=== PATIENT | female | born 1990 | race African-American/Black ===

== ENCOUNTER 2016-05-11 08:47 | Outpatient (CLI) | payer MEDICAID ==
[2016-05-11 09:42] LABS: APPEARANCE,URINE CLEAR; BILIRUBIN,URINE NEGATIVE (NEGATIVE); GLUCOSE, URINE NEGATIVE (NEGATIVE); KETONES,URINE NEGATIVE (NEGATIVE); LEUKOCYTE ESTERASE,URINE NEGATIVE (NEGATIVE); NITRITE,URINE NEGATIVE (NEGATIVE); PROTEIN,URINE NEGATIVE (NEGATIVE); URINE SPECIFIC GRAVITY 1.005; UROBILINOGEN,URINE NEGATIVE mg/dL (<2.0)
[2016-05-11 10:05] LABS: URINE BARBITURATES SCREEN NEGATIVE; URINE METHADONE SCREEN NEGATIVE; URINE PHENCYCLIDINE SCREEN NEGATIVE
--- NOTE | 2016-05-16 09:52 | Antepartum Discharge Summary ---
Antepartum DC Datetime Report Generated by CPN: 05/16/2016 09:52 DIET/ACTIVITY/RESTRICTIONS Diet: Regular (05/11/2016 10:51:Mila Camp, RNC) Diet: Regular (05/11/2016 09:32:Tootie Lee RN) Activity: Normal Activity (05/11/2016 10:51:Mila Camp, RNC) Activity: Normal Activity (05/11/2016 09:32:Tootie Lee RN) Activity Restrictions: No Sexual Activity (05/11/2016 10:51:Mila Camp, RNC) TEACHING/INSTRUCTIONS/REFERRALS Instructions Given To: patient (05/11/2016 10:51:JENNIFER Red) Instructions Given To: patient (05/11/2016 09:32:JENNIFER Red) Instructions Understood: Patient Verbalized Understanding; Support Person Verbalized Understanding (05/11/2016 10:51:JENNIFER Red) Instructions Understood: Patient Verbalized Understanding (05/11/2016 09:32:Tootie Lee RN) Referrals: None (05/11/2016 10:51:JENNIFER Red) Referrals: None (05/11/2016 09:32:Tootie Lee RN) Educational Materials- Other: care notes reviewed and signed for kick counts and labor signs and symptoms to report (05/11/2016 10:51:JENNIFER Red) Educational Materials- Other: PTL _ KICK COUNTS CARE NOTES GIVEN TO PT- QUESTIONS ANSWERED (05/11/2016 09:32:Tootie Lee RN) DISCHARGE INFORMATION Discharged AMA: No (05/11/2016 10:51:JENNIFER Red) Discharged AMA: No (05/11/2016 09:32:Tootie Lee RN) Discharge Date/Time: 05/11/2016 10:58 (05/11/2016 10:51:JENNIFER Red) Discharge Date/Time: 05/11/2016 10:58 (05/11/2016 09:32:JENNIFER Red) Discharged To: Home (05/11/2016 10:51:JENNIFER Red) Discharged To: Home (05/11/2016 09:32:Tootie Lee RN) Discharge Provider Name: Polly Humphrey (05/11/2016 09:32:JENNIFER Red) Accompanied By: self (05/11/2016 09:32:JENNIFER Red) Discharge Method: Ambulatory (05/11/2016 09:32:Tootie Lee RN) Condition: Stable (05/11/2016 09:32:Tootie Lee RN) FOLLOW UP INFORMATION Follow Up With: [email or web address] (05/11/2016 09:32:JENNIFER Red) Follow Up On: As Scheduled (05/11/2016 09:32:JENNIFER Red) Follow Up Phone Number: [email or web address] - (05/11/2016 09:32:JENNIFER Red) GENERAL INSTR-CALL PROVIDER IF: Contractions: Contractions or cramps become more frequent than 8 in one hour or 4 in 20 minutes (05/11/2016 09:32:JENNIFER Red) Period Like Cramps: Period-like cramps or low dull backache that may come and go (05/11/2016 09:32:JENNIFER Red) Cramps/Diarrhea: Abdominal cramps that may be accompanied by diarrhea (05/11/2016 09:32:JENNIFER Red) Gush of Fluid/Blood: Gush of fluid or blood from your vagina (it is normal to have spotting after vaginal exam or intercourse) (05/11/2016 09:32:JENNIFER Red) Vaginal Discharge: Change in the type or amount of vaginal discharge (05/11/2016 09:32:JENNIFER Red) Decreased Movement: Your baby is not moving as much as usual- 4 movements in 1 hour after drinking and resting on side (05/11/2016 09:32:JENNIFER Red)
--- NOTE | 2016-05-16 09:52 | L&D Current Admission ---
Current Admit Datetime Report Generated by CPN: 05/16/2016 09:52 ADMISSION INFORMATION Chief Complaint: Contractions; Uterine Cramping (05/11/2016 09:15:Tootie Lee RN)
--- NOTE | 2016-05-16 09:53 | L&D Flow Sheet ---
LD Flowsheet Datetime Report Generated by CPN: 05/16/2016 09:53 Datetime: 05/11/2016 10:41 Pain Pain Scale: 0 (Mila Camp, RNC) Pain Presence: None/Denies (Mila Camp, RNC) Pain Type: N/A (Mila Camp, RNC) Patient Care Comments: EFM off for discharge to home . See discharge summary (Mila Camp, RNC) LaborFlag: OB Triage (QS system process) Datetime: 05/11/2016 10:40 Uterine Activity Monitor Mode: External; Palpation (Mila Camp, RNC) Frequency (min): irregular (Mila Camp, RNC) Quality: Mild (Mila Camp, RNC) Duration (sec): 30-40 (Mila Camp, RNC) Resting Tone (Palpate): Relaxed (Mila Camp, RNC) Assessment A Monitor Mode: External US; Auscultation (Mila Camp, RNC) FHR Baseline Rate : 140 (Mila Camp, RNC) FHR Baseline Changes: No Baseline Change (Mila Camp, RNC) Variability: Moderate 6-25 bpm (Mila Camp, RNC) Accelerations: 15X15 (Mila Camp, RNC) Decelerations: None (Mila Camp, RNC) Datetime: 05/11/2016 10:32 Provider Reviewed Strip: Yes (Mila Camp, RNC) Communication Communication: Provider Orders Received (Mila Camp, RNC) Communication Comments: H Kam CNM present of unit , strip and history reviewed. Labs noted. Discharge orders received (Mila Camp, RNC) Datetime: 05/11/2016 10:30 Uterine Activity Monitor Mode: External; Palpation (Mila Camp, RNC) Monitor Interventions for UA: [place] Adjusted (Mila Camp, RNC) Frequency (min): denies (Mila Camp, RNC) Resting Tone (Palpate): Relaxed (Mila Camp, RNC) Assessment A Monitor Mode: External US; Auscultation (Mila Camp, RNC) Monitor Interventions for FHR: Ultrasound Adjusted (Mila Camp, RNC) FHR Baseline Rate : 140 (Mila Camp, RNC) FHR Baseline Changes: No Baseline Change (Mila Camp, RNC) Variability: Moderate 6-25 bpm (Mila Camp, RNC) Accelerations: 15X15 (Mila Camp, RNC) Decelerations: None (Mila Camp, RNC) Datetime: 05/11/2016 10:14 NBP Sys/Margarita/Mean (mmHg): 96 (QS system process) : 51 (QS system process) : 69 (QS system process) Pulse: 93 (QS system process) Respirations: 16 (Mila Camp, RNC) LaborFlag: OB Triage (QS system process) Datetime: 05/11/2016 10:00 Uterine Activity Monitor Mode: External; Palpation (Mila Camp, RNC) Monitor Interventions for UA: [place] Adjusted (Mila Camp, RNC) Frequency (min): irregular (Mila Camp, RNC) Quality: Mild (Mila Camp, RNC) Duration (sec): 40-50 (Mila Camp, RNC) Pattern: Normal: <= 5 Contractions in 10 Minutes (Mila Camp, RNC) Resting Tone (Palpate): Relaxed (Mila Camp, RNC) Assessment A Monitor Mode: External US; Auscultation (Mila Camp, RNC) FHR Baseline Rate : 140 (Mila Camp, RNC) FHR Baseline Changes: No Baseline Change (Mila Camp, RNC) Variability: Moderate 6-25 bpm (Mila Camp, RNC) Accelerations: 15X15 (Mila Camp, RNC) Decelerations: None (Mila Camp, RNC) Datetime: 05/11/2016 09:44 NBP Sys/Margarita/Mean (mmHg): 95 (QS system process) : 50 (QS system process) : 66 (QS system process) Pulse: 85 (QS system process) Respirations: 16 (Mila Camp, RNC) LaborFlag: OB Triage (QS system process) Datetime: 05/11/2016 09:30 Uterine Activity Monitor Mode: External; Palpation (Mila Camp, RNC) Frequency (min): denies (Mila Camp, RNC) Resting Tone (Palpate): Relaxed (Mila Camp, RNC) Assessment A Monitor Mode: External US; Auscultation (Mila Camp, RNC) FHR Baseline Rate : 150 (Mila Camp, RNC) FHR Baseline Changes: No Baseline Change (Mila Camp, RNC) Variability: Moderate 6-25 bpm (Mila Camp, RNC) Accelerations: 15X15 (Mila Camp, RNC) Decelerations: None (Mila Camp, RNC) Datetime: 05/11/2016 09:15 Vital Signs Stage of : OB Triage (Tootie Lee RN) NBP Sys/Margarita/Mean (mmHg): 90 (QS system process) : 55 (QS system process) : 70 (QS system process) Pulse: 79 (QS system process) Uterine Activity Monitor Mode: External (Tootie Lee RN) Monitor Interventions for UA: [place] Adjusted (Tootie Lee RN) Frequency (min): IRREG (Tootie Lee, RN) Resting Tone (Palpate): Relaxed (Tootie Lee, JAIRON) Assessment A Monitor Mode: External US (Tootie Lee, JAIRON) Monitor Interventions for FHR: Ultrasound Adjusted (Tootie Lee, JAIRON) FHR Baseline Rate : 150 (Tootie Lee, JAIRON) Pain Pain Scale: 0 (Tootie Lee, JAIRON) Pain Presence: None/Denies (Tootie Lee, JAIRON) Pain Type: N/A (Tootie Lee, JAIRON) Pain Goal: 1 (Tootie Lee, JAIRON) Pain Relief Measures: Comfort Measures (Tootie Lee, JAIRON) Vaginal Exam Dilatation (cm): 1.0 (Tootie Lee RN) Effacement (%): 0 (Tootie Lee RN) Station: -3 (Tootie Lee RN) Exam by: Brad PIZANO CNM IN OFFICE (Tootie Lee RN) Membrane Status: Intact (Tootie Lee RN) Vaginal Bleeding: None (Tootie Lee RN) Maternal Assessment Level of Consciousness: Fully Conscious (Tootie Lee RN) DTR's/Clonus: DTRs 1+; No Clonus (Tootie Lee RN) Headache: Denies (Tootie Lee RN) Nausea/Vomiting: Present (Annotations: NAUSEA X 2 WEEKS- NO EMESIS) (Tootie Lee RN) RUQ Epigastric Pain: Denies (Tootie Lee, JAIRON) Patient Care Patient Position/Activity: Left Tilt; Low Fowlers (Tootie Lee RN) I/O Interventions: Popsicle; Up to BR (Tootie Lee RN) Teaching Instructional Method: Verbal; Patient Instructed; Verbalized Understanding (Tootie Lee RN) Plan of Care: Plan of Care Discussed; Labor (Tootie Lee RN) Unit Routine: Duarte to Room; Call Nicholas; Bed; Phone/Cell Phone Use; Unit Personnel; Handwashing; Monitoring; Safety/Fall Risk Prevention; Diet/Nutrition Services; Bathroom Privileges (Tootie Lee RN) Pain Management: Pain Scale/Goals; Comfort Measures (Tootie Lee RN) PTL/PROM: Hydration (Tootie Lee RN) Related: Common Discomforts of ; Maternal Physical Changes; Maternal Emotional Changes; Nutrition; Hydration; Activity and Rest (Tootie Lee RN) Communication Communication: RN at Bedside; RN Reviewed Strip (Tootie Lee RN) LaborFlag: OB Triage (QS system process) Datetime: 05/11/2016 09:10 Teaching Instructional Method: Demo; Verbal; Patient Instructed; Verbalized Understanding (JENNIFER Red) Plan of Care: Plan of Care Discussed; Labor (JENNIFER Red) Unit Routine: Duarte to Room; Call Nicholas; Bed (JENNIFER Red) Related: Nutrition; Hydration (JENNIFER Red)
--- NOTE | 2016-05-16 09:53 | L&D General Admission ---
General Admit Datetime Report Generated by N: 05/16/2016 09:52 INFORMATION EDC: 07/05/2016 00:00 (05/11/2016 08:47:Tootie Lee RN) : 4 (05/11/2016 08:47:Tootie Lee RN) Para: 3 (05/11/2016 10:51:JENNIFER Red) Para: 3 (05/11/2016 09:32:Tootie Lee RN) Para: 3 (05/11/2016 08:47:Tootie Lee RN) Term: 3 (05/11/2016 08:47:Tootie Lee RN) : 0 (05/11/2016 08:47:Tootie Lee RN) Spontaneous Abortions: 0 (05/11/2016 08:47:Tootie Lee RN) Induced Abortions: 0 (05/11/2016 08:47:Tootie Lee RN) Livin (05/11/2016 08:47:Tootie Lee RN) Cesareans: 0 (05/11/2016 08:47:Tootie Lee RN) VBACs: 0 (05/11/2016 08:47:Tootie Lee RN) Ectopic: 0 (05/11/2016 08:47:Tootie Lee RN) Multiple Births: 0 (05/11/2016 08:47:Tootie Lee RN) Baby, Number in Womb: 1 (05/11/2016 10:51:JENNIFER Red) Baby, Number in Womb: 1 (05/11/2016 09:32:Tootie Lee RN) Baby, Number in Womb: 1 (05/11/2016 08:47:Tootie Lee RN) CARE Primary Lip Cutter And Scorer: [facility] (05/11/2016 08:47:Tootie Lee RN) Adequate Care: Yes (05/11/2016 08:47:Tootie Lee RN) Height (in): 60 (05/11/2016 09:05:QS system process) ALLERGIES Medication Allergy: No (05/11/2016 08:47:Tootie Lee RN) Latex Allergy: No Latex Allergies (05/11/2016 08:47:Tootie Lee RN) Food Allergies: NONE (05/11/2016 08:47:Tootie Lee RN) Environmental Allergies: NONE (05/11/2016 08:47:Tootie Lee RN) COMMUNICATION Primary Language: Hungarian (05/11/2016 08:47:Tootie Lee RN) Medical Tx Preferred Language: Hungarian (05/11/2016 08:47:Tootie Lee RN) Communication Barrier(s): None (05/11/2016 08:47:Tootie Lee RN) DRUG AND ALCOHOL USE Alcohol: No (05/11/2016 08:47:Tootie Lee RN) Cigarettes: Never Smoker. [id number] (05/11/2016 08:47:Tootie Lee RN) Marijuana: No (05/11/2016 08:47:Tootie Lee RN) Cocaine: No (05/11/2016 08:47:Tootie Lee RN) Other Illicit Drugs: No (05/11/2016 08:47:Tootie Lee RN) VACCINE HISTORY Influenza Vaccine: No (05/11/2016 08:47:Tootie Lee RN) Pneumococcal Vaccine: No (05/11/2016 08:47:Tootie Lee RN) Tetanus Vaccine: Uncertain (05/11/2016 08:47:Tootie Lee RN) Tdap Vaccine: No (05/11/2016 08:47:Tootie Lee RN) Hepatitis B Vaccine: Yes (05/11/2016 08:47:Tootie Lee RN) Stereoptician: [facility] (05/11/2016 08:47:Tootie Lee RN) Feeding Preference: Breast (05/11/2016 08:47:Tootie Lee RN) Benefit of Breast Feed Discussed: Yes (05/11/2016 08:47:Tootie Lee RN) Circumcision: Yes (05/11/2016 08:47:Tootie Lee RN) Classes Attended: No (05/11/2016 08:47:Tootie Lee RN) Tubal Ligation: No (05/11/2016 08:47:Tootie Lee RN) Tubal Authorization Signed: N/A (05/11/2016 08:47:Tootie Lee RN) Consent: N/A (05/11/2016 08:47:Tootie Lee RN) Consent Signed: N/A (05/11/2016 08:47:Tootie Lee RN) Pain Management Plans: Epidural (05/11/2016 08:47:Tootie Lee RN) Plans for Labor and Delivery: None (05/11/2016 08:47:Tootie Lee RN) Support Person: ALISA ESCOBAR (05/11/2016 08:47:Tootie Lee RN) Support Person Relationship: Mother (05/11/2016 08:47:Tootie Lee RN) Cultural/Spritual Practice: No (05/11/2016 08:47:Tootie Lee RN) Spir/Cult Dietary Needs: No (05/11/2016 08:47:Tootie Lee RN) LIVING SITUATION/DISCHARGE PLAN Living Arrangements: Apartment (05/11/2016 08:47:Tootie Lee RN) Adequate Access to:: Electric; Heat; Refrigeration; Plumbing/Running water; Phone; Transportation (05/11/2016 08:47:Tootie Lee RN) WIC Program: Yes (05/11/2016 08:47:Tootie Lee RN) Discharge Hand Tier Person: MOTHER (05/11/2016 08:47:Tootie Lee RN) Person to Help after Discharge: MARY (05/11/2016 08:47:Tootie Lee RN) Currently Using Commun Resources: No (05/11/2016 08:47:Tootie Lee RN) Outside Agency/Property Officer: No (05/11/2016 08:47:Tootie Lee RN) Car Seat for Discharge: No (05/11/2016 08:47:Tootie Lee RN) Need Help to Obtain Car Seat: WILL HAVE BEFORE D/C HOME (05/11/2016 08:47:Tootie eLe RN) Adoption Requested: No (05/11/2016 08:47:Tootie Lee RN) Pt Contact w/infant Post : N/A (05/11/2016 08:47:Tootie Lee RN) OB/PREVIOUS HISTORY Previous Procedures: Ultrasound (05/11/2016 08:47:Tootie Lee RN) Current Procedures: Ultrasound (05/11/2016 08:47:Tootie Lee RN) History of Previous : No (05/11/2016 08:47:Tootie Lee RN) History of Gestational Diabetes: No (05/11/2016 08:47:Tootie Lee RN) History of PIH: No (05/11/2016 08:47:Tootie Lee RN) History of Incompetent Cervix: No (05/11/2016 08:47:Tootie Lee RN) History of Placenta Previa/Abrup: No (05/11/2016 08:47:Tootie Lee RN) History of Macrosomia: No (05/11/2016 08:47:Tootie Lee RN) History of IUGR: No (05/11/2016 08:47:Tootie Lee RN) History of Hemorrhage: No (05/11/2016 08:47:Tootie Lee RN) History of Loss/Stillborn: No (05/11/2016 08:47:Tootie Lee RN) History of : No (05/11/2016 08:47:Tootie Lee RN) History of D (Rh) Sensitization: No (05/11/2016 08:47:Tootie Lee RN) History Recurrent Loss/Stillborn: No (05/11/2016 08:47:Tootie Lee RN) History Depression/PP Depression: No (05/11/2016 08:47:Tootie Lee RN) History of Uterine Anomaly/EVANGELIST: No (05/11/2016 08:47:Tootie Lee RN) History of Infertility: No (05/11/2016 08:47:Tootie Lee RN) History of ART Treatment: No (05/11/2016 08:47:Tootie Lee RN) History of EVANGELIST: No (05/11/2016 08:47:Tootie Lee RN) MEDICAL HISTORY Med Hx Diabetes: No (05/11/2016 08:47:Tootie Lee RN) Med Hx Hypertension: No (05/11/2016 08:47:Tootie Lee RN) Med Hx Heart Disease: No (05/11/2016 08:47:Tootie Lee RN) Med Hx Autoimmune Disorder: No (05/11/2016 08:47:Tootie Lee RN) Med Hx Kidney Disease/UTI: No (05/11/2016 08:47:Tootie Lee RN) Med Hx Neurologic/Epilepsy: No (05/11/2016 08:47:Tootie Lee RN) Med Hx Psychiatric Disorders: No (05/11/2016 08:47:Tootie Lee RN) Med Hx Hepatitis/Liver Disease: No (05/11/2016 08:47:Tootie Lee RN) Med Hx Varicosities/Phlebitis: No (05/11/2016 08:47:Tootie Lee RN) Med Hx Thyroid Dysfunction: No (05/11/2016 08:47:Tootie Lee RN) Med Hx Trauma/Violence: No (05/11/2016 08:47:Tootie Lee RN) Med Hx Blood Transfusion: No (05/11/2016 08:47:Tootie Lee RN) Med Hx Pulmonary (Asthma,TB): No (05/11/2016 08:47:Tootie Lee RN) Med Hx Breast: No (05/11/2016 08:47:Tootie Lee RN) Med Hx WINDOW UNIT AIR CONDITIONING 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 Surgery: No (05/11/2016 08:47:Tootie Lee RN) Med Hx Hospitalization/Surgery: Yes (05/11/2016 08:47:Tootie Lee RN) Med Hx Anesthetic Complications: No (05/11/2016 08:47:Tootie Lee RN) Med Hx Abnormal Pap Smear: Yes (05/11/2016 08:47:Tootie Lee RN) Other Medical Diseases: Yes (05/11/2016 08:47:Tootie Lee RN) Med Hx Significant Family Hx: No (05/11/2016 08:47:Tootie Lee RN) Details of Med/Surg Hx: CHILDBIRTH ABN PAP THIS - REPEAT PP ANEMIA THIS WITH IRON INFUSION (05/11/2016 08:47:Tootie Lee RN) INFECTIOUS HISTORY Inf Hx Gonorrhea: No (05/11/2016 08:47:Tootie Lee RN) Inf Hx Chlamydia: No (05/11/2016 08:47:Tootie Lee RN) Inf Hx Syphilis: No (05/11/2016 08:47:Tootie Lee RN) Inf Hx HIV/AIDS: No (05/11/2016 08:47:Tootie Lee RN) Inf Hx Human Papilloma Virus: No (05/11/2016 08:47:Tootie Lee RN) Inf Hx Pt/Partner Genital Herpes: No (05/11/2016 08:47:Tootie Lee RN) Inf Hx Tuberculosis/Exposure: No (05/11/2016 08:47:Tootie Lee RN) Inf Hx Hepatitis B,C: No (05/11/2016 08:47:Tootie Lee RN) Inf Hx Rash or Viral Illness: No (05/11/2016 08:47:Tootie Lee RN) GENETIC HISTORY Gen Hx Age >=35 at SLOAN: No (05/11/2016 08:47:Tootie Lee RN) Gen Hx Thalassemia: No (05/11/2016 08:47:Tootie Lee RN) Gen Hx Congenital Heart Defect: No (05/11/2016 08:47:Tootie Lee RN) Gen Hx Neural Tube Defect: No (05/11/2016 08:47:Tootie Lee RN) Gen Hx Down's Syndrome: No (05/11/2016 08:47:Tootie Lee RN) Gen Hx Terry-Sachs: No (05/11/2016 08:47:Tootie Lee RN) Gen Hx Zi: No (05/11/2016 08:47:Tootie Lee RN) Gen Hx Familial Dysautonomia: No (05/11/2016 08:47:Tootie Lee RN) Gen Hx Sickle Cell Disease/Trait: No (05/11/2016 08:47:Tootie Lee RN) Gen Hx Hemophilia/Blood Disorder: No (05/11/2016 08:47:Tootie Lee RN) Gen Hx Muscular Dystrophy: No (05/11/2016 08:47:Tootie Lee RN) Gen Hx Cystic Fibrosis: No (05/11/2016 08:47:Tootie Lee RN) Gen Hx Huntingtons Chorea: No (05/11/2016 08:47:Tootie Lee RN) Gen Hx Mental Retardation/Autism: No (05/11/2016 08:47:Tootie Lee RN) Gen Hx Tested for Fragile X: No (05/11/2016 08:47:Tootie Lee RN) Gen Hx Other Inher/Chromosomal: No (05/11/2016 08:47:Tootie Lee RN) Gen Hx Maternal Metabolic DO: No (05/11/2016 08:47:Tootie Lee RN) Gen Hx Pt Father or FOB Defect: No (05/11/2016 08:47:Tootie Lee RN) Gen Hx Other Genetic History: No (05/11/2016 08:47:Tootie Lee RN) Gen Hx Drugs/Meds since LMP: No (05/11/2016 08:47:Tootie Lee RN)
--- NOTE | 2016-05-16 09:54 | Non Stress Test Report ---
Non Stress Test Datetime Report Generated by CPN: 05/16/2016 09:53 DEMOGRAPHIC EGA NST: 32.1 INDICATION Indication for Study: Ordered by Provider Indication for Study (NST) Other: LABOR CHECK- UC'S VITAL SIGNS Temperature - NST: 98.1 Pulse - NST: 79 RESP - NST: 16 NBPSYS NST: 90 NBPDIA NST: 55 MONITORING Monitor Explained: Monitor Explained; Test Explained; Patient Verbalized Understanding Time on Monitor: 05/11/2016 09:11 NST INTERVENTIONS NST Interventions: PO Hydration; Reposition Patient BABY A: [id number] Movement : Present
--- NOTE | 2016-05-16 09:54 | L&D Discharge Summary ---
OB Discharge Summary Datetime Report Generated by CPN: 05/16/2016 09:54 DISCHARGE DIAGNOSIS Diagnosis/Symptoms: Labor Diagnoses/Symptoms Other: iup 32.1 contractions not in labor Gestation: 32.1 Number of Babies in Womb: 1 Parity: 3 DIET/ACTIVITY/RESTRICTIONS Diet: Regular Activity: Normal Activity Activity Restrictions: No Sexual Activity TEACHING/INSTRUCTIONS/REFERRALS Instructions Given To: patient Instructions Understood: Patient Verbalized Understanding; Support Person Verbalized Understanding Referrals: None Educational Materials- Other: care notes reviewed and signed for kick counts and labor signs and symptoms to report DISCHARGE INFORMATION Discharged AMA: No Discharge Date/Time: 05/11/2016 10:58 Discharged To: Home Discharge Provider Name: Kam, H Accompanied By: self Discharge Method: Ambulatory Condition: Stable FOLLOW UP INFORMATION Follow Up With: [facility] Follow Up On: As Scheduled Follow Up Phone Number: [facility] - GENERAL INSTR-CALL PROVIDER IF: Contractions: Contractions or cramps become more frequent than 8 in one hour or 4 in 20 minutes Period Like Cramps: Period-like cramps or low dull backache that may come and go Cramps/Diarrhea: Abdominal cramps that may be accompanied by diarrhea Gush of Fluid/Blood: Gush of fluid or blood from your vagina (it is normal to have spotting after vaginal exam or intercourse) Vaginal Discharge: Change in the type or amount of vaginal discharge Decreased Movement: Your baby is not moving as much as usual- 4 movements in 1 hour after drinking and resting on side
== END 2016-05-11 10:58 | disposition home or self-care (01) ==
LOC: LC 08:47
PROVIDERS: ATTEND Obstetrics & Gynecology
PROC: 4A1HXCZ Monitoring of Products of Conception, Cardiac Rate, External Approach (ICD-10-PCS; principal; 2016-05-11)
DX: Z34.93 Encounter for supervision of normal pregnancy, unspecified, third trimester (principal); Z3A.32 32 weeks gestation of pregnancy
CPT/HCPCS: 59025; 80307; 81001

== ENCOUNTER 2016-05-18 15:40 | Outpatient (CLI) | payer MEDICAID ==
[2016-05-18] MEDS ORDERED: BETAMET ACET/BETAMET NA INJ 6 MG/1 ML IM ONE (15:50)
[2016-05-18 16:17] LABS: APPEARANCE,URINE CLEAR; BILIRUBIN,URINE NEGATIVE (NEGATIVE); GLUCOSE, URINE NEGATIVE (NEGATIVE); KETONES,URINE NEGATIVE (NEGATIVE); LEUKOCYTE ESTERASE,URINE NEGATIVE (NEGATIVE); NITRITE,URINE NEGATIVE (NEGATIVE); PROTEIN,URINE NEGATIVE (NEGATIVE); URINE SPECIFIC GRAVITY 1.009; UROBILINOGEN,URINE NEGATIVE mg/dL (<2.0)
[2016-05-18] MEDS ORDERED: BETAMET ACET/BETAMET NA INJ 6 MG/1 ML ONE (16:21)
[2016-05-18 16:33] LABS: URINE BARBITURATES SCREEN NEGATIVE; URINE METHADONE SCREEN NEGATIVE; URINE PHENCYCLIDINE SCREEN NEGATIVE
[2016-05-18 17:44] LABS: CHLAM PCR NOT DETECTED (NOT DETECT)
--- NOTE | 2016-05-18 18:14 | Non Stress Test Report ---
Non Stress Test Datetime Report Generated by CPN: 05/18/2016 18:14 DEMOGRAPHIC EGA NST: 33.1 EGA NST: 32.1 INDICATION Indication for Study: labor Indication for Study: Ordered by Provider Indication for Study (NST) Other: LC Indication for Study (NST) Other: LABOR CHECK- UC'S VITAL SIGNS Temperature - NST: 98.1 Pulse - NST: 79 RESP - NST: 16 NBPSYS NST: 90 NBPDIA NST: 55 MONITORING Monitor Explained: Monitor Explained; Test Explained; Patient Verbalized Understanding Monitor Explained: Monitor Explained; Test Explained; Patient Verbalized Understanding Time on Monitor: 05/18/2016 17:02 Time on Monitor: 05/11/2016 09:11 Time off Monitor: 05/18/2016 17:50 NST Duration: 48 NST INTERVENTIONS NST Interventions: PO Hydration; IV Fluids NST Interventions: PO Hydration; Reposition Patient Physician Notified NST: Shaver BABY A: [id number] BABY A Movement : Present Movement : Present Contraction Frequency : 3-11 FHR Baseline : 150 Accelerations : 15X15 Decelerations : Variable Variability : Moderate 6-25bpm NST Review: Meets Criteria for Reactive NST NST Review and Verified By : Mila Camp RNC NST Results: Reactive NST COMMENTS NST Comments: Dr. Shaver on unit and reviewed strip NST REPORT Report Trigger: Send Report
--- NOTE | 2016-05-19 04:45 | L&D Flow Sheet ---
LD Flowsheet Datetime Report Generated by CPN: 05/19/2016 04:45 Datetime: 05/18/2016 17:50 I/O Interventions: Up to BR (Maricruz Garcia, RN) Datetime: 05/18/2016 17:49 Provider Reviewed Strip: Yes (CATHI Millard Communication: Provider Orders Received (Maricruz Garcia RN) Provider Notified (Name): Dr. Shaver (CATHI Millard Notification Reason: Status Update; Status; Labor Status; Uterine Activity (Maricruz Garcia RN) Communication Comments: Notified provider of FHTs and CTXs. Received order to discharge patient with labor signs and symptoms and when to return to the hospital. Instruct patient to return to hospital at 1600 tomorrow for her 2nd Betamethsone shot (Maricruz Garcia RN) Datetime: 05/18/2016 17:30 Monitor Mode: External (Maricruz Garcia RN) Frequency (min): irreg (Maricruz Garcia RN) Quality: Mild (Maricruz Garcia RN) Duration (sec): 50-60 (Maricruz Garcia RN) Resting Tone (Palpate): Relaxed (Maricruz Garcia RN) Monitor Mode: External US (Maricruz Garcia RN) FHR Baseline Rate : 150 (Maricruz Garcia RN) Variability: Moderate 6-25 bpm (Maricruz Garcia RN) Accelerations: 15X15 (Maricruz Garcia RN) Decelerations: Variable (Mraicruz aGrcia RN) Datetime: 05/18/2016 17:27 NBP Sys/Margarita/Mean (mmHg): 107 (QS system process) : 55 (QS system process) : 76 (QS system process) Pulse: 99 (QS system process) LaborFlag: OB Triage (QS system process) Datetime: 05/18/2016 17:06 Provider Reviewed Strip: Yes (Maricruz Garcia RN) Plan of Care: Plan of Care Discussed (Maricruz Garcia RN) Teaching Comments: Dr. Shaver at bedside discussing plan of care with patient. Will infuse this second bag of LR and if contractions remain far apart she will be able to be discharged home and return tomorrow at 1600 for her second betamethasone shot. If her contractions pick up driver and are close together we will observe her overnight. Patient verbalized understanding (Maricruz Garcia RN) Communication: RN at Bedside; Provider at Bedside (Maricruz Garcia RN) Datetime: 05/18/2016 17:04 Exam by: Dr. Shaver (Maricruz Garcia RN) Vaginal Bleeding: None (Maricruz Garcia RN) Cervix, Position: Posterior (Maricruz Garcia RN) Vaginal Exam Comments: 2-3/thick/high (Maricruz Garcia RN) Datetime: 05/18/2016 17:03 IV/Blood Work: New IV Bag Hung (Maricruz Garcia RN) Datetime: 05/18/2016 17:00 Monitor Mode: External (Maricruz Garcia RN) Frequency (min): 6.5-11 (Maricruz Garcia RN) Quality: Mild (Maricruz Garcia RN) Duration (sec): 60-90 (Maricruz Garcia RN) Resting Tone (Palpate): Relaxed (Maricruz Garcia RN) Monitor Mode: External US (Maricruz Garcia RN) FHR Baseline Rate : 150 (Maricruz Garcia RN) Variability: Moderate 6-25 bpm (Maricruz Garcia RN) Accelerations: 15X15 (Maricruz Marlatt, RN) Datetime: 05/18/2016 16:59 NBP Sys/Margarita/Mean (mmHg): 100 (QS system process) : 57 (QS system process) : 74 (QS system process) Pulse: 100 (QS system process) LaborFlag: OB Triage (QS system process) Datetime: 05/18/2016 16:58 I/O Interventions: Up to BR (Maricruz Garcia RN)
--- NOTE | 2016-05-19 04:45 | L&D Admission Assessment ---
LD ADM ASMT Datetime Report Generated by CPN: 05/19/2016 04:45 PATIENT ASSESSMENT Assessment Type: Triage (05/18/2016 15:55:Maricruz Garcia, RN) WEIGHT Weight (lb): 145 (05/18/2016 16:32:QS system process) Weight (kg): 65.9 (05/18/2016 16:32:QS system process) BMI: 28.3 (05/18/2016 16:32:QS system process) PAIN Pain Scale: 2 (05/18/2016 15:55:Maricruz Garcia RN) Pain Presence: Intermittent (05/18/2016 15:55:Maricruz Garcia RN) Pain Type: Cramping; Contraction (05/18/2016 15:55:Maricruz Garcia RN) Pain Location: Abdomen (05/18/2016 15:55:Maricruz Garcia RN) Pain Goal: 0 (05/18/2016 15:55:Maricruz Garcia RN) Pain Related to Contraction: Yes (05/18/2016 15:55:Maricruz Garcia RN) CONTRACTIONS Frequency (min): irreg (05/18/2016 17:30:Maricruz Garcia RN) Frequency (min): 6.5-11 (05/18/2016 17:00:Maricruz Garcia RN) Frequency (min): 3-7.5 (05/18/2016 16:30:Maricruz Garcia RN) Frequency (min): she says they come and go "maybe 5-10 minutes" (05/18/2016 15:55:Maricruz Garcia RN) Duration (sec): 50-60 (05/18/2016 17:30:Maricruz Garcia RN) Duration (sec): 60-90 (05/18/2016 17:00:Maricruz Garcia RN) Duration (sec): 60-90 (05/18/2016 16:30:Maricruz Garcia RN) Quality: Mild (05/18/2016 17:30:Maricruz Garcia RN) Quality: Mild (05/18/2016 17:00:Maricruz Garcia RN) Quality: Mild (05/18/2016 16:30:Maricruz Garcia RN) Resting Tone [place]: Relaxed (05/18/2016 17:30:Maricruz Garcia RN) Resting Tone [place]: Relaxed (05/18/2016 17:00:Maricruz Garcia RN) Resting Tone [place]: Relaxed (05/18/2016 16:30:Maricruz Garcia RN) VAGINAL EXAM Dilatation (cm): 3.0 (05/18/2016 15:55:Maricruz Garcia RN) Effacement (%): 0 (05/18/2016 15:55:Maricruz Garcia RN) Station: -3 (05/18/2016 15:55:Maricruz Garcia RN) NEURO Level of Consciousness: Fully Conscious (05/18/2016 15:55:Maricruz Garcia RN) DTR's/Clonus: DTRs 2+; No Clonus (05/18/2016 15:55:Maricruz Garcia RN) Headache: Denies (05/18/2016 15:55:Maricruz Garcia RN) Dizziness: No (05/18/2016 15:55:Maricruz Garcia RN) Blurred Vision: No (05/18/2016 15:55:Maricruz Garcia RN) Extremity Numbness/Tingling : None (05/18/2016 15:55:Maricruz Garcia RN) Extremity Movement: Full Range of Motion (05/18/2016 15:55:Maricruz Garcia RN) CARDIOVASCULAR Heart Rhythm: Regular (05/18/2016 15:55:Maricruz Garcia RN) Nailbeds: [place] (05/18/2016 15:55:Maricruz Garcia RN) Capillary Refill: Less than 3 Seconds (05/18/2016 15:55:Maricruz Garcia RN) Lower Extremities Edema: None (05/18/2016 15:55:Maricruz Garcia RN) Lower Extremities Edema Degree: None (05/18/2016 15:55:Maricruz Garcia RN) Upper Extremities Edema: None (05/18/2016 15:55:Maricruz Garcia RN) Upper Extremities Edema Degree: None (05/18/2016 15:55:Maricruz Garcia RN) Facial Edema: None (05/18/2016 15:55:Maricruz Garcia RN) [place]'s Sign Left Leg: Negative (05/18/2016 15:55:Maricruz Garcia RN) [place]'s Sign Right Leg: Negative (05/18/2016 15:55:Maricruz Garcia RN) RESPIRATORY Respiratory Effort: Unlabored; Regular Rhythm; Equal Expansion (05/18/2016 15:55:Maricruz Garcia RN) Breath Sounds, Left: Clear and Equal (05/18/2016 15:55:Maricruz Garcia RN) Breath Sounds, Right: Clear and Equal (05/18/2016 15:55:Maricruz Garcia RN) Cough Productivity: None (05/18/2016 15:55:Maricruz Garcia RN) GASTROINTESTINAL Nausea/Vomiting: Denies (05/18/2016 15:55:Maricruz Garcia RN) Bowel Sounds: Normoactive; All Quadrants (05/18/2016 15:55:Maricruz Garcia RN) RUQ Epigastric Pain: Denies (05/18/2016 15:55:Maricruz Garcia RN) Diet Type: Regular diet (05/18/2016 15:55:Maricruz Garcia RN) Last Meal: 05/18/2016 13:00 (05/18/2016 15:55:Maricruz Garcia RN) GENITOURINARY Bladder: Nondistended (05/18/2016 15:55:Maricruz Garcia RN) Frequency of Urination: No (05/18/2016 15:55:Maricruz Garcia RN) Urination Burning: No (05/18/2016 15:55:Maricruz Garcia RN) CVA Tenderness: No (05/18/2016 15:55:Maricruz Garcia RN) Vaginal Bleeding: None (05/18/2016 15:55:Maricruz Garcia RN) Vaginal Discharge Amount: None (05/18/2016 15:55:Maricruz Garcia RN) Vaginal Discharge Color: N/A (05/18/2016 15:55:Maricruz Garcia RN) Vaginal Discharge Character: None (05/18/2016 15:55:Maricruz Garcia RN) INTEGUMENTARY Skin Color: Normal for Race (05/18/2016 15:55:Maricruz Garcia RN) Skin Temperature: Warm (05/18/2016 15:55:Maricruz Garcia RN) Skin Moisture: Dry (05/18/2016 15:55:Maricruz Garcia RN) TOMAS SKIN ASSESSMENT Tomas Scale Sensory Perception: No Impairment- Responds to verbal commands. Has no sensory deficit which would limit ability to feel or voice pain or discomfort (05/18/2016 15:55:Maricruz Garcia RN) Tomas Scale Moisture: Rarely Moist- Skin is usually dry. Linen only requires changing at routine intervals (05/18/2016 15:55:Maricruz Garcia RN) Tomas Scale Activity: Walks Frequently- Walks outside the room at least twice a day and inside room at least every 2 hours during the day. (05/18/2016 15:55:Maricruz Garcia RN) Tomas Scale Mobility: No Limitations- Makes major and frequent changes in position without assistance (05/18/2016 15:55:Maricruz Garcia RN) Tomas Scale Nutrition: Excellent- Eats most of every meal. Never refuses a meal. Usually eats a total of 4 or more servings of meat and dairy products. Occasionally eats between meals. Does not require supplementation (05/18/2016 15:55:Maricruz Garcia RN) Tomas Scale Friction and Shear: No Apparent Problem- Moves in bed and in chair independently and has sufficient muscle strength to lift up completely during move. Maintains good position in bed or chair at all times (05/18/2016 15:55:Maricruz Garcia RN) Tomas Scale Total: 23 (05/18/2016 15:55:QS system process) Tomas Scale Risk: No Risk of Pressure Ulcer Noted at this Time (05/18/2016 15:55:QS system process) SUPPORT Emotional State: Calm/Relaxed (05/18/2016 15:55:Maricruz Garcia RN) SAFETY Call Nicholas Within Reach: Yes (05/18/2016 15:55:Maricruz Garcia RN) Side Rails Up: Yes (05/18/2016 15:55:Maricruz Garcia RN) Bed Wheels Locked: Yes (05/18/2016 15:55:Maricruz Garcia RN) Arm Bands Present: Yes (05/18/2016 15:55:Maricruz Garcia RN) FALL SCREEN Fall Risk History of Falling: (0) No (05/18/2016 15:55:Maricruz Garcia RN) Fall Risk Secondary Diagnosis: (0) No (05/18/2016 15:55:Maricruz Garcia RN) Fall Risk Ambulatory Aid: (0) None/Bedrest/Wheelchair/Nurse Assist (05/18/2016 15:55:Maricruz Garcia RN) Fall Risk IV Therapy: (0) No (05/18/2016 15:55:Maricruz Garcia RN) Fall Risk Gait: (0) Normal/Bedrest/Immobile (05/18/2016 15:55:Maricruz Garcia RN) Fall Risk Mental Status: (0) Oriented to Own Ability (05/18/2016 15:55:Maricruz Garcia RN) Fall Risk Score: 0 (05/18/2016 15:55:QS system process) Fall Risk Score Definition: No Risk: No action required (05/18/2016 15:55:QS system process) BABY A FHR Baseline Rate (bpm) Baby A: 150 (05/18/2016 17:30:Maricruz Garcia RN) FHR Baseline Rate (bpm) Baby A: 150 (05/18/2016 17:00:Maricruz Garcia RN) FHR Baseline Rate (bpm) Baby A: 160 (05/18/2016 16:30:Maricruz Garcia RN) Variability Baby A: Moderate 6-25 bpm (05/18/2016 17:30:Maricruz Garcia RN) Variability Baby A: Moderate 6-25 bpm (05/18/2016 17:00:Maricruz Garcia RN) Variability Baby A: Moderate 6-25 bpm (05/18/2016 16:30:Maricruz Garcia RN) Accelerations Baby A: 15X15 (05/18/2016 17:30:Maricruz Garcia RN) Accelerations Baby A: 15X15 (05/18/2016 17:00:Maricruz Garcia RN) Accelerations Baby A: 15X15 (05/18/2016 16:30:Maricruz Garcia RN) Decelerations Baby A: Variable (05/18/2016 17:30:Maricruz Garcia RN) Decelerations Baby A: Variable (05/18/2016 16:30:Maricruz Garcia RN) ADDITIONAL COMMENTS Comments: GBS culture obtain _ GC/Chlam culture obtained (05/18/2016 16:00:Maricruz Garcia RN)
--- NOTE | 2016-05-19 04:45 | L&D General Admission ---
General Admit Datetime Report Generated by CPN: 05/19/2016 04:45 INFORMATION Patient Age: 24 (08/07/2014 08:54:QS system process) EDC: 07/05/2016 00:00 (05/11/2016 08:47:Tootie Lee RN) : 4 (05/11/2016 08:47:Tootie Lee RN) Para: 3 (05/11/2016 10:51:JENNIFER Red) Para: 3 (05/11/2016 09:32:Tootie Lee RN) Para: 3 (05/11/2016 08:47:Tootie Lee RN) Term: 3 (05/11/2016 08:47:Tootie Lee RN) : 0 (05/11/2016 08:47:Tootie Lee RN) Spontaneous Abortions: 0 (05/11/2016 08:47:Tootie Lee RN) Induced Abortions: 0 (05/11/2016 08:47:Tootie Lee RN) Livin (05/11/2016 08:47:Tootie Lee RN) Cesareans: 0 (05/11/2016 08:47:Tootie Lee RN) VBACs: 0 (05/11/2016 08:47:Tootie Lee RN) Ectopic: 0 (05/11/2016 08:47:Tootie Lee RN) Multiple Births: 0 (05/11/2016 08:47:Tootie Lee RN) Baby, Number in Womb: 1 (05/11/2016 10:51:JENNIFER Red) Baby, Number in Womb: 1 (05/11/2016 09:32:Tootie Lee RN) Baby, Number in Womb: 1 (05/11/2016 08:47:Tootie Lee RN) CARE Primary 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: [facility] (05/11/2016 08:47:Tootie Lee RN) Adequate Care: Yes (05/11/2016 08:47:Tootie Lee RN) Height (in): 60 (05/11/2016 09:05:QS system process) ALLERGIES Medication Allergy: No (05/11/2016 08:47:Tootie Lee RN) Medication Allergies: No Known Allergies (05/18/2016) (05/18/2016 16:31:QS system process) Medication Allergies: No Known Allergies (10/02/2014) (11/22/2014 17:45:QS system process) Medication Allergies: No Known Allergies (08/24/2014) (09/01/2014 19:47:QS system process) Medication Allergies: No Known Allergies (11/06/2013) (08/07/2014 08:54:QS system process) Latex Allergy: No Latex Allergies (05/11/2016 08:47:Tootie Lee RN) Food Allergies: NONE (05/11/2016 08:47:Tootie Lee RN) Environmental Allergies: NONE (05/11/2016 08:47:Tootie Lee RN) COMMUNICATION Primary Language: Georgian (05/11/2016 08:47:Tootie Lee RN) Medical Tx Preferred Language: Georgian (05/11/2016 08:47:Tootie Lee RN) Communication Barrier(s): None (05/11/2016 08:47:Tootie Lee RN) DEMOGRAPHICS Address: [address] [place] [address] (04/25/2016 12:10:QS system process) Address: [address] [place] [address] (09/01/2014 19:47:QS system process) Address: [address] [place] [address] (08/07/2014 08:54:QS system process) Zipcode: [address] (08/07/2014 08:54:QS system process) Home (09/09/2015 11:52:QS system process) Home (09/09/2014 13:31:QS system process) Home (09/01/2014 19:47:QS system process) Home (08/07/2014 08:54:QS system process) Work (09/09/2014 13:31:QS system process) SSN: [id number] (08/07/2014 08:54:QS system process) Next of Kin Name: ALISA ESCOBAR (08/07/2014 08:54:QS system process) Next of Kin (09/09/2014 13:31:QS system process) Next of Kin (08/07/2014 08:54:QS system process) Next of Kin Relationship: MO (08/07/2014 08:54:QS system process) Date of : 1990 (08/07/2014 08:54:QS system process) Marital Status: Single (08/07/2014 08:54:QS system process) Sex: Female (08/07/2014 08:54:QS system process) Race: (08/07/2014 08:54:QS system process) Ethnicity: Non- or (08/07/2014 08:54:QS system process) Gnosticist: None (08/07/2014 08:54:QS system process) DRUG AND ALCOHOL USE Alcohol: No (05/11/2016 08:47:Tootie Lee RN) Cigarettes: Never Smoker. [id number] (05/11/2016 08:47:Tootie Lee RN) Marijuana: No (05/11/2016 08:47:Tootie Lee RN) Cocaine: No (05/11/2016 08:47:Tootie Lee RN) Other Illicit Drugs: No (05/11/2016 08:47:Tootie Lee RN) VACCINE HISTORY Influenza Vaccine: No (05/11/2016 08:47:Tootie Lee RN) Pneumococcal Vaccine: No (05/11/2016 08:47:Tootie Lee RN) Tetanus Vaccine: Uncertain (05/11/2016 08:47:Tootie Lee RN) Tdap Vaccine: No (05/11/2016 08:47:Tootie Lee RN) Hepatitis B Vaccine: Yes (05/11/2016 08:47:Tootie Lee RN) Admissions Advisor: [facility] (05/11/2016 08:47:Tootie Lee RN) Feeding Preference: Breast (05/11/2016 08:47:Tootie Lee RN) Benefit of Breast Feed Discussed: Yes (05/11/2016 08:47:Tootie Lee RN) Circumcision: Yes (05/11/2016 08:47:Tootie Lee RN) Classes Attended: No (05/11/2016 08:47:Tootie Lee RN) Tubal Ligation: No (05/11/2016 08:47:Tootie Lee RN) Tubal Authorization Signed: N/A (05/11/2016 08:47:Tootie Lee RN) Consent: N/A (05/11/2016 08:47:Tootie Lee RN) Consent Signed: N/A (05/11/2016 08:47:Tootie Lee RN) Pain Management Plans: Epidural (05/11/2016 08:47:Tootie Lee RN) Plans for Labor and Delivery: None (05/11/2016 08:47:Tootie Lee RN) Support Person: ALISA ESCOBAR (05/11/2016 08:47:Tootie Lee RN) Support Person Relationship: Mother (05/11/2016 08:47:Tootie Lee RN) Cultural/Spritual Practice: No (05/11/2016 08:47:Tootie Lee RN) Spir/Cult Dietary Needs: No (05/11/2016 08:47:Tootie Lee RN) LIVING SITUATION/DISCHARGE PLAN Living Arrangements: Apartment (05/11/2016 08:47:Tootie Lee RN) Adequate Access to:: Electric; Heat; Refrigeration; Plumbing/Running water; Phone; Transportation (05/11/2016 08:47:Tootie Lee RN) WIC Program: Yes (05/11/2016 08:47:Tootie Lee RN) Discharge Supervisor Wound Person: MOTHER (05/11/2016 08:47:Tootie Lee RN) Person to Help after Discharge: MARY (05/11/2016 08:47:Tootie Lee RN) Currently Using Commun Resources: No (05/11/2016 08:47:Tootie Lee RN) Outside Agency/Paper Slitter: No (05/11/2016 08:47:Tootie Lee RN) Car Seat for Discharge: No (05/11/2016 08:47:Tootie Lee RN) Need Help to Obtain Car Seat: WILL HAVE BEFORE D/C HOME (05/11/2016 08:47:Tootie Lee RN) Adoption Requested: No (05/11/2016 08:47:Tootie Lee RN) Pt Contact w/infant Post : N/A (05/11/2016 08:47:Tootie Lee RN) LABS Hemoglobin: 14.0 (11/22/2014 17:00:QS system process) Hemoglobin: 13.1 (10/01/2014 19:25:QS system process) Hemoglobin: 13.9 (09/01/2014 21:05:QS system process) Hemoglobin: 13.6 (08/24/2014 10:39:QS system process) Hematocrit: 43.0 (11/22/2014 17:00:QS system process) Hematocrit: 40.7 (10/01/2014 19:25:QS system process) Hematocrit: 43.3 (09/01/2014 21:05:QS system process) Hematocrit: 42.4 (08/24/2014 10:39:QS system process) MCV: 82 (11/22/2014 17:00:QS system process) MCV: 83 (10/01/2014 19:25:QS system process) MCV: 83 (09/01/2014 21:05:QS system process) MCV: 82 (08/24/2014 10:39:QS system process) OB/PREVIOUS HISTORY Previous Procedures: Ultrasound (05/11/2016 08:47:Tootie Lee RN) Current Procedures: Ultrasound (05/11/2016 08:47:Tootie Lee RN) History of Previous : No (05/11/2016 08:47:Tootie Lee RN) History of Gestational Diabetes: No (05/11/2016 08:47:Tootie Lee RN) History of PIH: No (05/11/2016 08:47:Tootie Lee RN) History of Incompetent Cervix: No (05/11/2016 08:47:Tootie Lee RN) History of Placenta Previa/Abrup: No (05/11/2016 08:47:Tootie Lee RN) History of Macrosomia: No (05/11/2016 08:47:Tootie Lee RN) History of IUGR: No (05/11/2016 08:47:Tootie Lee RN) History of Hemorrhage: No (05/11/2016 08:47:Tootie Lee RN) History of Loss/Stillborn: No (05/11/2016 08:47:Tootie Lee RN) History of : No (05/11/2016 08:47:Tootie Lee RN) History of D (Rh) Sensitization: No (05/11/2016 08:47:Tootie Lee RN) History Recurrent Loss/Stillborn: No (05/11/2016 08:47:Tootie Lee RN) History Depression/PP Depression: No (05/11/2016 08:47:Tootie Lee RN) History of Uterine Anomaly/EVANGELIST: No (05/11/2016 08:47:Tootie Lee RN) History of Infertility: No (05/11/2016 08:47:Tootie Lee RN) History of ART Treatment: No (05/11/2016 08:47:Tootie Lee RN) History of EVANGELIST: No (05/11/2016 08:47:Tootie Lee RN) MEDICAL HISTORY Med Hx Diabetes: No (05/11/2016 08:47:Tootie Lee RN) Med Hx Hypertension: No (05/11/2016 08:47:Tootie Lee RN) Med Hx Heart Disease: No (05/11/2016 08:47:Tootie Lee RN) Med Hx Autoimmune Disorder: No (05/11/2016 08:47:Tootie Lee RN) Med Hx Kidney Disease/UTI: No (05/11/2016 08:47:Tootie Lee RN) Med Hx Neurologic/Epilepsy: No (05/11/2016 08:47:Tootie Lee RN) Med Hx Psychiatric Disorders: No (05/11/2016 08:47:Tootie Lee RN) Med Hx Hepatitis/Liver Disease: No (05/11/2016 08:47:Tootie Lee RN) Med Hx Varicosities/Phlebitis: No (05/11/2016 08:47:Tootie Lee RN) Med Hx Thyroid Dysfunction: No (05/11/2016 08:47:Tootie Lee RN) Med Hx Trauma/Violence: No (05/11/2016 08:47:Tootie Lee RN) Med Hx Blood Transfusion: No (05/11/2016 08:47:Tootie Lee RN) Med Hx Pulmonary (Asthma,TB): No (05/11/2016 08:47:Tootie Lee RN) Med Hx Breast: No (05/11/2016 08:47:Tootie Lee RN) Med Hx VENEER PRODUCTION MACHINE OPERATOR Surgery: No (05/11/2016 08:47:Tootie Lee RN) Med Hx Hospitalization/Surgery: Yes (05/11/2016 08:47:Tootie Lee RN) Med Hx Anesthetic Complications: No (05/11/2016 08:47:Tootie Lee RN) Med Hx Abnormal Pap Smear: Yes (05/11/2016 08:47:Tootie Lee RN) Other Medical Diseases: Yes (05/11/2016 08:47:Tootie Lee RN) Med Hx Significant Family Hx: No (05/11/2016 08:47:Tootie Lee RN) Details of Med/Surg Hx: CHILDBIRTH ABN PAP THIS - REPEAT PP ANEMIA THIS WITH IRON INFUSION (05/11/2016 08:47:Tootie Lee RN) INFECTIOUS HISTORY Inf Hx Gonorrhea: No (05/11/2016 08:47:Tootie Lee RN) Inf Hx Chlamydia: No (05/11/2016 08:47:Tootie Lee RN) Inf Hx Syphilis: No (05/11/2016 08:47:Tootie Lee RN) Inf Hx HIV/AIDS: No (05/11/2016 08:47:Tootie Lee RN) Inf Hx Human Papilloma Virus: No (05/11/2016 08:47:Tootie Lee RN) Inf Hx Pt/Partner Genital Herpes: No (05/11/2016 08:47:Tootie Lee RN) Inf Hx Tuberculosis/Exposure: No (05/11/2016 08:47:Tootie Lee RN) Inf Hx Hepatitis B,C: No (05/11/2016 08:47:Tootie Lee RN) Inf Hx Rash or Viral Illness: No (05/11/2016 08:47:Tootie Lee RN) GENETIC HISTORY Gen Hx Age >=35 at SLOAN: No (05/11/2016 08:47:Tootie Lee RN) Gen Hx Thalassemia: No (05/11/2016 08:47:Tootie Lee RN) Gen Hx Congenital Heart Defect: No (05/11/2016 08:47:Tootie Lee RN) Gen Hx Neural Tube Defect: No (05/11/2016 08:47:Tootie Lee RN) Gen Hx Down's Syndrome: No (05/11/2016 08:47:Tootie Lee RN) Gen Hx Terry-Sachs: No (05/11/2016 08:47:Tootie Lee RN) Gen Hx Zi: No (05/11/2016 08:47:Tootie Lee RN) Gen Hx Familial Dysautonomia: No (05/11/2016 08:47:Tootie Lee RN) Gen Hx Sickle Cell Disease/Trait: No (05/11/2016 08:47:Tootie Lee RN) Gen Hx Hemophilia/Blood Disorder: No (05/11/2016 08:47:Tootie Lee RN) Gen Hx Muscular Dystrophy: No (05/11/2016 08:47:Tootie Lee RN) Gen Hx Cystic Fibrosis: No (05/11/2016 08:47:Tootie Lee RN) Gen Hx Huntingtons Chorea: No (05/11/2016 08:47:Tootie Lee RN) Gen Hx Mental Retardation/Autism: No (05/11/2016 08:47:Tootie Lee RN) Gen Hx Tested for Fragile X: No (05/11/2016 08:47:Tootie Lee RN) Gen Hx Other Inher/Chromosomal: No (05/11/2016 08:47:Tootie Lee RN) Gen Hx Maternal Metabolic DO: No (05/11/2016 08:47:Tootie Lee RN) Gen Hx Pt Father or FOB Defect: No (05/11/2016 08:47:Tootie Lee RN) Gen Hx Other Genetic History: No (05/11/2016 08:47:Tootie Lee RN) Gen Hx Drugs/Meds since LMP: No (05/11/2016 08:47:Tootie Lee RN)
--- NOTE | 2016-05-19 04:45 | Antepartum Discharge Summary ---
Antepartum DC Datetime Report Generated by CPN: 05/19/2016 04:45 DIET/ACTIVITY/RESTRICTIONS Diet: Regular (05/18/2016 18:12:Maricruz Marlatt, RN) Activity: Normal Activity (05/18/2016 18:12:Maricruz Marlatt, RN) TEACHING/INSTRUCTIONS/REFERRALS Instructions Given To: patient (05/18/2016 18:12:Maricruz Gayathrilatt, RN) Instructions Understood: Patient Verbalized Understanding; Support Person Verbalized Understanding (05/18/2016 18:12:Maricruz Garcia RN) Referrals: None (05/18/2016 18:12:Maricruz Garcia RN) Educational Materials- Other: Labor care notes (05/18/2016 18:12:Maricruz Garcia RN) DISCHARGE INFORMATION Discharged AMA: No (05/18/2016 18:12:Maricruz Garcia RN) Discharge Date/Time: 05/18/2016 18:10 (05/18/2016 18:12:Maricruz Garcia RN) Discharged To: Home (05/18/2016 18:12:Maricruz Garcia RN) Discharge Provider Name: Dr. Shaver (05/18/2016 18:12:Maricruz Garcia RN) Accompanied By: mother (05/18/2016 18:12:Maricruz Garcia RN) Discharge Method: Ambulatory (05/18/2016 18:12:Maricruz Garcia RN) Condition: Stable (05/18/2016 18:12:Maricruz Garcia RN) FOLLOW UP INFORMATION Follow Up With: [facility] (05/18/2016 18:12:Maricruz Garcia RN) Follow Up On: As Scheduled (05/18/2016 18:12:Maricruz Garcia RN) Follow Up Phone Number: [facility] - (05/18/2016 18:12:Maricruz Garcia RN) Comments: Instructed patient to return to hospital for contractions every 5 minutes for an hour or stronger than her current cramps, bleeding like a period, or if she thinks her water breaks. Instructed patient to return to hospital at 1600 tomorrow, 05-19-16, for her second betamethasone shot. Patient verbalized understanding. (05/18/2016 18:12:Maricruz Garcia RN)
--- NOTE | 2016-05-19 04:45 | L&D Discharge Summary ---
OB Discharge Summary Datetime Report Generated by CPN: 05/19/2016 04:45 DISCHARGE DIAGNOSIS Diagnosis/Symptoms: False Labor; Labor Diagnoses/Symptoms Other: iup 32.1 contractions not in labor Gestation: 33.1 Number of Babies in Womb: 1 Parity: 3 DIET/ACTIVITY/RESTRICTIONS Diet: Regular Activity: Normal Activity Activity Restrictions: No Sexual Activity TEACHING/INSTRUCTIONS/REFERRALS Instructions Given To: patient Instructions Understood: Patient Verbalized Understanding; Support Person Verbalized Understanding Referrals: None Educational Materials- Other: Labor care notes DISCHARGE INFORMATION Discharged AMA: No Discharge Date/Time: 05/18/2016 18:10 Discharged To: Home Discharge Provider Name: Dr. Shaver Accompanied By: mother Discharge Method: Ambulatory Condition: Stable FOLLOW UP INFORMATION Follow Up With: [facility] Follow Up On: As Scheduled Follow Up Phone Number: [facility] - Comments: Instructed patient to return to hospital for contractions every 5 minutes for an hour or stronger than her current cramps, bleeding like a period, or if she thinks her water breaks. Instructed patient to return to hospital at 1600 tomorrow, 05-19-16, for her second betamethasone shot. Patient verbalized understanding. GENERAL INSTR-CALL PROVIDER IF: Contractions: Contractions or cramps become more frequent than 8 in one hour or 4 in 20 minutes Period Like Cramps: Period-like cramps or low dull backache that may come and go Cramps/Diarrhea: Abdominal cramps that may be accompanied by diarrhea Gush of Fluid/Blood: Gush of fluid or blood from your vagina (it is normal to have spotting after vaginal exam or intercourse) Vaginal Discharge: Change in the type or amount of vaginal discharge Decreased Movement: Your baby is not moving as much as usual- 4 movements in 1 hour after drinking and resting on side
--- NOTE | 2016-05-19 04:45 | L&D Current Admission ---
Current Admit Datetime Report Generated by CPN: 05/19/2016 04:45 ADMISSION INFORMATION Chief Complaint: Contractions; Uterine Cramping (05/18/2016 15:55:Maricruz Garcia RN) Chief Complaint: Contractions; Uterine Cramping (05/11/2016 09:15:Tootie Lee RN)
== END 2016-05-18 18:10 | disposition home or self-care (01) ==
LOC: LC 15:40
PROVIDERS: ATTEND Obstetrics & Gynecology
PROC: 4A1HXCZ Monitoring of Products of Conception, Cardiac Rate, External Approach (ICD-10-PCS; principal; 2016-05-18)
DX: O47.03 False labor before 37 completed weeks of gestation, third trimester (principal); Z3A.32 32 weeks gestation of pregnancy
CPT/HCPCS: 59025; 87077; 81001; 87081; 80307; 87491; 87591; J0702

== ENCOUNTER 2016-05-19 10:07 | Outpatient (CLI) | payer MEDICAID ==
[2016-05-19] MEDS ORDERED: BETAMET ACET/BETAMET NA INJ 6 MG/1 ML ONE (10:20)
[2016-05-19] MEDS ORDERED: BETAMET ACET/BETAMET NA INJ 6 MG/1 ML IM PRN (10:23)
== END 2016-05-19 10:30 | disposition home or self-care (01) ==
LOC: LC 10:07
PROVIDERS: ATTEND Obstetrics & Gynecology
PROC: 4A1HXCZ Monitoring of Products of Conception, Cardiac Rate, External Approach (ICD-10-PCS; principal; 2016-05-19)
DX: O47.03 False labor before 37 completed weeks of gestation, third trimester (principal); Z3A.33 33 weeks gestation of pregnancy
CPT/HCPCS: 96372; J0702

== ENCOUNTER 2016-05-22 08:00 | Outpatient (CLI) | payer MEDICAID ==
[2016-05-22 08:44] LABS: AMNISURE (ROM) NEGATIVE (NEGATIVE)
[2016-05-22 08:47] LABS: APPEARANCE,URINE CLEAR; BILIRUBIN,URINE NEGATIVE (NEGATIVE); GLUCOSE, URINE NEGATIVE (NEGATIVE); KETONES,URINE NEGATIVE (NEGATIVE); LEUKOCYTE ESTERASE,URINE TRACE (NEGATIVE); NITRITE,URINE NEGATIVE (NEGATIVE); PROTEIN,URINE NEGATIVE (NEGATIVE); URINE SPECIFIC GRAVITY 1.005; UROBILINOGEN,URINE NEGATIVE mg/dL (<2.0)
[2016-05-22 08:57] LABS: URINE BARBITURATES SCREEN NEGATIVE; URINE METHADONE SCREEN NEGATIVE; URINE PHENCYCLIDINE SCREEN NEGATIVE
--- NOTE | 2016-05-22 09:55 | Non Stress Test Report ---
Non Stress Test Datetime Report Generated by CPN: 05/22/2016 09:55 DEMOGRAPHIC EGA NST: 33.5 INDICATION Indication for Study: Ordered by Provider; Other MONITORING Monitor Explained: Monitor Explained; Test Explained; Patient Verbalized Understanding Time on Monitor: 05/22/2016 08:16 Time off Monitor: 05/22/2016 09:39 NST Duration: 83 NST INTERVENTIONS NST Interventions: PO Hydration; IV Fluids; Reposition Patient Physician Notified NST: Aubrie Isaacs, CNM BABY A Movement : Present Contraction Frequency : irregular FHR Baseline : 150 Accelerations : 15X15 Decelerations : None Variability : Moderate 6-25bpm NST Review: Meets Criteria for Reactive NST NST Review and Verified By : Brooklyn Henriquez RNC NST Results: Reactive NST REPORT Report Trigger: Send Report
== END 2016-05-22 09:56 | disposition home or self-care (01) ==
LOC: LC 08:00
PROVIDERS: ATTEND Obstetrics & Gynecology
PROC: 4A1HXCZ Monitoring of Products of Conception, Cardiac Rate, External Approach (ICD-10-PCS; principal; 2016-05-22)
DX: O47.03 False labor before 37 completed weeks of gestation, third trimester (principal); Z3A.33 33 weeks gestation of pregnancy
CPT/HCPCS: 59025; 80307; 81001; 84112

== ENCOUNTER 2016-05-30 18:02 | Outpatient (CLI) | payer MEDICAID ==
[2016-05-30] MEDS ORDERED: BUTALB/ACETAMINOPHEN/CAFFEINE 1 TAB EACH ONE (18:46)
[2016-05-30 18:48] LABS: APPEARANCE,URINE SLIGHTLY-CLOUDY; BILIRUBIN,URINE NEGATIVE (NEGATIVE); GLUCOSE, URINE NEGATIVE (NEGATIVE); KETONES,URINE NEGATIVE (NEGATIVE); LEUKOCYTE ESTERASE,URINE TRACE (NEGATIVE); NITRITE,URINE NEGATIVE (NEGATIVE); PROTEIN,URINE NEGATIVE (NEGATIVE); URINE SPECIFIC GRAVITY 1.005; UROBILINOGEN,URINE NEGATIVE mg/dL (<2.0)
[2016-05-30 19:04] LABS: URINE BARBITURATES SCREEN NEGATIVE; URINE METHADONE SCREEN NEGATIVE; URINE OPIATES LOW NEGATIVE; URINE PHENCYCLIDINE SCREEN NEGATIVE
--- NOTE | 2016-05-30 19:52 | Non Stress Test Report ---
Non Stress Test Datetime Report Generated by CPN: 05/30/2016 19:52 DEMOGRAPHIC Test Number: 4 EGA NST: 34.6 INDICATION Indication for Study: Other Indication for Study (NST) Other: LC MONITORING Monitor Explained: Monitor Explained; Test Explained; Patient Verbalized Understanding; Other Time on Monitor: 05/30/2016 18:19 Time off Monitor: 05/30/2016 19:29 NST Duration: 70 NST INTERVENTIONS NST Interventions: PO Hydration BABY A: [id number] BABY A Movement : Present Contraction Frequency : 0 FHR Baseline : 155 Accelerations : 15X15 Decelerations : None Variability : Moderate 6-25bpm NST Review: Meets Criteria for Reactive NST NST Review and Verified By : C Fore RN NST Results: Reactive NST REPORT Report Trigger: Send Report
== END 2016-05-30 19:36 | disposition home or self-care (01) ==
LOC: LC 18:02
PROVIDERS: ATTEND Obstetrics & Gynecology
PROC: 4A1HXCZ Monitoring of Products of Conception, Cardiac Rate, External Approach (ICD-10-PCS; principal; 2016-05-30)
DX: O47.03 False labor before 37 completed weeks of gestation, third trimester (principal); Z3A.34 34 weeks gestation of pregnancy
CPT/HCPCS: 59025; 81001; 80307; J3490

== ENCOUNTER 2016-06-01 10:53 | Outpatient (CLI) | payer MEDICAID ==
[2016-06-01 11:32] LABS: APPEARANCE,URINE SLIGHTLY-CLOUDY; BILIRUBIN,URINE NEGATIVE (NEGATIVE); GLUCOSE, URINE NEGATIVE (NEGATIVE); KETONES,URINE NEGATIVE (NEGATIVE); LEUKOCYTE ESTERASE,URINE NEGATIVE (NEGATIVE); NITRITE,URINE NEGATIVE (NEGATIVE); PROTEIN,URINE NEGATIVE (NEGATIVE); URINE SPECIFIC GRAVITY 1.011; UROBILINOGEN,URINE NEGATIVE mg/dL (<2.0)
--- NOTE | 2016-06-01 11:36 | Non Stress Test Report ---
Non Stress Test Datetime Report Generated by CPN: 06/01/2016 11:36 DEMOGRAPHIC EGA NST: 35.1 INDICATION Indication for Study: Ordered by Provider Indication for Study (NST) Other: sent from the office MONITORING Monitor Explained: Monitor Explained; Test Explained; Patient Verbalized Understanding Time on Monitor: 06/01/2016 11:07 Time off Monitor: 06/01/2016 11:33 NST Duration: 26 NST INTERVENTIONS NST Interventions: PO Hydration; Reposition Patient Physician Notified NST: ADKINS BABY A Movement : Present Contraction Frequency : 0 FHR Baseline : 145 Accelerations : 15X15 Decelerations : None Variability : Moderate 6-25bpm NST Review: Meets Criteria for Reactive NST NST Review and Verified By : S Carolee RN NST Results: Reactive NST REPORT Report Trigger: Send Report
--- NOTE | 2016-06-01 12:01 | L&D Flow Sheet ---
LD Flowsheet Datetime Report Generated by CPN: 06/01/2016 12:00 Datetime: 06/01/2016 11:39 NBP Sys/Margarita/Mean (mmHg): 102 (QS system process) : 53 (QS system process) : 72 (QS system process) Pulse: 99 (QS system process) LaborFlag: OB Triage (QS system process) Datetime: 06/01/2016 11:30 Monitor Mode: External; Palpation (Justin Zarco RN) Frequency (min): none/ pt denies (Justin Carolee, RN) Quality: Mild (Justin Zarco RN) Duration Criteria: Less than Two 120 Second Contractions (Justin Zarco RN) Pattern: Normal: <= 5 Contractions in 10 Minutes (Justin Zarco RN) Resting Tone (Palpate): Relaxed (Justin Zarco RN) Monitor Mode: External US (Justin Zarco RN) FHR Baseline Rate : 145 (Justin Zarco RN) Variability: Moderate 6-25 bpm (Justin Zarco RN) Accelerations: 15X15 (Justin Zarco RN) Decelerations: None (Justin Zarco RN) Pain Presence: None/Denies (Justin Zarco RN) Communication: RN at Bedside; RN Reviewed Strip (Justin Zarco RN) LaborFlag: OB Triage (QS system process) Datetime: 06/01/2016 11:27 Provider Reviewed Strip: Yes (Justin Zarco RN) Strip Reviewed by: Germaine Schulz CNM (Justin Zarco RN) Provider Notified (Name): Germaine Schulz CNM (Justin Zarco, JAIRON) Notification Reason: Status Update; Status; Labor Status; Uterine Activity (Justin Zarco RN) Communication Comments: Germaine Schulz CNM notified of pt complaint of ctx, reactive NST, awaiting urine results, pt PO hydrating x1 pitcher of water without difficulty. Pt denies contractions at hospital. Denies pain. Discharge orders received. (Justin Zarco RN) Datetime: 06/01/2016 11:25 Monitor Interventions for UA: [place] Adjusted (Justin Zarco, JAIRON) Datetime: 06/01/2016 11:15 Pain Presence: None/Denies (Justin Zarco RN) Vaginal Bleeding: None (Justin Zarco RN) Level of Consciousness: Fully Conscious (Justin Zarco RN) DTR's/Clonus: DTRs 2+; No Clonus (Justin Zarco RN) Headache: Denies (Justin Zarco RN) Breath Sounds, Left: Clear and Equal (Justin Zarco RN) Breath Sounds, Right: Clear and Equal (Justin Zarco RN) Nausea/Vomiting: Denies (Justin Zarco RN) RUQ Epigastric Pain: Denies (Justin Zarco RN) Comfort Measures: Breathing/Relaxation (Justin Zarco RN) I/O Interventions: Clear Liquids Given; Up to BR (Justin Zarco RN) Instructional Method: Verbal; Patient Instructed; Family/Support Person Instructed; Verbalized Understanding (Justin Zarco RN) Plan of Care: Plan of Care Discussed (Justin Zarco RN) Unit Routine: [place] to Room; Call [place]; Bed; Visiting Policy; Waiting Areas; Security; Phone/Cell Phone Use; Unit Personnel; Handwashing; Flu/Illness Precautions; Monitoring; Safety/Fall Risk Prevention; Bathroom Privileges (Justin Zarco RN) Pain Management: Pain Scale/Goals; Comfort Measures (Justin Zarco RN) LaborFlag: OB Triage (QS system process) Datetime: 06/01/2016 11:08 NBP Sys/Margarita/Mean (mmHg): 98 (QS system process) : 52 (QS system process) : 70 (QS system process) Pulse: 104 (QS system process) LaborFlag: OB Triage (QS system process)
[2016-06-01 12:05] LABS: URINE METHADONE SCREEN NEGATIVE; URINE OPIATES LOW NEGATIVE; URINE PHENCYCLIDINE SCREEN NEGATIVE
[2016-06-01 12:09] LABS: URINE BARBITURATES SCREEN UNCONFIRMED POSITIVE
== END 2016-06-01 12:11 | disposition home or self-care (01) ==
LOC: LC 10:53
PROVIDERS: ATTEND Obstetrics & Gynecology
PROC: 4A1HXCZ Monitoring of Products of Conception, Cardiac Rate, External Approach (ICD-10-PCS; principal; 2016-06-01)
DX: O47.03 False labor before 37 completed weeks of gestation, third trimester (principal); Z3A.35 35 weeks gestation of pregnancy
CPT/HCPCS: 59025; 80307; 81001

== ENCOUNTER 2016-06-19 17:34 | Outpatient (CLI) | payer MEDICAID ==
--- NOTE | 2016-06-19 18:00 | L&D Flow Sheet ---
LD Flowsheet Datetime Report Generated by CPN: 06/19/2016 18:00 Datetime: 06/19/2016 17:55 Vital Signs NBP Sys/Margarita/Mean (mmHg): 122 (QS system process) : 72 (QS system process) : 91 (QS system process) Pulse: 90 (QS system process) Respirations: 16 (Francoise Bellavance, RNC) Uterine Activity Monitor Mode: External (Francoise Bellavance, RNC) Monitor Interventions for UA: [place] Adjusted (Francoise Bellavance, RNC) Resting Tone (Palpate): Relaxed (Francoise Bellavance, RNC) Assessment A Monitor Mode: External US (Francoise Bellavance, RNC) Monitor Interventions for FHR: Ultrasound Adjusted (Francoise Bellavance, RNC) FHR Baseline Rate : 145 (Francoise Bellavance, RNC) Variability: Moderate 6-25 bpm (Francoise Bellavance, RNC) Accelerations: 15X15 (Francoise Bellavance, RNC) Decelerations: None (Francoise Bellavance, RNC) Pain Pain Assessment Comments: crampy and pressure (Francoise Bellavance, RNC) Vaginal Exam Dilatation (cm): 3.0 (Francoise Bellavance, RNC) Effacement (%): 50 (Francoise Bellavance, RNC) Station: -2 (Francoise Bellavance, RNC) Exam by: D Bellavance RNC (Francoise Bellavance, RNC) Patient Care Patient Position/Activity: Semi-Fowlers (Francoise Bellavance, RNC) Comfort Measures: Breathing/Relaxation (Francoise Bellavance, RNC) Communication LaborFlag: OB Triage (QS system process)
[2016-06-19 18:03] LABS: APPEARANCE,URINE CLEAR; BILIRUBIN,URINE NEGATIVE (NEGATIVE); GLUCOSE, URINE NEGATIVE (NEGATIVE); KETONES,URINE NEGATIVE (NEGATIVE); LEUKOCYTE ESTERASE,URINE NEGATIVE (NEGATIVE); NITRITE,URINE NEGATIVE (NEGATIVE); PROTEIN,URINE NEGATIVE (NEGATIVE); URINE SPECIFIC GRAVITY 1.001; UROBILINOGEN,URINE NEGATIVE mg/dL (<2.0)
[2016-06-19 18:44] LABS: URINE BARBITURATES SCREEN NEGATIVE; URINE METHADONE SCREEN NEGATIVE; URINE OPIATES LOW NEGATIVE; URINE PHENCYCLIDINE SCREEN NEGATIVE
== END 2016-06-19 18:56 | disposition home or self-care (01) ==
LOC: LC 17:34
PROVIDERS: ATTEND Student in an Organized Health Care Education/Training Program
PROC: 4A1HXCZ Monitoring of Products of Conception, Cardiac Rate, External Approach (ICD-10-PCS; principal; 2016-06-19)
DX: O47.1 False labor at or after 37 completed weeks of gestation (principal); Z3A.37 37 weeks gestation of pregnancy
CPT/HCPCS: 59025; 80307; 81005

== ENCOUNTER 2016-06-28 20:45 | Outpatient (CLI) | payer MEDICAID ==
--- NOTE | 2016-06-28 20:49 | Non Stress Test Report ---
Non Stress Test Datetime Report Generated by CPN: 06/28/2016 20:49 DEMOGRAPHIC EGA NST: 37.5 INDICATION Indication for Study: Ordered by Provider MONITORING Monitor Explained: Monitor Explained; Test Explained; Patient Verbalized Understanding Time on Monitor: 06/19/2016 17:54 Time off Monitor: 06/19/2016 18:46 NST Duration: 52 NST INTERVENTIONS NST Interventions: PO Hydration; Reposition Patient Physician Notified NST: Dr. Reese BABY A: [id number] BABY A Movement : Present Contraction Frequency : 2-9 FHR Baseline : 150 Accelerations : 15X15 Decelerations : None Variability : Minimal - Undetectable to <=5bpm NST Review: Meets Criteria for Reactive NST NST Review and Verified By : Jimmy Jerome RN NST Results: Reactive NST REPORT Report Trigger: Send Report
[2016-06-28 21:12] LABS: AMNISURE (ROM) NEGATIVE (NEGATIVE); APPEARANCE,URINE CLEAR; BILIRUBIN,URINE NEGATIVE (NEGATIVE); GLUCOSE, URINE NEGATIVE (NEGATIVE); KETONES,URINE NEGATIVE (NEGATIVE); LEUKOCYTE ESTERASE,URINE SMALL (NEGATIVE); NITRITE,URINE NEGATIVE (NEGATIVE); PROTEIN,URINE NEGATIVE (NEGATIVE); URINE SPECIFIC GRAVITY 1.005; UROBILINOGEN,URINE NEGATIVE mg/dL (<2.0)
[2016-06-28 21:29] LABS: URINE BARBITURATES SCREEN NEGATIVE; URINE METHADONE SCREEN NEGATIVE; URINE OPIATES LOW NEGATIVE; URINE PHENCYCLIDINE SCREEN NEGATIVE
--- NOTE | 2016-06-28 22:00 | L&D Flow Sheet ---
LD Flowsheet Datetime Report Generated by CPN: 06/28/2016 22:00 Datetime: 06/28/2016 21:39 Patient Care Patient Care Comments: Offered Patient to walk the floor; patient stated she wanted to just stay in the bed for the time being (Radha Field, RN) Datetime: 06/28/2016 21:34 Vital Signs NBP Sys/Margarita/Mean (mmHg): 104 (QS system process) : 51 (QS system process) : 73 (QS system process) Pulse: 86 (QS system process) Communication LaborFlag: OB Triage (QS system process) Datetime: 06/28/2016 21:30 Uterine Activity Monitor Mode: External; [facility] Frequency (min): 7-11.5 (Radha Field, RN) Quality: Moderate (Radha Field, RN) Duration (sec): 90-110 ([facility], RN) Resting Tone (Palpate): Relaxed ([facility], RN) Assessment A Monitor Mode: External US (Radha Field, RN) FHR Baseline Rate : 135 (Radha Field, RN) Variability: Moderate 6-25 bpm (Radha Field, RN) Accelerations: 15X15 (Radha Field, RN) Decelerations: None (Radha Field, RN) Datetime: 06/28/2016 21:06 Frequency (min): q5-8 minutes apart ([facility]) Pain Pain Scale: 3 ([facility]) Pain Presence: Intermittent ([facility]) Pain Type: Cramping; Contraction ([facility]) Pain Location: Abdomen; Perineum ([facility]) Pain Goal: 0 ([facility]) Pain Relief Measures: Comfort Measures ([facility]) Pain Coping: Talking Through Contractions; Breathing Through Contractions ([facility]) Vaginal Exam Dilatation (cm): 3.0 ([facility]) Effacement (%): 70 (Radha Velez RN) Station: -1 (Radha Velez RN) Exam by: JAIRON Kam (Radha Velez RN) Vaginal Bleeding: None (Radha Velez RN) Maternal Assessment Level of Consciousness: Fully Conscious (Radha Velez, RN) DTR's/Clonus: DTRs 2+; No Clonus (Radha Velez, RN) Headache: Denies (Radha Velez, RN) Breath Sounds, Left: Clear and Equal (Radha Velez, RN) Breath Sounds, Right: Clear and Equal (Radha Velez, RN) Nausea/Vomiting: Denies (Radha Velez, RN) RUQ Epigastric Pain: Denies (Radha Velez, RN) Teaching Instructional Method: Verbal; Patient Instructed; Family/Support Person Instructed; Verbalized Understanding (Radha Velez RN) Plan of Care: Plan of Care Discussed (Radha Velez RN) Unit Routine: [place] to Room; Call [facility]; Bed; Visiting Policy; Waiting Areas; Phone/Cell Phone Use; Unit Personnel; Handwashing; Flu/Illness Precautions; Monitoring; Safety/Fall Risk Prevention; Bathroom Privileges (Radha Field, RN) Communication LaborFlag: OB Triage (QS system process) Datetime: 06/28/2016 21:03 Vital Signs NBP Sys/Margarita/Mean (mmHg): 97 (QS system process) : 55 (QS system process) : 70 (QS system process) Pulse: 86 (QS system process) Communication LaborFlag: OB Triage (QS system process)
[2016-06-28] MEDS ORDERED: HYDROXYZINE PAMOATE 50 MG CAPSULE ONE (22:24)
[2016-06-28] MEDS ORDERED: HYDROXYZINE PAMOATE 50 MG CAPSULE PO ONE (22:30)
--- NOTE | 2016-06-28 22:40 | Non Stress Test Report ---
Non Stress Test Datetime Report Generated by CPN: 06/28/2016 22:40 DEMOGRAPHIC EGA NST: 39.0 INDICATION Indication for Study: Ordered by Provider Indication for Study (NST) Other: LC MONITORING Monitor Explained: Monitor Explained; Test Explained; Patient Verbalized Understanding Time on Monitor: 06/28/2016 21:01 Time off Monitor: 06/28/2016 22:23 NST Duration: 82 NST INTERVENTIONS NST Interventions: PO Hydration; Reposition Patient Physician Notified NST: Dr. Knight BABY A Movement : Present Contraction Frequency : 6-11.5 FHR Baseline : 135 Accelerations : 15X15 Decelerations : None Variability : Moderate 6-25bpm NST Review: Meets Criteria for Reactive NST NST Review and Verified By : JENNIFER Gill NST Results: Reactive NST REPORT Report Trigger: Send Report
== END 2016-06-28 22:35 | disposition home or self-care (01) ==
LOC: LC 20:45
PROVIDERS: ATTEND Obstetrics & Gynecology
PROC: 4A1HXCZ Monitoring of Products of Conception, Cardiac Rate, External Approach (ICD-10-PCS; principal; 2016-06-28)
DX: O47.1 False labor at or after 37 completed weeks of gestation (principal); Z3A.39 39 weeks gestation of pregnancy
CPT/HCPCS: 59025; 84112; 81005; 80307; J3490

== ENCOUNTER 2016-06-30 11:43 | Inpatient (IN) | payer MEDICAID ==
[2016-06-30 12:29] LABS: APPEARANCE,URINE SLIGHTLY-CLOUDY; BILIRUBIN,URINE NEGATIVE (NEGATIVE); GLUCOSE, URINE NEGATIVE (NEGATIVE); KETONES,URINE NEGATIVE (NEGATIVE); LEUKOCYTE ESTERASE,URINE MODERATE (NEGATIVE); NITRITE,URINE NEGATIVE (NEGATIVE); PROTEIN,URINE NEGATIVE (NEGATIVE); URINE SPECIFIC GRAVITY 1.006; UROBILINOGEN,URINE NEGATIVE mg/dL (<2.0)
[2016-06-30 12:36] LABS: AMNISURE (ROM) NEGATIVE (NEGATIVE)
[2016-06-30 12:57] LABS: URINE BARBITURATES SCREEN NEGATIVE; URINE METHADONE SCREEN NEGATIVE; URINE OPIATES LOW NEGATIVE; URINE PHENCYCLIDINE SCREEN NEGATIVE
[2016-06-30] MEDS ORDERED: PENICILLIN G-K 5 MILLION UNIT VIAL ONE (13:15)
[2016-06-30] MEDS ORDERED: OXYTOCIN/NORMAL SALINE 20 UNIT/1,000 ML RTUINJ ONE ×2 (13:15→17:39)
[2016-06-30] MEDS ORDERED: RINGERS SOLUTION,LACTATED 1,000 ML IV PRN (13:23)
[2016-06-30] MEDS ORDERED: OXYTOCIN/NORMAL SALINE 1,000 ML IV PRN ×2 (13:23→16:34)
[2016-06-30] MEDS ORDERED: PENICILLIN G POTASSIUM 5,000,000 UNIT in DEXTROSE 5%-WATER 100 ML IV ONE (13:23)
--- NOTE | 2016-06-30 14:00 | L&D Flow Sheet ---
LD Flowsheet Datetime Report Generated by CPN: 06/30/2016 14:00 Datetime: 06/30/2016 13:58 Temperature (F): 98.1 (Maricruz Garcia RN) Temperature (C): 36.7 (QS system process) LaborFlag: OB Triage (QS system process) Datetime: 06/30/2016 13:48 Pitocin (milliunit): Pitocin Started (milliunits) @ 2 (Maricruz Marlatt, RN) Antibiotics: Penicillin IV (Units) @ [id number] (Maricruz Garcia, RN) Datetime: 06/30/2016 13:40 I/O Interventions: Up to BR (Maricruz Trinhlatt, RN) Datetime: 06/30/2016 13:39 NBP Sys/Margarita/Mean (mmHg): 122 (QS system process) : 61 (QS system process) : 81 (QS system process) Pulse: 94 (QS system process) LaborFlag: OB Triage (QS system process) Datetime: 06/30/2016 13:07 I/O Interventions: Up to BR (Maricruz Garcia RN) Datetime: 06/30/2016 13:04 Frequency (min): 13-19 (Marcela Crow RN) Dilatation (cm): 3.0 (Marcela Crow RN) Effacement (%): 70 (Marcela Crow RN) Station: -2 (Marcela Crow RN) Exam by: Timur CROW RN (Marcela Crow RN) Membrane Status: Ruptured (Marcela Crow RN) Membranes Rupture Method: Spontaneous (Marcela Crow RN) Amniotic Fluid Color: Clear (Marcela Crow RN) Amniotic Fluid Amount: Moderate (Marcela Crow RN) Amniotic Fluid Odor: Normal (Marcela Crow RN) Vaginal Bleeding: None (Marcela Crow RN) Dilatation (cm): 3-4 cms (Marcela Crow RN) Effacement: 60-70_ effaced (Marcela Crow RN) Station: minus 2 (Marcela Crow RN) Consistency: Medium (Marcela Crow RN) Position: Anterior (Marcela Crow RN) Total [place]'s Score: 8 (QS system process) : 5-8 = Small percentage of induction failure (QS system process) Level of Consciousness: Fully Conscious (Marcela Crow RN) DTR's/Clonus: DTRs 2+ (Marcela Crow RN) Headache: Denies (Marcela Crow RN) Breath Sounds, Left: Clear and Equal (Marcela Crow RN) Breath Sounds, Right: Clear and Equal (Marcela Crow RN) Nausea/Vomiting: Denies (Marcela Crow RN) RUQ Epigastric Pain: Denies (Marcela Crow RN) Instructional Method: Demo; Verbal; Written; Patient Instructed; Family/Support Person Instructed (Marcela Crow RN) Plan of Care: Plan of Care Discussed; Labor (Marcela Crow RN) Unit Routine: [place] to Room; Call [facility]; Bed; Visiting Policy; Waiting Areas; Infant Security; Phone/Cell Phone Use (Marcela Crow RN) Labor/Induction: Labor Stages (Marcela Crow RN) Pain Management: Comfort Measures (Marcela Crow RN) Related: Common Discomforts of ; Maternal Physical Changes (Marcela Crow RN) Grief Support: Procedure/Plan (Marcela Crow RN) Datetime: 06/30/2016 12:40 NBP Sys/Margarita/Mean (mmHg): 103 (QS system process) : 59 (QS system process) : 77 (QS system process) Pulse: 85 (QS system process) LaborFlag: OB Triage (QS system process) Datetime: 06/30/2016 12:10 NBP Sys/Margarita/Mean (mmHg): 95 (QS system process) : 50 (QS system process) : 67 (QS system process) Pulse: 86 (QS system process) Respirations: 16 (Marcela Crow RN) Temperature (F): 98.3 (Marcela Crow RN) Temperature (C): 36.8 (QS system process) Temperature Route: Oral (Marcela Crow RN) Pain Scale: 3 (Marcela Crow RN) Pain Presence: Intermittent (Marcela Crow RN) Pain Type: Contraction (Marcela Crow RN) Pain Location: Abdomen (Marcela Crow RN) Pain Goal: 0 (Marcela Crow RN) Pain Relief Measures: Comfort Measures (Marcela Crow RN) Pain Coping: Talking Through Contractions; Breathing Through Contractions (Marcela Crow RN) LaborFlag: OB Triage (QS system process) Datetime: 06/30/2016 12:07 Communication Comments: AMNISURE COLLECTED PER RN (Marcela Crow RN)
[2016-06-30 14:14] LABS: ABSOLUTE LYMPHOCYTES (AUTO) 2.2 10^3/uL (0.5-4.7); ABSOLUTE MONOCYTES (AUTO) 0.7 10^3/uL (0.1-1.4); BASOPHILS % (AUTO) 0.3 % (0-2); EOSINOPHILS % (AUTO) 0.3 % (0-6); HEMATOCRIT 36.9 % (36.0-47.0); HEMOGLOBIN 12.4 g/dL (12.0-15.5); HGB HCT DIFFERENCE 0.3; MEAN CORPUSCULAR HEMOGLOBIN 28.1 pg (27.0-33.4); MEAN CORPUSCULAR HGB CONC 33.6 g/dL (32.0-36.0); MEAN CORPUSCULAR VOLUME 84 fl (80-97); MONOCYTES % (AUTO) 6.9 % (3-13); RED BLOOD COUNT 4.41 10^6/uL (3.72-5.28); RED CELL DISTRIBUTION WIDTH 18.6 % (11.5-14.0); SEGMENTED NEUTROPHILS % (AUTO) 70.5 % (42-78); WHITE BLOOD COUNT 9.9 10^3/uL (4.0-10.5)
--- NOTE | 2016-06-30 14:25 | L&D Progress Notes ---
PROGRESS NOTES Datetime Report Generated by CPN: 06/30/2016 14:25 PROGRESS NOTE Impression: Normal Progression of Labor; Reassuring Heart Rate Impression: Reassuring Heart Rate; Rupture of Membranes Procedures: Artificial ROM; Sterile Vag Exam Procedures: Artificial ROM Plan: Continue Present Management Plan: Continue Present Management Informed Consent Obtained: Vaginal Delivery Informed Consent Obtained: Vaginal Delivery Informed Consent Obtained- Other: may have epidural Vital Signs : Reviewed Vital Signs : Reviewed Comment: SVE AROM with FSE, clear fluid Pt may have epidural prn VAGINAL EXAM Dilatation: 4 Dilatation: 3 Effacement: 90 Effacement: 70 Station: -1 Station: -1 Contractions: 5-7 Contractions: 3-7 MEMBRANES Membranes: Ruptured Membranes: Ruptured Amniotic Fluid Color: Clear Amniotic Fluid Color: Clear FETUS A FHR - Baseline: 155 Monitoring: External US Variability: Moderate 6-25bpm Accelerations: 15X15 Decelerations: None FHR Category: Category I Presentation: Vertex SIGNATURE SIGNATURE: [id number] SIGNATURE: [id number] SIGNATURE: [id number] SIGNATURE: [id number] SIGNATURE: [id number] SIGNATURE: [id number] SIGNATURE: [id number] Assignment: Maya Shaver MD Signature: with User ID: [id number] : with User ID: [email or web address]
[2016-06-30] MEDS ORDERED: FENTANYL/BUPIVACAINE/NS/PF 200 MCG/100 ML RTUINJ EPI ONE (14:42)
[2016-06-30] MEDS ORDERED: EPHEDRINE SULFATE INJ 50 MG/1 ML AMPULE ONE (14:42)
[2016-06-30] MEDS ORDERED: BUPIVACAINE HCL 0.25 % INJ/PF (2.5 MG/1 ML) 30 ML VIAL ONE (14:43)
[2016-06-30] MEDS ORDERED: MISOPROSTOL 0.2 MG TABLET ONE (15:47)
[2016-06-30] MEDS ORDERED: LIDOCAINE 1% INJ-PF (10 MG/ML) 30 ML SDV ONE (15:47)
--- NOTE | 2016-06-30 16:01 | L&D Flow Sheet ---
LD Flowsheet Datetime Report Generated by CPN: 06/30/2016 16:00 Datetime: 06/30/2016 15:50 Communication Comments: H. Kam, CNM on unit, reviewed SVE. Continue current POC. (Kandis Vitrano, RN) Datetime: 06/30/2016 15:46 Comments: RN at bedside adjusting US (Kandis Vitrano, RN) Datetime: 06/30/2016 15:45 Patient Position/Activity: Right Lateral (Kandis Vitrano, RN) Datetime: 06/30/2016 15:43 NBP Sys/Margarita/Mean (mmHg): 111 (QS system process) : 53 (QS system process) : 76 (QS system process) Pulse: 86 (QS system process) Dilatation (cm): 9.5 (Kandis Vitrano, RN) Effacement (%): 100 (Kandis Hudson RN) Station: 1 (Kandis JAIRON Hudson) Exam by: Chirag Garcia RN (Kandis Vitrano, RN) LaborFlag: Labor (QS system process) Datetime: 06/30/2016 15:42 NBP Sys/Margarita/Mean (mmHg): 109 (QS system process) : 55 (QS system process) : 79 (QS system process) Pulse: 96 (QS system process) I/O Interventions: Magana Cath Inserted (Kandis Vitrano, RN) LaborFlag: Labor (QS system process) Datetime: 06/30/2016 15:41 NBP Sys/Margarita/Mean (mmHg): 121 (QS system process) : 58 (QS system process) : 83 (QS system process) Pulse: 100 (QS system process) LaborFlag: Labor (QS system process) Datetime: 06/30/2016 15:40 NBP Sys/Margarita/Mean (mmHg): 125 (QS system process) : 58 (QS system process) : 83 (QS system process) Pulse: 100 (QS system process) LaborFlag: Labor (QS system process) Datetime: 06/30/2016 15:39 Monitor Interventions for UA: [place] Adjusted (Kandis Vitrano, RN) Monitor Interventions for FHR: Ultrasound Adjusted (Kandis Javierano, RN) Patient Position/Activity: Right Tilt; Low Fowlers (Kandis Vitrano, RN) Datetime: 06/30/2016 15:35 NBP Sys/Margarita/Mean (mmHg): 121 (QS system process) : 68 (QS system process) : 88 (QS system process) Pulse: 105 (QS system process) Anesthesia Plans: Epidural (Kandis Vitrano, RN) Epidural Procedure: Loading Dose (Kandis Vitrano, RN) LaborFlag: Labor (QS system process) Datetime: 06/30/2016 15:34 NBP Sys/Margarita/Mean (mmHg): 118 (QS system process) : 67 (QS system process) : 85 (QS system process) Pulse: 98 (QS system process) Anesthesia Plans: Epidural (Kandis Vitrano, RN) Epidural Procedure: Cath Placed (Kandis Vitrano, RN) Epidural Procedure: Test Dose (Kandis Vitrano, RN) LaborFlag: Labor (QS system process) Datetime: 06/30/2016 15:32 Pulse: 104 (QS system process) SpO2 (%): 100 (QS system process) LaborFlag: Labor (QS system process) Datetime: 06/30/2016 15:27 Pulse: 114 (QS system process) SpO2 (%): 100 (QS system process) LaborFlag: Labor (QS system process) Datetime: 06/30/2016 15:25 Procedure Verify: Correct Patient Identity; Correct Side and Site are Marked; Accurate Procedure Consent Form; Agreement on Procedure to be Done; Correct Patient Position; Relevant Images and Results are Properly Labeled and Displayed; Addressed Need to Administer Antibiotics or Fluids for Irrigation; Safety Precautions Based on Patient History or Medication Use (Kadnis Hudson RN) Anesthesia Plans: Epidural (Kandis Hudson RN) Epidural Positioning: Sitting (Kandis Hudson RN) Anesthesia Comments: Dr. Jack at bedside for epidural (Kandis Hudson RN) Datetime: 06/30/2016 15:24 Pulse: 169 (QS system process) SpO2 (%): 86 (QS system process) LaborFlag: Labor (QS system process) Datetime: 06/30/2016 15:22 Pulse: 126 (QS system process) SpO2 (%): 86 (QS system process) LaborFlag: Labor (QS system process) Datetime: 06/30/2016 15:17 Pulse: 111 (QS system process) SpO2 (%): 100 (QS system process) LaborFlag: Labor (QS system process) Datetime: 06/30/2016 15:10 NBP Sys/Margarita/Mean (mmHg): 123 (QS system process) : 59 (QS system process) : 85 (QS system process) Pulse: 96 (QS system process) LaborFlag: Labor (QS system process) Datetime: 06/30/2016 15:08 Communication Comments: Dr. Chekan called to say he would be 10 more minutes (Maricruz Cobbtt, RN) Datetime: 06/30/2016 15:06 IV/Blood Work: New IV Bag Hung (Maricruz Marlatt, RN) Datetime: 06/30/2016 15:04 Pulse: 99 (QS system process) SpO2 (%): 100 (QS system process) Epidural Positioning: Sitting (Maricruz Gayathrilatt, RN) LaborFlag: Labor (QS system process) Datetime: 06/30/2016 15:00 Stage of : Labor (Tootie Lee RN) Respirations: 20 (Tootie Lee RN) Monitor Mode: External (Tootie Lee RN) Frequency (min): 2-5.5 (Tootie Lee RN) Quality: Moderate (Tootie Lee RN) Duration (sec): 55-120 (Tootie Lee, JAIRON) Resting Tone (Palpate): Relaxed (Tootie Lee RN) Monitor Mode: External US (Tootie Lee RN) FHR Baseline Rate : 145 (Tootie Lee RN) FHR Baseline Changes: No Baseline Change (Tootie Lee RN) Variability: Moderate 6-25 bpm (Tootie Lee RN) Accelerations: 15X15 (Tootie Lee, JAIRON) Decelerations: None (Tootie Lee, JAIRON) Pain Relief Measures: Comfort Measures (Tootie Lee RN) Pain Coping: Breathing Through Contractions (Tootie Lee, JAIRON) Pain Assessment Comments: Dr. Jack notified that patient is ready for her epidural. Received order to poisition patient for epidural and he would be up in 5-10 minutes (Maricruz Garcia RN) Pitocin (milliunit): Pitocin Remains (milliunits) @ 2 (Tootie Lee, JAIRON) Patient Position/Activity: Birthing Ball (Tootie Lee, JAIRON) Comfort Measures: Anesthesia Notified (Maricruz Garcia RN) Comfort Measures: Family Support (Tootie Lee RN) Communication: RN at Bedside; RN Reviewed Strip (Tootie Lee RN) LaborFlag: Labor (QS system process) Datetime: 06/30/2016 14:45 Stage of : Labor (Tootie Lee RN) Respirations: 20 (Tootie Lee RN) Monitor Mode: External (Tootie Lee RN) Frequency (min): 3-4.5 (Tootie Lee RN) Quality: Mild/Moderate (Tootie Lee RN) Duration (sec): 55-90 (Tootie Lee, JAIRON) Resting Tone (Palpate): Relaxed (Tootie Lee RN) Monitor Mode: External US (Tootie Lee RN) Monitor Interventions for FHR: Ultrasound Adjusted (Tootie Lee RN) FHR Baseline Rate : 145 (Tootie Lee RN) FHR Baseline Changes: No Baseline Change (Tootie Lee RN) Variability: Moderate 6-25 bpm (Tootie Lee, JAIRON) Accelerations: 15X15 (Tootie eLe, JAIRON) Decelerations: None (Tootie Lee, JAIRON) Pain Relief Measures: Comfort Measures (Tootie Lee RN) Pain Coping: Breathing Through Contractions (Tootie Lee, JAIRON) Pitocin (milliunit): Pitocin Remains (milliunits) @ 2 (Tootie Lee, JAIRON) Patient Position/Activity: Birthing Ball (Tootie Lee, JAIRON) Comfort Measures: Family Support (Tootie Lee, JAIRON) Communication: RN at Bedside; RN Reviewed Strip (Tootie Lee RN) LaborFlag: Labor (QS system process) Datetime: 06/30/2016 14:44 Comments: maternal HR (Maricruz Gayathrilatt, RN) Patient Care Comments: pt leaning forward (Maricruz Marlatt, RN) Communication: RN at Bedside (Maricruz Garcia, RN) Datetime: 06/30/2016 14:40 NBP Sys/Margarita/Mean (mmHg): 129 (QS system process) : 88 (QS system process) : 105 (QS system process) Pulse: 54 (QS system process) LaborFlag: Labor (QS system process) Datetime: 06/30/2016 14:30 Stage of : Labor (Tootie Lee, RN) Respirations: 20 (Tootie Lee, RN) Monitor Mode: External (Tootie Lee, RN) Monitor Interventions for UA: [place] Adjusted (Tootie eLe, RN) Frequency (min): 2-4 (Tootie Lee, RN) Quality: Mild/Moderate (Tootie Lee, RN) Duration (sec): 55-70 (Tootie Lee, RN) Resting Tone (Palpate): Relaxed (Tootie Lee, RN) Monitor Mode: External US (Tootie Lee, RN) Monitor Interventions for FHR: Ultrasound Adjusted (Tootie Lee RN) Monitor Interventions for FHR: Ultrasound Adjusted (Maricruz Garcia RN) FHR Baseline Rate : 145 (Tootie Lee, JAIRON) FHR Baseline Changes: No Baseline Change (Tootie Lee, JAIRON) Variability: Moderate 6-25 bpm (Tootie Lee, JAIRON) Accelerations: 15X15 (Tootie Lee, RN) Decelerations: None (Tootie Lee, JAIRON) Pain Relief Measures: Comfort Measures (Tootie Lee, JAIRON) Pain Coping: Breathing Through Contractions (Tootie Lee, RN) Pitocin (milliunit): Pitocin Remains (milliunits) @ 2 (Tootie Lee, RN) Patient Position/Activity: Birthing Ball (Tootie Lee, JAIRON) Comfort Measures: Family Support (Tootie Lee, RN) Communication: RN at Bedside; RN Reviewed Strip (Tootie Lee, JAIRON) LaborFlag: Labor (QS system process) Datetime: 06/30/2016 14:28 Monitor Interventions for FHR: Ultrasound Adjusted (Maricruz Marlatt, RN) Communication: RN at Bedside (Maricruz Marlatt, RN) Datetime: 06/30/2016 14:26 Patient Position/Activity: Birthing Ball (Maricruz Marlatt, RN) Datetime: 06/30/2016 14:22 I/O Interventions: Up to BR (Maricruz Marlatt, RN) Datetime: 06/30/2016 14:15 Stage of : Labor (Tootie Lee RN) Monitor Mode: External (Tootie Lee RN) Frequency (min): 3-5.5 (Tootie Lee RN) Quality: Mild/Moderate (Tootie Lee RN) Duration (sec): 40-180 (Tootie Lee, JAIRON) Resting Tone (Palpate): Relaxed (Tootie Lee, JAIRON) Monitor Mode: External US (Tootie Lee RN) FHR Baseline Rate : 145 (Tootie Lee RN) FHR Baseline Changes: No Baseline Change (Tootie Lee RN) Variability: Moderate 6-25 bpm (Tootie Lee RN) Accelerations: 15X15 (Tootie Lee RN) Decelerations: None (Tootie Lee RN) Pain Relief Measures: Comfort Measures (Tootie Lee RN) Pain Coping: Breathing Through Contractions (Tootie Lee, JAIRON) Membrane Status: Ruptured (Maricruz Garcia RN) Membranes Rupture Method: Artificial (Maricruz Garcia RN) Amniotic Fluid Color: Clear (Maricruz Garcia RN) Amniotic Fluid Amount: Moderate (Maricruz Garcia RN) Membrane Comments: forebag ruptured by Blayne Humphrey CNM (Maricruz Garcia, JAIRON) Pitocin (milliunit): Pitocin Remains (milliunits) @ 2 (Tootie Lee, JAIRON) Comfort Measures: Family Support (Tootie Lee, JAIRON) Communication: RN at Bedside; RN Reviewed Strip (Tootie Lee RN) Communication: Call/Page Placed to Provider (Maricruz Garcia RN) Provider Notified (Name): Blayne Humphrey CNM (Maricruz Garcia, JAIRON) Communication Comments: Received order that patient can have epidural whenever she wants (Maricruz Garcia RN) LaborFlag: Labor (QS system process) Datetime: 06/30/2016 14:11 NBP Sys/Margarita/Mean (mmHg): 104 (QS system process) : 62 (QS system process) : 76 (QS system process) Pulse: 111 (QS system process) LaborFlag: Labor (QS system process) Datetime: 06/30/2016 14:00 Stage of : Labor (Tootie Lee RN) Respirations: 20 (Tootie Lee RN) Monitor Mode: External (Tootie Lee RN) Monitor Interventions for UA: [place] Adjusted (Tootie Lee RN) Frequency (min): 4-7 (Tootie Lee RN) Quality: Mild/Moderate (Tootie Lee RN) Duration (sec): 40-70 (Tootie Lee RN) Resting Tone (Palpate): Relaxed (Tootie Lee RN) Monitor Mode: External US (Tootie Elif Roulund, RN) Monitor Interventions for FHR: Ultrasound Adjusted (Tootie Lee RN) FHR Baseline Rate : 150 (Tootie Lee RN) FHR Baseline Changes: No Baseline Change (Tootie Lee RN) Variability: Moderate 6-25 bpm (Tootie Lee RN) Accelerations: 15X15 (Tootie Lee, JAIRON) Decelerations: None (Tootie Lee RN) Pain Scale: 3 (Tootie Lee RN) Pain Presence: Intermittent (Tootie Lee RN) Pain Type: Contraction (Tootie Lee RN) Pain Location: Abdomen (Tootie Lee RN) Pain Relief Measures: Comfort Measures (Tootie Lee RN) Pain Coping: Breathing Through Contractions (Tootie Lee, JAIRON) Pitocin (milliunit): Pitocin Remains (milliunits) @ 2 (Tootie Lee, JAIRON) Patient Position/Activity: Right Lateral; Low Fowlers (Tootie Lee, JAIRON) Comfort Measures: Family Support (Tootie Lee RN) Communication: RN at Bedside; RN Reviewed Strip (Tootie Lee RN) LaborFlag: Labor (QS system process)
[2016-06-30] MEDS ORDERED: DIBUCAINE 1% OINTMENT 28 GM TP PRN (16:34)
[2016-06-30] MEDS ORDERED: ZOLPIDEM TARTRATE 5 MG TABLET PO PRN (16:34)
[2016-06-30] MEDS ORDERED: BENZOCAINE/MENTHOL AEROSOL SPRAY 56 ML TOP PRN (16:34)
[2016-06-30] MEDS ORDERED: DIPH/PERTUSS(ACELL)/TETANUS VAC/PF 0.5 ML SYR (>=10YO) IM PRN (16:34)
[2016-06-30] MEDS ORDERED: MEASLES,MUMPS&RUBELLA VACC/PF 0.5 ML VIAL SUBCUT PRN (16:34)
[2016-06-30] MEDS ORDERED: ACETAMINOPHEN WITH CODEINE #3 TABLET PO PRN (16:34)
[2016-06-30] MEDS ORDERED: PENICILLIN G POTASSIUM 2,500,000 UNIT in DEXTROSE 5%-WATER 50 ML IV SCH (17:23)
--- NOTE | 2016-06-30 18:01 | L&D Flow Sheet ---
LD Flowsheet Datetime Report Generated by CPN: 06/30/2016 18:00 Datetime: 06/30/2016 17:45 NBP Sys/Margarita/Mean (mmHg): 116 (QS system process) : 68 (QS system process) : 86 (QS system process) Pulse: 105 (QS system process) Datetime: 06/30/2016 17:44 Medication Comments: 2nd bag of Pitocin 20units/1000ml NS bolusing (Maricruz Marlatt, RN) Datetime: 06/30/2016 17:42 Hygiene: Underpad Changed; Peripad Changed (Maricruz Trinhnubiatt, RN) Datetime: 06/30/2016 17:40 I/O Interventions: Straight Cath (ml) @ 250 (Maricruz Gayathrinubiatt, RN) Datetime: 06/30/2016 17:36 Communication: RN at Bedside; Provider at Bedside (Maricruz Gayathrinubiatt, RN) Datetime: 06/30/2016 17:20 Pain Scale: 1 (Maricruz Marlatt, RN) Pain Presence: Constant (Maricruz Marlatt, RN) Pain Type: Cramping; Ache (Maricruz Marlatt, RN) Pain Location: Abdomen; Perineum (Maricruz Marlatt, RN) Pain Goal: 1 (Maricruz Marlatt, RN) Datetime: 06/30/2016 17:15 NBP Sys/Margarita/Mean (mmHg): 100 (QS system process) : 57 (QS system process) : 74 (QS system process) Pulse: 89 (QS system process) Datetime: 06/30/2016 17:03 Cervical Ripening Agents: Cytotec @ 800mcg (Maricruz Garcia, RN) Medication Comments: NV (Maricruz Garcia, RN) Datetime: 06/30/2016 17:00 NBP Sys/Margarita/Mean (mmHg): 107 (QS system process) : 63 (QS system process) : 80 (QS system process) Pulse: 102 (QS system process) Datetime: 06/30/2016 16:50 Pain Scale: 1 (Maricruz Garcia, RN) Pain Presence: Constant (Maricruz Garcia, RN) Pain Type: Ache (Maricruz Garcia, RN) Pain Location: Perineum (Maricruz Garcia, RN) Pain Goal: 1 (Maricruz Garcia, RN) Datetime: 06/30/2016 16:45 NBP Sys/Margarita/Mean (mmHg): 102 (QS system process) : 59 (QS system process) : 75 (QS system process) Pulse: 73 (QS system process) Datetime: 06/30/2016 16:35 Pain Scale: 2 (Maricruz Garcia RN) Pain Presence: Constant (Maricruz Garcia RN) Pain Type: Ache (Maricruz Garcia RN) Pain Location: Perineum (Maricruz Garcia RN) Pain Goal: 1 (Maricruz Garcia RN) Pain Relief Measures: Comfort Measures (Maricruz Garcia RN) Datetime: 06/30/2016 16:30 NBP Sys/Margarita/Mean (mmHg): 100 (QS system process) : 52 (QS system process) : 72 (QS system process) Pulse: 99 (QS system process) Datetime: 06/30/2016 16:20 Pain Scale: 2 (Maricruz Garcia RN) Pain Presence: Constant (Maricruz Garcia RN) Pain Type: Ache (Maricruz Garcia RN) Pain Location: Perineum (Maricruz Garcia RN) Pain Goal: 1 (Maricruz Garcia RN) Pain Relief Measures: Comfort Measures (Maricruz Garcia RN) Datetime: 06/30/2016 16:15 NBP Sys/Margarita/Mean (mmHg): 93 (QS system process) : 52 (QS system process) : 68 (QS system process) Pulse: 54 (QS system process) Datetime: 06/30/2016 16:08 Pain Scale: 2 (Maricruz Marlasharon, JAIRON) Pain Presence: Constant (Maricruz Garcia, RN) Pain Type: Ache (Maricruz Garcia, RN) Pain Location: Perineum (Maricruz Marlucrecia, RN) Pain Goal: 1 (Maricruz Marlasharon, JAIRON) Pain Relief Measures: Comfort Measures (Maricruz Garcia, JAIRON) Datetime: 06/30/2016 16:06 Stage of : Recovery (Maricruz Gacria, JAIRON) NBP Sys/Margarita/Mean (mmHg): 111 (QS system process) : 56 (QS system process) : 80 (QS system process) Pulse: 99 (QS system process) Datetime: 06/30/2016 16:01 NBP Sys/Margarita/Mean (mmHg): 126 (QS system process) : 60 (QS system process) : 86 (QS system process) Pulse: 102 (QS system process) LaborFlag: Labor (QS system process)
[2016-06-30] MEDS ORDERED: AMPICILLIN SOD/SULBACTAM 3 GM VIAL ONE (18:25)
--- NOTE | 2016-06-30 18:43 | PDOC PROGRESS REPORT ---
Subjective-OB Subjective: Post Delivery Day: 0 26 year old. Pt having cramping, coping well. Denies dizziness, feels chilled, but denies abdominal tenderness. Physical Exam (OB) Vital Signs: Intake & Output 06/29/16 06/30/16 07/01/16 06:59 06:59 06:59 Weight 70.75 kg - Lochia Lochia Amount: Heavy >50 ml Lochia Color: Rubra/Red Lochia Note: no free flowing blood, 300 cc clots manually extracted X2, pt felt warm, Temp 100.4, no abdominal tenderness, fundus firm with massage. - Abdomen Description: Firm Fundal Description: Firm Fundal Height: u/u - u/2 Objective-Diagnostic Laboratory: 06/30/16 13:45 06/30/16 06/30/16 06/30/16 11:56 13:45 13:45 WBC 9.9 RBC 4.41 Hgb 12.4 Hct 36.9 MCV 84 MCH 28.1 MCHC 33.6 RDW 18.6 H Plt Count 127 L Seg Neutrophils % 70.5 Lymphocytes % 22.0 Monocytes % 6.9 Eosinophils % 0.3 Basophils % 0.3 Absolute Neutrophils 7.0 Absolute Lymphocytes 2.2 Absolute Monocytes 0.7 Absolute Eosinophils 0.0 Absolute Basophils 0.0 Urine Color YELLOW Urine Appearance SLIGHTLY-CLOUDY Urine pH 7.0 Ur Specific [place] 1.006 Urine Protein NEGATIVE Urine Glucose (UA) NEGATIVE Urine Ketones NEGATIVE Urine Blood NEGATIVE Urine Nitrite NEGATIVE Ur Leukocyte Esterase MODERATE H Blood Type O POSITIVE Antibody Screen NEGATIVE Assessment and Plan(PN) - Assessment and Plan (1) Prolonged rupture of membranes Is this a current diagnosis for this admission?: YesPlan: see below peds awared (2) Chorioamnionitis Qualifiers: Fetus number: single or unspecified fetus Is this a current diagnosis for this admission?: YesPlan: unknow rupture time maternal temp pp unasyn 3g ivpb q. 8 hours for 24 hours continue to monitor cbc now (3) Vaginal delivery Is this a current diagnosis for this admission?: Yes Plan:: routine pp care - Time Spent with Patient Time with patient: Greater than 35 minutes Critical Time spent with patient: Greater than 35 minutes Medications reviewed and adjusted accordingly: Yes - Disposition Anticipated Discharge: Home Within: within 24 hours
[2016-06-30] MEDS ORDERED: ACETAMINOPHEN 325 MG TABLET ONE (19:32)
[2016-06-30 19:45] LABS: ABSOLUTE LYMPHOCYTES (AUTO) 1.6 10^3/uL (0.5-4.7); ABSOLUTE MONOCYTES (AUTO) 0.5 10^3/uL (0.1-1.4); ABSOLUTE NEUT (AUTO) 9.5 10^3/uL (1.7-8.2); BASOPHILS % (AUTO) 0.1 % (0-2); EOSINOPHILS % (AUTO) 0.1 % (0-6); HEMATOCRIT 28.9 % (36.0-47.0); HGB HCT DIFFERENCE -0.1; LYMPHOCYTES % (AUTO) 13.6 % (13-45); MEAN CORPUSCULAR HEMOGLOBIN 27.9 pg (27.0-33.4); MEAN CORPUSCULAR HGB CONC 33.2 g/dL (32.0-36.0); MEAN CORPUSCULAR VOLUME 84 fl (80-97); MONOCYTES % (AUTO) 4.7 % (3-13); RED BLOOD COUNT 3.45 10^6/uL (3.72-5.28); RED CELL DISTRIBUTION WIDTH 18.2 % (11.5-14.0); SEGMENTED NEUTROPHILS % (AUTO) 81.5 % (42-78); WHITE BLOOD COUNT 11.7 10^3/uL (4.0-10.5)
--- NOTE | 2016-06-30 19:46 | Admission Physical ---
Datetime Report Generated by CPN: 06/30/2016 19:45 CURRENT ADMISSION Hx Assessment: The History has been Reviewed and is Current Chief Complaint: Suspected Ruptured Membranes Indication for Induction: Not Applicable Admit Plan: Admit to Unit; Initiate Labor Protocol Admit Plan- Other: gbs + ALLERGIES Medication Allergies: No Medication Allergies: No Known Allergies (06/30/2016) Medication Allergies: No Known Allergies (06/01/2016) Medication Allergies: No Known Allergies (05/22/2016) Medication Allergies: No Known Allergies (05/18/2016) Medication Allergies: No Known Allergies (10/02/2014) Medication Allergies: No Known Allergies (08/24/2014) Medication Allergies: No Known Allergies (11/06/2013) Latex: No Latex Allergies Food Allergies: NONE Environmental Allergies: NONE OBSTETRICAL HISTORY EDC: 07/05/2016 00:00 : 4 Para: 3 Para: 3 Para: 3 Para: 3 Para: 3 Para: 3 Term: 3 : 0 SAB: 0 IAB: 0 Ectopic: 0 Livin Cesareans: 0 VBACs: 0 Multiple Births: 0 Gestational Diabetes: No Rh Sensitization: No Incompetent Cervix: No EVANGELIST: No Infertility: No ART Treatment: No Uterine Anomaly: No IUGR: No Hx Previous C/S: No Macrosomia: No Hx Loss/Stillborn: No PIH: No Hx : No Placenta Previa/Abruption: No Depression/PP Depression: No PTL/PROM: Yes Post Hemorrhage: No Current Procedures: Ultrasound SEE RECORDS Alcohol: No Marijuana : No Cocaine: No Other Illicit Drugs: No Cigarettes: Never Smoker. 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: No Heart Disease: No Hosp/Surgery: Yes Autoimmune Disorder: No Anesthetic Complications: No Kidney Disease: No Abnormal Pap Smear: Yes Neuro/Epilepsy: No Psychiatric Disorders: No Other Medical Diseases: Yes Hepatitis/Liver Disease: No Significant Family History: No Varicosities/Phlebitis: No Trauma/Violence : No Thyroid Dysfunction: No Medical History Comments: CHILDBIRTH ABN PAP THIS - REPEAT PP ANEMIA THIS WITH IRON INFUSION INFECTIOUS HISTORY Gonorrhea: No Genital Herpes: No Chlamydia: No Tuberculosis: No Syphilis: No Hepatitis: No HIV/AIDS Exposure: No Rash or Viral Illness: No HPV: No PHYSICAL EXAM General: Normal HEENT: Normal Neurologic: Normal Thyroid: Deferred Heart: Normal Lungs: Normal Breast: Normal Back: Normal Abdomen: Normal Genitourinary Exam: Normal Extremities: Normal DTRs: Normal Pelvic Type: Adequate Vital Signs: Reviewed VAGINAL EXAM Dilatation: 4 Dilatation: 3 Effacement: 90 Effacement: 70 Station: -1 Station: -1 Contraction Comments: 5-7 Contraction Comments: 3-7 MEMBRANES Membranes: Ruptured Membranes: Ruptured Amniotic Fluid Color: Clear Amniotic Fluid Color: Clear FETUS A EGA: 39.2 Monitoring: External US FHR- Baseline: 155 Variability: Moderate 6-25bpm Accelerations: 15X15 Decelerations: None FHR Category: Category I Presentation: Vertex Admit Comment: ? leaking for 3 days, + ferning, - amnisure admit to L _ D Gbs +, pcn Start pitocin may have epidural, prn PLANS FOR LABOR AND DELIVERY Labor and Delivery: None Pain Management: Epidural Feeding Preference: Breast Benefit of Breast Feed Discussed: Yes Circumcision: Yes INFORMED CONSENT Informed Consent Obtained: Vaginal Delivery Informed Consent Obtained: Vaginal Delivery Informed Consent Obtained- Other: may have epidural Assignment: Maya Shaver MD Signature: with User ID: [email or web address] : with User ID: [email or web address]
[2016-06-30 19:55] LABS: HEMOGLOBIN 9.6 g/dL (12.0-15.5)
--- NOTE | 2016-06-30 20:24 | Delivery Summary ---
Del Sum A-C Datetime Report Generated by CPN: 06/30/2016 20:24 ADMISSION DATA Chief Complaint: Suspected Ruptured Membranes Indication for Induction: Not Applicable Admission Impression: Term, Intrauterine ; No Active Labor; Ruptured Membranes Admit Provider Comments: ? leaking for 3 days, + ferning, - amnisure admit to L _ D Gbs +, pcn Start pitocin may have epidural, prn DELIVERY PERSONNEL Delivery Doctor:: Kasey Humphrey CNM Anesthesiologist:: Miguel Jack MD Labor and Delivery Nurse:: Maricruz Garcia RNpaper bag making machinist Nurse:: Kandis Hudson RN Sinter Press Operator/CARAMEL COLORING OPERATOR: Pippa Segura, FRAME NAILER MATERNAL INFORMATION Delivery Anesthesia: Epidural Medications After Delivery: Pitocin Bolus-Please Comment Meds After Delivery Comment: Pitocin 20 units in 1000 mL NS bolusing after delivery of placenta Estimated Blood Loss (ml): 200 Maternal Complications: Precipitous Labor (<3hrs); Other Other Maternal Complications: Suspicious for prolonged rupture Provider Comments: of viable male over intact perienum. Head, shoulders, and body delivered without difficulty. Vigorous, spontaneous cry and respirations, to maternal abdomen, cord clamped X2, cut free after 2 minute delay, spontaneous delivery of intact placenta via chen mechanism, appears intact 3 VC. Vagina and perineum inspected, no lacerations noted. Hemostasis acheived with external fundal massage and IV pitocon, mother and infant in stable condition routine pp care. LABOR SUMMARY EDC: 07/05/2016 00:00 No. Babies in Womb: 1 Attempted: No Labor Anesthesia: Epidural LABOR INFORMATION Reason for Induction: Not Applicable Onset of Labor: 06/30/2016 14:15 Complete Dilatation: 06/30/2016 15:50 Cervical Ripening Agents: Cytotec @ 800g Oxytocin: Augmentation Group B Beta Strep: 1 GROUP B BETA HEMOLYTIC STREPTOCOCCUS RECOVERED Antibiotics # of Doses: 1 Antibiotics Time of Last Dose: 1348 Name of Antibiotic Given: PCN Steroids Given: Full Course Reason Steroids Not Administered: Indication MEMBRANES Membranes Rupture Method: Artificial Rupture of Membranes: 06/28/2016 09:00 Length of Rupture (hr): 54.93 Amniotic Fluid Color: Clear Amniotic Fluid Amount: Moderate Amniotic Fluid Odor: Normal STAGES OF LABOR Stage 1 hr: 1 Stage 1 min: 35 Stage 2 hr: 0 Stage 2 min: 6 Stage 3 hr: 0 Stage 3 min: 10 Total Time in Labor hr: 1 Total Time in Labor min: 51 VAGINAL DELIVERY Laceration Extension: N/A Laceration Type: None Laceration Repair: Not Applicable Laceration Repair Note: n/a Sponge Count Correct: N/A Sharps Count Correct: N/A CSECTION DELIVERY Primary Indication: N/A Secondary Indication: N/A CSection Incidence: N/A Labor: N/A Elective: N/A CSection Incision: N/A BABY A INFORMATION Infant Delivery Date/Time: 06/30/2016 15:56 Method of Delivery: Vaginal Born in Route : No : N/A Forceps: N/A Vacuum Extraction: N/A Shoulder Dystocia : No PRESENTATION/POSITION BABY A Presentation: Cephalic Cephalic Presentation: Vertex Vertex Position: Left Occipital Anterior Breech Presentation: N/A PLACENTA INFORMATION BABY A Placenta Delivery Time : 06/30/2016 16:06 Placenta Method of Delivery: Spontaneous Placenta Status: Delivered SCORES BABY A Heart Rate 1 min: >100 bpm Resp Effort 1 min: Good Cry Reflex Irritability 1 min: Cough or Sneeze or Pulls Away Muscle Tone 1 min: Active Motion Color 1 min: Blue/Pale Resuscitation Effort 1 min: Tactile Stimulation SCORE 1 MIN: 8 Heart Rate 5 min: >100 bpm Resp Effort 5 min: Good Cry Reflex Irritability 5 min: Cough or Sneeze or Pulls Away Muscle Tone 5 min: Active Motion Color 5 min: Body [place], Extremities Blue Resuscitation Effort 5 min: N/A SCORE 5 MIN: 9 INFANT INFORMATION BABY A Gestational Age at Delivery: 39.2 Gestational Status: Full Term- 39- 40.6 Weeks Infant Outcome : Liveborn Infant Condition : Stable Infant Sex: Male IDENTIFICATION BABY A Verification Date/Time: 06/30/2016 16:12 ID Band Number: [id number] Mother's Name Verified: Yes RN Verifying Infant: Chirag Garcia RN Additional Verifying Personnel: Nida Marmolejo RN WEIGHT/LENGTH BABY A Infant Birthweight (gm): 3430 Infant Weight (lb): 7 Infant Weight (oz): 9 Length (in): 20.00 Infant Length (cm): 50.80 CORD INFORMATION BABY A No. Cord Vessels: 3 Nuchal Cord : N/A Cord Blood Taken: Yes-For Eval (Mom's Blood Type - or O+) Infant Suction: Mouth; Nose ASSESSMENT BABY A Infant Complications: None Physical Findings at Delivery: Within Normal Limits Respirations: Appears Normal Skin to Skin: Yes Substation Designer/ALS Called : No Infant Care By: Alvaro Hudson RN Transferred To: Remains with Mother BABY B INFORMATION : N/A SIGNATURES Assignment: Maya Shaver MD Signature: with User ID: Caroline : with User ID: Caroline
[2016-06-30] MEDS: DOCUSATE SODIUM 100 MG CAPSULE PO SCH (20:57)
[2016-06-30] MEDS: FERROUS SULFATE 325 MG TABLET PO SCH (20:57)
[2016-06-30] MEDS: IBUPROFEN 800 MG TABLET PO SCH (21:07)
[2016-06-30] MEDS ORDERED: AMPICILLIN SOD/SULBACTAM 3 GM VIAL IV SCH (22:00)
[2016-06-30] MEDS: ACETAMINOPHEN WITH CODEINE #3 TABLET PO PRN (23:37)
[2016-07-01] MEDS: AMPICILLIN SODIUM/SULBACTAM NA 3 GM in NORMAL SALINE 100 ML IV SCH ×2 (01:50→09:42)
[2016-07-01] MEDS: ACETAMINOPHEN WITH CODEINE #3 TABLET PO PRN ×3 (03:32→15:28)
[2016-07-01] MEDS: IBUPROFEN 800 MG TABLET PO SCH ×3 (06:16→21:16)
--- NOTE | 2016-07-01 07:01 | L&D Flow Sheet ---
LD Flowsheet Datetime Report Generated by CPN: 07/01/2016 07:00 Datetime: 06/30/2016 19:30 Temperature (F): 101.3 (Maricruz Garcia RN) Temperature (C): 38.5 (QS system process) Temperature Route: Axillary (Maricruz Garcia RN) Pain Scale: 1 (Maricruz Garcia RN) Pain Presence: Constant (Maricruz Garcia RN) Pain Type: Cramping; Ache (Maricruz Garcia RN) Pain Location: Abdomen; Perineum (Maricruz Garcia RN) Pain Goal: 1 (Maricruz Garcia RN) Pain Relief Measures: Comfort Measures (Maricruz Garcia RN) Datetime: 06/30/2016 19:00 NBP Sys/Margarita/Mean (mmHg): 104 (QS system process) : 57 (QS system process) : 77 (QS system process) Pulse: 94 (QS system process) Pain Scale: 1 (Maricruz Garcia RN) Pain Presence: Constant (Maricruz Garcia RN) Pain Type: Cramping; Ache (Maricruz Garcia RN) Pain Location: Abdomen; Perineum (Maricruz Garcia RN) Pain Goal: 1 (Maricruz Garcia RN) Pain Relief Measures: Comfort Measures (Maricruz Garcia RN)
[2016-07-01 07:19] LABS: HEMATOCRIT 27.8 % (36.0-47.0); HEMOGLOBIN 9.3 g/dL (12.0-15.5); HGB HCT DIFFERENCE 0.1; MEAN CORPUSCULAR HEMOGLOBIN 28.1 pg (27.0-33.4); MEAN CORPUSCULAR HGB CONC 33.5 g/dL (32.0-36.0); MEAN CORPUSCULAR VOLUME 84 fl (80-97); RED BLOOD COUNT 3.31 10^6/uL (3.72-5.28); RED CELL DISTRIBUTION WIDTH 18.1 % (11.5-14.0)
[2016-07-01] MEDS: DOCUSATE SODIUM 100 MG CAPSULE PO SCH ×2 (09:38→17:00)
[2016-07-01] MEDS: FERROUS SULFATE 325 MG TABLET PO SCH ×2 (09:38→17:00)
[2016-07-01] MEDS: SENNOSIDES/DOCUSATE 8.6-50 MG 1 EACH TABLET PO SCH (09:39)
[2016-07-01] MEDS: PRENATAL VITAMIN W-O CA NO5/FE FUMARATE/FA CAPSULE PO SCH (09:39)
--- NOTE | 2016-07-01 11:11 | PDOC PROGRESS REPORT ---
Subjective-OB Subjective: Post Delivery Day: 1 26 year old. Denies any needs at this time, lochia is stable, pain is well controlled, voiding without difficulty. Physical Exam (OB) Vital Signs: Temp Pulse Resp BP Pulse Ox 98.0 F 75 18 102/59 L 100 07/01/16 08:31 07/01/16 08:31 07/01/16 08:31 07/01/16 08:31 07/01/16 08:31 Intake & Output 06/30/16 07/01/16 07/02/16 06:59 06:59 06:59 Weight 70.75 kg - Lochia Lochia Amount: Scant < 10 ml Lochia Color: Rubra/Red - Abdomen Description: Soft, Round Hernia Present: No Fundal Description: Firm, Midline Fundal Height: u/u - u/2 Objective-Diagnostic Laboratory: 07/01/16 06:57 06/30/16 06/30/16 06/30/16 11:56 13:45 13:45 WBC 9.9 RBC 4.41 Hgb 12.4 Hct 36.9 MCV 84 MCH 28.1 MCHC 33.6 RDW 18.6 H Plt Count 127 L Seg Neutrophils % 70.5 Lymphocytes % 22.0 Monocytes % 6.9 Eosinophils % 0.3 Basophils % 0.3 Absolute Neutrophils 7.0 Absolute Lymphocytes 2.2 Absolute Monocytes 0.7 Absolute Eosinophils 0.0 Absolute Basophils 0.0 Urine Color YELLOW Urine Appearance SLIGHTLY-CLOUDY Urine pH 7.0 Ur Specific [place] 1.006 Urine Protein NEGATIVE Urine Glucose (UA) NEGATIVE Urine Ketones NEGATIVE Urine Blood NEGATIVE Urine Nitrite NEGATIVE Ur Leukocyte Esterase MODERATE H Blood Type O POSITIVE Antibody Screen NEGATIVE 06/30/16 07/01/16 19:28 06:57 WBC 11.7 H 11.0 H RBC 3.45 L 3.31 L Hgb 9.6 L D 9.3 L Hct 28.9 L 27.8 L MCV 84 84 MCH 27.9 28.1 MCHC 33.2 33.5 RDW 18.2 H 18.1 H Plt Count 127 L 118 L Seg Neutrophils % 81.5 H Lymphocytes % 13.6 Monocytes % 4.7 Eosinophils % 0.1 Basophils % 0.1 Absolute Neutrophils 9.5 H Absolute Lymphocytes 1.6 Absolute Monocytes 0.5 Absolute Eosinophils 0.0 Absolute Basophils 0.0 Urine Color Urine Appearance Urine pH Ur Specific [place] Urine Protein Urine Glucose (UA) Urine Ketones Urine Blood Urine Nitrite Ur Leukocyte Esterase Blood Type Antibody Screen Assessment and Plan(PN) - Assessment and Plan (1) Prolonged rupture of membranes Is this a current diagnosis for this admission?: YesPlan: abx for 24 hours continue to monitor (2) Chorioamnionitis Qualifiers: Fetus number: single or unspecified fetus Is this a current diagnosis for this admission?: Yes (3) Vaginal delivery Is this a current diagnosis for this admission?: YesPlan: routine pp care - Time Spent with Patient Time with patient: Less than 15 minutes Critical Time spent with patient: Less than 15 minutes Medications reviewed and adjusted accordingly: Yes - Disposition Anticipated Discharge: Home Within: within 24 hours
--- NOTE | 2016-07-01 18:01 | L&D General Admission ---
General Admit Datetime Report Generated by CPN: 07/01/2016 18:00 INFORMATION Patient Age: 24 (08/07/2014 08:54:QS system process) EDC: 07/05/2016 00:00 (05/11/2016 08:47:Tootie Lee RN) : 4 (05/11/2016 08:47:Tootie Lee RN) Para: 3 (06/19/2016 18:51:JENNIFER Solorzano) Term: 3 (05/11/2016 08:47:Tootie Lee RN) : 0 (05/11/2016 08:47:Tootie Lee RN) Spontaneous Abortions: 0 (05/11/2016 08:47:Tootie Lee RN) Induced Abortions: 0 (05/11/2016 08:47:Tootie Lee RN) Livin (05/11/2016 08:47:Tootie Lee RN) Cesareans: 0 (05/11/2016 08:47:Tootie Lee RN) VBACs: 0 (05/11/2016 08:47:Tootie Lee RN) Ectopic: 0 (05/11/2016 08:47:Tootie Lee RN) Multiple Births: 0 (05/11/2016 08:47:Tootie Lee RN) Baby, Number in Womb: 1 (06/19/2016 18:51:JENNIFER Solorzano) CARE Primary [place] Deckhand: [facility] (05/11/2016 08:47:Tootie Lee RN) Adequate Care: Yes (05/11/2016 08:47:Tootie Lee RN) Height (in): 60 (05/11/2016 09:05:QS system process) ALLERGIES Medication Allergy: No (05/11/2016 08:47:Tootie Lee RN) Medication Allergies: No Known Allergies (06/30/2016) (06/30/2016 12:17:QS system process) Latex Allergy: No Latex Allergies (05/11/2016 08:47:Tootie Lee RN) Food Allergies: NONE (05/11/2016 08:47:Tootie Lee RN) Environmental Allergies: NONE (05/11/2016 08:47:Tootie eLe RN) COMMUNICATION Primary Language: Algerian (05/11/2016 08:47:Tootie Lee RN) Medical Tx Preferred Language: Algerian (05/11/2016 08:47:Tootie Lee RN) Algerian Communication Ability: Speaks Algerian; Reads Algerian (05/11/2016 08:47:Marcela Floyd RN) Communication Barrier(s): None (05/11/2016 08:47:Tootie Lee RN) DEMOGRAPHICS Address: [place] [address] (04/25/2016 12:10:QS system process) Zipcode: [address] (08/07/2014 08:54:QS system process) Home (09/09/2015 11:52:QS system process) Work (09/09/2014 13:31:QS system process) SSN: [id number] (08/07/2014 08:54:QS system process) Next of Kin Name: ALISA ESCOBAR (08/07/2014 08:54:QS system process) Next of Kin (09/09/2014 13:31:QS system process) Next of Kin Relationship: [place] (08/07/2014 08:54:QS system process) Date of : 1990 (08/07/2014 08:54:QS system process) Marital Status: Single (08/07/2014 08:54:QS system process) Sex: Female (08/07/2014 08:54:QS system process) Race: (08/07/2014 08:54:QS system process) Ethnicity: Non- or (08/07/2014 08:54:QS system process) Moravian: None (08/07/2014 08:54:QS system process) DRUG AND ALCOHOL USE Alcohol: No (05/11/2016 08:47:Tootie Lee RN) Cigarettes: Never Smoker. 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: [employer] (05/11/2016 08:47:Tootie Lee RN) Feeding Preference: Breast (05/11/2016 08:47:Tootie Lee RN) Benefit of Breast Feed Discussed: Yes (05/11/2016 08:47:Tootie Lee RN) Circumcision: Yes (05/11/2016 08:47:Tootie Lee RN) Classes Attended: No (05/11/2016 08:47:Tootie Lee RN) Tubal Ligation: No (05/11/2016 08:47:Tootie Lee RN) Tubal Authorization Signed: N/A (05/11/2016 08:47:Tootie Lee RN) Consent: N/A (05/11/2016 08:47:Tootie Lee RN) Consent Signed: N/A (05/11/2016 08:47:Tootie Lee RN) Pain Management Plans: Epidural (05/11/2016 08:47:Tootie Lee RN) Plans for Labor and Delivery: None (05/11/2016 08:47:Tootie Lee RN) Support Person: ALISA ESCOBAR (05/11/2016 08:47:Tootie Lee RN) Support Person Relationship: Mother (05/11/2016 08:47:Tootie Lee RN) Cultural/Spritual Practice: No (05/11/2016 08:47:Tootie Lee RN) Spir/Cult Dietary Needs: No (05/11/2016 08:47:Tootie Lee RN) LIVING SITUATION/DISCHARGE PLAN Living Arrangements: Apartment (05/11/2016 08:47:Tootie Lee RN) Adequate Access to:: Electric; Heat; Refrigeration; Plumbing/Running water; Phone; Transportation (05/11/2016 08:47:Tootie Lee RN) WIC Program: Yes (05/11/2016 08:47:Tootie Lee RN) Discharge Adhesive Bonding Machine Operator Person: MOTHER (05/11/2016 08:47:Tootie Lee RN) Person to Help after Discharge: MARY (05/11/2016 08:47:Tootie Lee RN) Currently Using Commun Resources: No (05/11/2016 08:47:Tootie Lee RN) Outside Agency/Metal Rivet Machine Operator: No (05/11/2016 08:47:Tootie Lee RN) Car Seat for Discharge: Yes (05/11/2016 08:47:Radha Velez RN) Adoption Requested: No (05/11/2016 08:47:Tootie Lee RN) Pt Contact w/infant Post : N/A (05/11/2016 08:47:Tootie Lee RN) LABS Blood Type: O Positive (05/11/2016 08:47:Ju Edward RN) Antibody Screen: Negative (05/11/2016 08:47:Ju Edward RN) Hemoglobin: 9.3 L (07/01/2016 06:57:QS system process) Hematocrit: 27.8 L (07/01/2016 06:57:QS system process) MCV: 84 (07/01/2016 06:57:QS system process) Group Beta Strep: 1 GROUP B BETA HEMOLYTIC STREPTOCOCCUS RECOVERED (05/18/2016 16:00:QS system process) Gonorrhea: Negative (05/11/2016 08:47:Ju Edward RN) Chlamydia: Negative (05/11/2016 08:47:Ju Edward RN) Hepatitis B: Negative (05/11/2016 08:47:Ju Edward RN) Rubella: Immune (05/11/2016 08:47:Ju Edward RN) OB/PREVIOUS HISTORY Previous Procedures: Ultrasound (05/11/2016 08:47:Tootie Lee RN) Current Procedures: Ultrasound (05/11/2016 08:47:Tootie Lee RN) History of Previous : No (05/11/2016 08:47:Tootie Lee RN) History of Gestational Diabetes: No (05/11/2016 08:47:Tootie Lee RN) History of PIH: No (05/11/2016 08:47:Tootie Lee RN) History of Incompetent Cervix: No (05/11/2016 08:47:Tootie Lee RN) History of Placenta Previa/Abrup: No (05/11/2016 08:47:Tootie Lee RN) History of Macrosomia: No (05/11/2016 08:47:Tootie Lee RN) History of IUGR: No (05/11/2016 08:47:Tootie Lee RN) History of Hemorrhage: No (05/11/2016 08:47:Tootie Lee RN) History of Loss/Stillborn: No (05/11/2016 08:47:Tootie Lee RN) History of : No (05/11/2016 08:47:Tootie Lee RN) History of D (Rh) Sensitization: No (05/11/2016 08:47:Tootie Lee RN) History Recurrent Loss/Stillborn: No (05/11/2016 08:47:Tootie Lee RN) History Depression/PP Depression: No (05/11/2016 08:47:Tootie Lee RN) History of Uterine Anomaly/EVANGELIST: No (05/11/2016 08:47:Tootie Lee RN) History of Infertility: No (05/11/2016 08:47:Tootie Lee RN) History of ART Treatment: No (05/11/2016 08:47:Tootie Lee RN) History of EVANGELIST: No (05/11/2016 08:47:Tootie Lee RN) MEDICAL HISTORY Med Hx Diabetes: No (05/11/2016 08:47:Tootie Lee RN) Med Hx Hypertension: No (05/11/2016 08:47:Tootie Lee RN) Med Hx Heart Disease: No (05/11/2016 08:47:Tootie Lee RN) Med Hx Autoimmune Disorder: No (05/11/2016 08:47:Tootie Lee RN) Med Hx Kidney Disease/UTI: No (05/11/2016 08:47:Tootie Lee RN) Med Hx Neurologic/Epilepsy: No (05/11/2016 08:47:Tootie Lee RN) Med Hx Psychiatric Disorders: No (05/11/2016 08:47:Tootie Lee RN) Med Hx Hepatitis/Liver Disease: No (05/11/2016 08:47:Tootie Lee RN) Med Hx Varicosities/Phlebitis: No (05/11/2016 08:47:Tootie Lee RN) Med Hx Thyroid Dysfunction: No (05/11/2016 08:47:Tootie Lee RN) Med Hx Trauma/Violence: No (05/11/2016 08:47:Tootie Lee RN) Med Hx Blood Transfusion: No (05/11/2016 08:47:Tootie Lee RN) Med Hx Pulmonary (Asthma,TB): No (05/11/2016 08:47:Tootie Lee RN) Med Hx Breast: No (05/11/2016 08:47:Tootie Lee RN) Med Hx DECONTAMINATOR Surgery: No (05/11/2016 08:47:Tootie Lee RN) Med Hx Hospitalization/Surgery: Yes (05/11/2016 08:47:Tootie Lee RN) Med Hx Anesthetic Complications: No (05/11/2016 08:47:Tootie Lee RN) Med Hx Abnormal Pap Smear: Yes (05/11/2016 08:47:Tootie Lee RN) Other Medical Diseases: Yes (05/11/2016 08:47:Tootie Lee RN) Med Hx Significant Family Hx: No (05/11/2016 08:47:Tootie Lee RN) Details of Med/Surg Hx: CHILDBIRTH ABN PAP THIS - REPEAT PP ANEMIA THIS WITH IRON INFUSION (05/11/2016 08:47:Tootie Lee RN) INFECTIOUS HISTORY Inf Hx Gonorrhea: No (05/11/2016 08:47:Tootie Lee RN) Inf Hx Chlamydia: No (05/11/2016 08:47:Tootie Lee RN) Inf Hx Syphilis: No (05/11/2016 08:47:Tootie Lee RN) Inf Hx HIV/AIDS: No (05/11/2016 08:47:Tootie Lee RN) Inf Hx Human Papilloma Virus: No (05/11/2016 08:47:Tootie Lee RN) Inf Hx Pt/Partner Genital Herpes: No (05/11/2016 08:47:Tootie Lee RN) Inf Hx Tuberculosis/Exposure: No (05/11/2016 08:47:Tootie Lee RN) Inf Hx Hepatitis B,C: No (05/11/2016 08:47:Tootie Lee RN) Inf Hx Rash or Viral Illness: No (05/11/2016 08:47:Tootie Lee RN) GENETIC HISTORY Gen Hx Age >=35 at SLOAN: No (05/11/2016 08:47:Tootie Lee RN) Gen Hx Thalassemia: No (05/11/2016 08:47:Tootie Lee RN) Gen Hx Congenital Heart Defect: No (05/11/2016 08:47:Tootie Lee RN) Gen Hx Neural Tube Defect: No (05/11/2016 08:47:Tootie Lee RN) Gen Hx Down's Syndrome: No (05/11/2016 08:47:Tootie Lee RN) Gen Hx Terry-Sachs: No (05/11/2016 08:47:Tootie Lee RN) Gen Hx Zi: No (05/11/2016 08:47:Tootie Lee RN) Gen Hx Familial Dysautonomia: No (05/11/2016 08:47:Tootie Lee RN) Gen Hx Sickle Cell Disease/Trait: No (05/11/2016 08:47:Tootie Lee RN) Gen Hx Hemophilia/Blood Disorder: No (05/11/2016 08:47:Tootie Lee RN) Gen Hx Muscular Dystrophy: No (05/11/2016 08:47:Tootie Lee RN) Gen Hx Cystic Fibrosis: No (05/11/2016 08:47:Tootie Lee RN) Gen Hx [place] Chorea: No (05/11/2016 08:47:Tootie Lee RN) Gen Hx Mental Retardation/Autism: No (05/11/2016 08:47:Tootie Lee RN) Gen Hx Tested for Fragile X: No (05/11/2016 08:47:Tootie Lee RN) Gen Hx Other Inher/Chromosomal: No (05/11/2016 08:47:Tootie Lee RN) Gen Hx Maternal Metabolic DO: No (05/11/2016 08:47:Tootie Lee RN) Gen Hx Pt Father or FOB Defect: No (05/11/2016 08:47:Tootie Lee RN) Gen Hx Other Genetic History: No (05/11/2016 08:47:Tootie Lee RN) Gen Hx Drugs/Meds since LMP: No (05/11/2016 08:47:Tootie Lee RN)
--- NOTE | 2016-07-01 18:01 | L&D Current Admission ---
Current Admit Datetime Report Generated by N: 07/01/2016 18:00 ADMISSION INFORMATION Current Admit Date/Time: 06/30/2016 13:00 (06/30/2016 13:04:Maricruz Garcia RN) Reason for Admission: Rupture of Membranes (06/30/2016 13:04:Maricruz Garcia RN) Chief Complaint: Suspected Rupture of Membranes (06/30/2016 13:04:Marcela Floyd RN) Medications During : Vitamin (06/30/2016 13:04:Maricruz Garcia RN) EGA per Dates: 39.2 (06/30/2016 13:04:QS system process) Method of Arrival: Ambulatory (06/30/2016 13:04:Maricruz Garcia RN) Admitted From: Home (06/30/2016 13:04:Maricruz Garcia RN) Reason for Induction: Not Applicable (06/30/2016 13:04:Maricruz Garcia RN) Records Available: Yes (06/30/2016 13:04:Maricruz Garcia RN) General Admission Information: Reviewed; Updated; Confirmed (06/30/2016 13:04:Maricruz Garcia RN) General Admission Reviewed By: Chirag Garcia RN (06/30/2016 13:04:Maricruz Garcia RN) BELONGINGS/ADVANCED DIRECTIVES Valuables/Personal Effects: Purse/Wallet; Cell Phone; Jewelry (06/30/2016 13:04:Maricruz Garcia RN) Disposition of Belongings: Kept with Patient (06/30/2016 13:04:Maricruz Garcia RN) Advance Direct for Healthcare: No, and Wants No Information (06/30/2016 13:04:Maricruz Garcia RN) Durable Power of Ice Cream Dispenser: No (06/30/2016 13:04:Maricruz Garcia RN) Living Will: No (06/30/2016 13:04:Maricruz Garcia RN) Organ Donor: No (06/30/2016 13:04:Maricruz Garcia RN) Pt Rights Information Given: Yes (06/30/2016 13:04:Maricruz Garcia RN) Pt Understands Pt Rights: Yes (06/30/2016 13:04:Maricruz Garcia RN) DOMESTIC VIOLANCE SCREENING Dom Viol Threatened/Hurt: No (06/30/2016 13:04:Maricruz Garcia RN) Hx of Abuse/Neglect past 2yrs: No (06/30/2016 13:04:Maricruz Garcia RN) Feel Unsafe Going Home: No (06/30/2016 13:04:Maricruz Garcia RN) Addt'l Observ Indicating Abuse: No (06/30/2016 13:04:Maricruz Garcia RN) Reason Unable to Complete Screen: N/A, Screen Completed (06/30/2016 13:04:Maricruz Garcia RN) Considered Personal Harm/Suicide: No (06/30/2016 13:04:Maricruz Garcia RN) NUTRITIONAL/FUNCTIONAL SCREENING Problem with Appetite >5 Days: No (06/30/2016 13:04:Maricruz Garcia RN) Chew/Swallow Difficulties: No (06/30/2016 13:04:Maricruz Garcia RN) Inappropriate Wt Gain/Loss: No (06/30/2016 13:04:Maricruz Garcia RN) Presence Skin Breakdown/Ulcer: No (06/30/2016 13:04:Maricruz Garcia RN) Special Diet: No (06/30/2016 13:04:Maricruz Garcia RN) Pt Requests Government Affairs Director Visit: No (06/30/2016 13:04:Maricruz Garcia RN) Hx of Any of the Following?: N/A (06/30/2016 13:04:Maricruz Garcia RN) New Diagnosis of: N/A (06/30/2016 13:04:Maricruz Garcia RN) Requires Assist w/Ambulation: No (06/30/2016 13:04:Maricruz Garcia RN) Uses Assist Device to Ambulate: No (06/30/2016 13:04:Maricruz Garcia RN) Pt Requires Help w/ADL's: No (06/30/2016 13:04:Maricruz Garcia RN)
--- NOTE | 2016-07-01 18:16 | L&D Care Plan ---
LD CARE PLANS Datetime Report Generated by CPN: 07/01/2016 18:15 Datetime: 06/30/2016 13:23 Pain State: Actual (Tootie Lee RN) Related To: Labor and Delivery Process; Complication(s) of ; Treatment and Procedures; Post (Tootie Lee RN) Goal(s): Patients Pain will be Assessed and Managed; Patient will Verbalize Adequate Relief of Pain or the Ability to [place] with Current Pain (Tootie Lee RN) Interventions: Assess Pain Severity on Scale of 0 (None) to 5 (Severe); Assess Type, Location and Intensity of Pain Each Time Client Reports Discomfort and Notify Provider if Unusal Pain Develops; Encourage Proper Breathing and Relaxation Techniques; Offer Alternatives Such as Repositioning, Calm Environment, Massages, Diversional Activities, Ice Pack, Splinting, and Ambulation; Administer Analgesics as Ordered; Assist with Epidural Placement as Appropriate; Evaluate Therapeutic Effectiveness of Medication and Treatments (Tootie Lee RN) Outcome: Patient will Report Absence or Relief of Pain Consistent with Established Pain Goal (Tootie Lee RN) Status: Ongoing (Tootie Lee RN) Outcome: Patient will have a Decrease in Signs and Symptoms of Discomfort (Tootie Lee RN) Status: Ongoing (Tootie Lee RN) Outcome: Pain will be Controlled During Procedures (Tootie Lee RN) Status: Ongoing (Tootie Lee RN) Anxiety State: Actual (Tootie Lee RN) Related To: Labor and Delivery Process; Perceived or Actual Threat to ; Fear of Unknown; Situational Crisis; Significant Life Event (Tootie Lee RN) Goal(s): Patient will have Decreased Anxiety and be able to Function at Acceptable Levels (Tootie Lee RN) Interventions: Assess Verbal and Nonverbal Behavioral Indicators of Anxiety; Assist Patient to Identify and Verbalize Symptoms of Anxiety; Identify and Demonstrate Techniques to Control Anxiety; Assist Patient with Coping Mechanisms to Manage Anxiety; Provide Theraputic Touch for the Patient; Explain to Patient, Using a Calm Reassuring Approach and Nonmedical Terms, All Activities, Procedures, and Concerns; Instruct Patient and Family about Post Discharge Care, Limitations, Symptoms to Report and Resources Available (Tootie Lee RN) Outcome: Patient will Identify, Verbalize and Demonstrate Techniques to Control Anxiety (Tootie Lee RN) Status: Ongoing (Tootie Lee RN) Outcome: Patient's Posture, Facial Expressions, Gestures and Activity Level will Reflect Decreased Anxiety (Tootie Lee RN) Status: Ongoing (Tootie Lee RN) Outcome: Patient will Verbalize a Sense of Control and/or Acceptance of the Situation (Tootie Lee RN) Status: Ongoing (Tootie Lee RN) Outcome: Patient will Identify and Utilize Support Person (Tootie Lee RN) Status: Ongoing (Tootie Lee RN) Knowledge Deficit State: Risk For (Tootie Lee RN) Related To: Labor and Delivery Process; Treatment and Procedures; Impending Alterations in Family Dynamics; Feeding and Infant Care; Community Resources and Available Support Mechanisms (Tootie Lee RN) Goal(s): Patient will Accurately Verbalize Understanding of Plan of Care and Treatment; Patient and Family will Accurately Verbalize Understanding of the Disease Process (Tootie Lee RN) Interventions: Assess Motivation and Willingness of Patient/Family to Learn; Assess Preferred Learning Mode: One to One Instruction, Reading, Videos, Group Discussion or Demonstration; Assess Barriers to Learning: Pain, Emotional State, Language Barrier, Cognitive Impairment, Visual or Hearing Deficits; Assess Patient and Family Knowledge of Disease Process, Medications and Treatment; Discuss Therapy and/or Treatment Options, Describe Rationale Behind Management, Therapy and Treatment Recommendations; Instruct Patient and Family on Signs and Symptoms to Report; Instruct Patient and Family on Medication Effects and Side Effects; Provide Appropriate and Timely Education Using Multiple Techniques; Provide Patient and Family with Support Group Information and Resources; Give Clear and Thorough Explanations and Demonstrations (Tootie Lee RN) Outcome: Patient and Family will Verbalize Understanding of Condition, Treatment and Signs and Symptoms to Report (Tootie Lee RN) Status: Ongoing (oTotie Lee RN) Outcome: Patient will Identify Perceived Learning Needs and Express Motivation to Learn (Tootie Lee RN) Status: Ongoing (Tootie Lee RN) Outcome: Patient will Verbalize Understanding of Desired Content, and/or Performs Desired Skill Prior to Discharge (Tootie Lee RN) Status: Ongoing (Tootie Lee RN) Infection State: Risk For (Tootie Lee RN) Related To: Prolonged Labor or Induction; Premature/Prolonged Rupture of Membranes; Invasive Procedures (Tootie Lee RN) Goal(s): The Patient will be Free of Infection, Vital Signs Stable and Lab Work within Normal Parameters (Tootie Lee RN) Interventions: Instruct and Reinforce Proper Handwashing, Hygiene, and Care Techniques to Patient and Family; Monitor Vital Signs; Monitor Patient for the Following Signs of Infection: Fever, Abdominal Tenderness, Unusual Discharge; Monitor Aminiotic Fluid, Urine and Lochia for Color and Odor; Observe Wounds, Incisions and Invasive Line Sites for Redness, Drainage and Edema; Assess IV Sites per Hospital Policy; Monitor Lab and Test Results and Notify Provider of Abnormal Findings; Assess Nutritional Status and Promote Good Nutrition (Tootie Lee RN) Outcome: Patient will Remain Free of Infection (Tootie Lee RN) Status: Ongoing (Tootie Lee RN) Outcome: Infection will be Recognized Early to Allow for Prompt Treatment (Tootie Lee RN) Status: Ongoing (Tootie Lee RN) Outcome: Patient will have Vital Signs Within Expected Range (Tootie Lee RN) Status: Ongoing (Tootie Lee RN) Fluid Volume State: Risk For (Tootie Lee RN) Related To: Prolonged Labor or Induction; Hemorrhage; Anesthesia (Tootie Lee RN) Goal(s): Patient will Achieve and Maintain a Balanced Fluid Volume Status; Hemodynamically Stable (Tootie Lee RN) Interventions: Monitor Vital Signs; Auscultate Breath Sounds; Monitor Patient for Skin Turgor, Mucous Membranes, Dry Skin, Weakness, Headaches and Confusion; Provide Oral Fluids as Ordered; Initiate and Maintain Intravenous Fluids as Ordered; Monitor Intake and Output as Indicated Per Patient Status; Accurately Measure Blood Loss; Monitor Lab and Test Results as Obtained and Notify Provider of Abnormal Findings; Monitor Patient's Weight (Tootie Lee RN) Outcome: Patient will have Clear Lung Sounds (Tootie Lee RN) Status: Ongoing (Tootie Lee RN) Outcome: Patient will have Vital Signs within Expected Range (Tootie Lee RN) Status: Ongoing (Tootie Lee RN) Outcome: Urine Output will be within Expected Range (Tootie Lee RN) Status: Ongoing (Tootie Lee RN) Outcome: Patient will have Minimal Generalized or Upper Extremity Edema (Tootie Lee RN) Status: Ongoing (Tootie Lee RN) Injury State: Risk For (Tootie Lee RN) Related To: Labor and Delivery Process; Anesthesia; Risk to Status; Uteroplacental Perfusion; Decreased Mobility; Hemorrhage, Placenta Previa and or Placental Abruption (Tootie Lee RN) Goal(s): Patient will Remain Free from Injury (Tootie Lee RN) Interventions: Monitoring as per Hospital Protocol; Assess Neurological Status; Perform Risk Assessment of Patients with Induction and ; Perform Fall Risk Assessment and Prevention per Hospital Protocol; Perform DVT Risk Assessment and Prophylaxis per Hospital Protocol; Ensure that Oxygen, Suction, and Resuscitation Medications and Equipment are Readily Available; Confirm Patient ID Prior to Procedure(s) and Medication Administration per Hospital Policy (Tootie Lee RN) Outcome: Successful Fall Risk Prevention (Tootie Lee RN) Status: Ongoing (Tootie Lee RN) Outcome: Patient will Deliver without Adverse [place]ela (Tootie Lee RN) Status: Ongoing (Tootie Lee RN) Outcome: Patient's Neurological Status will Remain Stable (Tootie Lee RN) Status: Ongoing (Tootie Lee RN) Impaired Skin Integrity State: Risk For (Tootie Lee RN) Related To: Vaginal Delivery; Invasive Procedures (Tootie Lee, JAIRON) Goal(s): Patient will Maintain Optimal Skin Integrity, Free of Breakdown, Injury or Infection (Tootie Lee RN) Interventions: Complete Screening for Pressure Ulcer Risk and Initiate Protocol per Hospital Policy; Monitor Site of Skin Impairment for Color Changes, Redness, Swelling, Warmth, Pain or Other Signs of Infection; Encourage and Assist with Position Changes; Monitor Patient's Mobility Status; Provide Adequate Nutrition and Fluids; Teach Patient Appropriate Hygienic Care; Teach Patient/Family Skin Care Management (Tootie Lee RN) Outcome: Patient will not have Evidence of Injury Such as Skin Breakdown, Scrapes, Cuts, or Bruising (Tootie Lee RN) Status: Ongoing (Tootie Lee RN) Outcome: Patient will Report Any Altered Sensation or Pain at Site of Skin Impairment (Tootie Lee, RN) Status: Ongoing (Tootie Lee RN) Outcome: Patients Incisions and Wounds will be without Signs or Symptoms of Infection (Tootie Lee, JAIRON) Status: Ongoing (Tootie Lee RN) Outcome: Patient will Demonstrate Understanding of Plan to Heal Skin and Prevent Reinjury and Verbalize Risk Factors (Tootie Lee RN) Status: Ongoing (Tootie Lee RN) Parenting Impaired State: Risk For (Tootie Lee RN) Related To: Apprehension Related to Care (Tootie Lee RN) Goal(s): Parents will Demonstrate Progressive Parenting Behaviors (Tootie Lee RN) Interventions: Assess for Adequacy of Support Systems; Observe and Encourage Patient/Family Infant Attachment and Bonding Activities and Provide Feedback; Assess Patient/Family Understanding of Infant's Condition and Provide Accurate Information About Condition, Treatment and Prognosis; Assess for Patient/Family Behaviors that May Indicate Lack of Attachment; Provide a Safe Non-judgmental Environment for Patient/Family to Discuss Concerns; Promote Patient/Family Cohesiveness by Encouraging Discussion and Problem Solving; Chair Mechanic Referral as Indicated (Tootie Lee RN) Outcome: Patient/Family will Discuss Their Fears and the Possibility of Difficulties with Parenting (Tootie Lee RN) Status: Ongoing (Tootie Lee RN) Outcome: Patient/Family will Exhibit Appropriate Bonding Behaviors with (Tootie Lee RN) Status: Ongoing (Tootie Lee RN) Outcome: Patient/Family will Verbalize Positive Feelings and Demonstrate Affection and Caring Toward (Tootie Lee RN) Status: Ongoing (Tootie Lee RN) Nutrition State: Risk For (Tootie Lee RN) Related To: ; (Tootie Lee RN) Goal(s): Patient will have an Intake of Nutrients Sufficient to Meet Metabolic Needs (Tootie Lee RN) Interventions: Nutritional Screening and Assessment per Hospital Policy; Consult Wellness Specialist for Further Assessment and Recommendations Regarding Food Preferences and Nutritional Support; Allow Patient to Plan and Order Diet when Possible; Monitor Laboratory Values That Indicate Nutritional Well-being; Consult Contact Center Professional for Nutritional Support Regarding Requirements; Document Actual Weight Initially and Weekly (Do Not Estimate); Encourage Patient Participation in Maintaining a Food Log as Indicated; Educate Patient on the Importance of Maintaining an Adequate Caloric Intake (Tootie Lee, JAIRON) Outcome: Patient will Receive Adequate Calories and Fluid Volume to Meet Metabolic Needs (Tootie Lee RN) Status: Ongoing (Tootie Lee RN) Outcome: Patient will Select Foods or Meals that Support Adequate Nutrition (Tootie Lee RN) Status: Ongoing (Tootie Lee RN)
[2016-07-02] MEDS: IBUPROFEN 800 MG TABLET PO SCH ×2 (05:25→14:25)
--- NOTE | 2016-07-02 06:01 | L&D General Admission ---
General Admit Datetime Report Generated by CPN: 07/02/2016 06:00 INFORMATION Patient Age: 24 (08/07/2014 08:54:QS system process) EDC: 07/05/2016 00:00 (05/11/2016 08:47:Tootie Lee RN) : 4 (05/11/2016 08:47:Tootie Lee RN) Para: 3 (06/19/2016 18:51:JENNIFER Solorzano) Term: 3 (05/11/2016 08:47:Tootie Lee RN) : 0 (05/11/2016 08:47:Tootie Lee RN) Spontaneous Abortions: 0 (05/11/2016 08:47:Tootie Lee RN) Induced Abortions: 0 (05/11/2016 08:47:Tootie Lee RN) Livin (05/11/2016 08:47:Tootie Lee RN) Cesareans: 0 (05/11/2016 08:47:Tootie Lee RN) VBACs: 0 (05/11/2016 08:47:Tootie Lee RN) Ectopic: 0 (05/11/2016 08:47:Tootie Lee RN) Multiple Births: 0 (05/11/2016 08:47:Tootie Lee RN) Baby, Number in Womb: 1 (06/19/2016 18:51:JENNIFER Solorzano) CARE Primary Consultant Electronics: [facility] (05/11/2016 08:47:Tootie Lee RN) Adequate Care: Yes (05/11/2016 08:47:Tootie Lee RN) Height (in): 60 (05/11/2016 09:05:QS system process) ALLERGIES Medication Allergy: No (05/11/2016 08:47:Tootie Lee RN) Medication Allergies: No Known Allergies (06/30/2016) (06/30/2016 12:17:QS system process) Latex Allergy: No Latex Allergies (05/11/2016 08:47:Tootie Lee RN) Food Allergies: NONE (05/11/2016 08:47:Tootie Lee RN) Environmental Allergies: NONE (05/11/2016 08:47:Tootie Lee RN) COMMUNICATION Primary Language: British (05/11/2016 08:47:Tootie Lee RN) Medical Tx Preferred Language: British (05/11/2016 08:47:Tootie Lee RN) British Communication Ability: Speaks British; Reads British (05/11/2016 08:47:Marcela Floyd RN) Communication Barrier(s): None (05/11/2016 08:47:Tootie Lee RN) DEMOGRAPHICS Address: [place] [address] (04/25/2016 12:10:QS system process) Zipcode: [address] (08/07/2014 08:54:QS system process) Home (09/09/2015 11:52:QS system process) Work (09/09/2014 13:31:QS system process) SSN: [id number] (08/07/2014 08:54:QS system process) Next of Kin Name: ALISA ESCOBAR (08/07/2014 08:54:QS system process) Next of Kin (09/09/2014 13:31:QS system process) Next of Kin Relationship: MO (08/07/2014 08:54:QS system process) Date of : 1990 (08/07/2014 08:54:QS system process) Marital Status: Single (08/07/2014 08:54:QS system process) Sex: Female (08/07/2014 08:54:QS system process) Race: (08/07/2014 08:54:QS system process) Ethnicity: Non- or (08/07/2014 08:54:QS system process) Buddhist: None (08/07/2014 08:54:QS system process) DRUG AND ALCOHOL USE Alcohol: No (05/11/2016 08:47:Tootie Lee RN) Cigarettes: Never Smoker. [id number] (05/11/2016 08:47:Tootie Lee RN) Marijuana: No (05/11/2016 08:47:Tootie Lee RN) Cocaine: No (05/11/2016 08:47:Tootie Lee RN) Other Illicit Drugs: No (05/11/2016 08:47:Tootie Lee RN) VACCINE HISTORY Influenza Vaccine: No (05/11/2016 08:47:Tootie Lee RN) Pneumococcal Vaccine: No (05/11/2016 08:47:Tootie Lee RN) Tetanus Vaccine: Uncertain (05/11/2016 08:47:Tootie Lee RN) Tdap Vaccine: No (05/11/2016 08:47:Tootie Lee RN) Hepatitis B Vaccine: Yes (05/11/2016 08:47:Tootie Lee RN) Respiratory Services Manager: [facility] (05/11/2016 08:47:Tootie Lee RN) Feeding Preference: Breast (05/11/2016 08:47:Tootie Lee RN) Benefit of Breast Feed Discussed: Yes (05/11/2016 08:47:Tootie Lee RN) Circumcision: Yes (05/11/2016 08:47:Tootie Lee RN) Classes Attended: No (05/11/2016 08:47:Tootie Lee RN) Tubal Ligation: No (05/11/2016 08:47:Tootie Lee RN) Tubal Authorization Signed: N/A (05/11/2016 08:47:Tootie Lee RN) Consent: N/A (05/11/2016 08:47:Tootie Lee RN) Consent Signed: N/A (05/11/2016 08:47:Tootie Lee RN) Pain Management Plans: Epidural (05/11/2016 08:47:Tootie Lee RN) Plans for Labor and Delivery: None (05/11/2016 08:47:Tootie Lee RN) Support Person: ALISA ESCOBAR (05/11/2016 08:47:Tootie Lee RN) Support Person Relationship: Mother (05/11/2016 08:47:Tootie Lee RN) Cultural/Spritual Practice: No (05/11/2016 08:47:Tootie Lee RN) Spir/Cult Dietary Needs: No (05/11/2016 08:47:Tootie Lee RN) LIVING SITUATION/DISCHARGE PLAN Living Arrangements: Apartment (05/11/2016 08:47:Tootie Lee RN) Adequate Access to:: Electric; Heat; Refrigeration; Plumbing/Running water; Phone; Transportation (05/11/2016 08:47:Tootie Lee RN) WIC Program: Yes (05/11/2016 08:47:Tootie Lee RN) Discharge Antenna Installer Person: MOTHER (05/11/2016 08:47:Tootie Lee RN) Person to Help after Discharge: MARY (05/11/2016 08:47:Tootie Lee RN) Currently Using Commun Resources: No (05/11/2016 08:47:Tootie Lee RN) Outside Agency/Folding Rules Printing Machine Operator: No (05/11/2016 08:47:Tootie Lee RN) Car Seat for Discharge: Yes (05/11/2016 08:47:Radha Velez RN) Adoption Requested: No (05/11/2016 08:47:Tootie Lee RN) Pt Contact w/infant Post : N/A (05/11/2016 08:47:Tootie Lee RN) LABS Blood Type: O Positive (05/11/2016 08:47:Ju Edward RN) Antibody Screen: Negative (05/11/2016 08:47:Ju Edward RN) Hemoglobin: 9.3 L (07/01/2016 06:57:QS system process) Hematocrit: 27.8 L (07/01/2016 06:57:QS system process) MCV: 84 (07/01/2016 06:57:QS system process) Group Beta Strep: 1 GROUP B BETA HEMOLYTIC STREPTOCOCCUS RECOVERED (05/18/2016 16:00:QS system process) Gonorrhea: Negative (05/11/2016 08:47:Ju Edward RN) Chlamydia: Negative (05/11/2016 08:47:Ju Edward RN) Hepatitis B: Negative (05/11/2016 08:47:Ju Edward RN) Rubella: Immune (05/11/2016 08:47:Ju Edward RN) OB/PREVIOUS HISTORY Previous Procedures: Ultrasound (05/11/2016 08:47:Tootie Lee RN) Current Procedures: Ultrasound (05/11/2016 08:47:Tootie Lee RN) History of Previous : No (05/11/2016 08:47:Tootie Lee RN) History of Gestational Diabetes: No (05/11/2016 08:47:Tootie Lee RN) History of PIH: No (05/11/2016 08:47:Tootie Lee RN) History of Incompetent Cervix: No (05/11/2016 08:47:Tootie Lee RN) History of Placenta Previa/Abrup: No (05/11/2016 08:47:Tootie Lee RN) History of Macrosomia: No (05/11/2016 08:47:Tootie Lee RN) History of IUGR: No (05/11/2016 08:47:Tootie Lee RN) History of Hemorrhage: No (05/11/2016 08:47:Tootie Lee RN) History of Loss/Stillborn: No (05/11/2016 08:47:Tootie Lee RN) History of : No (05/11/2016 08:47:Tootie Lee RN) History of D (Rh) Sensitization: No (05/11/2016 08:47:Tootie Lee RN) History Recurrent Loss/Stillborn: No (05/11/2016 08:47:Tootie Lee RN) History Depression/PP Depression: No (05/11/2016 08:47:Tootie Lee RN) History of Uterine Anomaly/EVANGELIST: No (05/11/2016 08:47:Tootie Lee RN) History of Infertility: No (05/11/2016 08:47:Tootie Lee RN) History of ART Treatment: No (05/11/2016 08:47:Tootie Lee RN) History of EVANGELIST: No (05/11/2016 08:47:Tootie Lee RN) MEDICAL HISTORY Med Hx Diabetes: No (05/11/2016 08:47:Tootie Lee RN) Med Hx Hypertension: No (05/11/2016 08:47:Tootie Lee RN) Med Hx Heart Disease: No (05/11/2016 08:47:Tootie Lee RN) Med Hx Autoimmune Disorder: No (05/11/2016 08:47:Tootie Lee RN) Med Hx Kidney Disease/UTI: No (05/11/2016 08:47:Tootie Lee RN) Med Hx Neurologic/Epilepsy: No (05/11/2016 08:47:Tootie Lee RN) Med Hx Psychiatric Disorders: No (05/11/2016 08:47:Tootie Lee RN) Med Hx Hepatitis/Liver Disease: No (05/11/2016 08:47:Tootie Lee RN) Med Hx Varicosities/Phlebitis: No (05/11/2016 08:47:Tootie Lee RN) Med Hx Thyroid Dysfunction: No (05/11/2016 08:47:Tootie Lee RN) Med Hx Trauma/Violence: No (05/11/2016 08:47:Tootie Lee RN) Med Hx Blood Transfusion: No (05/11/2016 08:47:Tootie Lee RN) Med Hx Pulmonary (Asthma,TB): No (05/11/2016 08:47:Tootie Lee RN) Med Hx Breast: No (05/11/2016 08:47:Tootie Lee RN) Med Hx GENERAL REPAIRER Surgery: No (05/11/2016 08:47:Tootie Lee RN) Med Hx Hospitalization/Surgery: Yes (05/11/2016 08:47:Tootie Lee RN) Med Hx Anesthetic Complications: No (05/11/2016 08:47:Tootie Lee RN) Med Hx Abnormal Pap Smear: Yes (05/11/2016 08:47:Tootie Lee RN) Other Medical Diseases: Yes (05/11/2016 08:47:Tootie Lee RN) Med Hx Significant Family Hx: No (05/11/2016 08:47:Tootie Lee RN) Details of Med/Surg Hx: CHILDBIRTH ABN PAP THIS - REPEAT PP ANEMIA THIS WITH IRON INFUSION (05/11/2016 08:47:Tootie Lee RN) INFECTIOUS HISTORY Inf Hx Gonorrhea: No (05/11/2016 08:47:Tootie Lee RN) Inf Hx Chlamydia: No (05/11/2016 08:47:Tootie Lee RN) Inf Hx Syphilis: No (05/11/2016 08:47:Tootie Lee RN) Inf Hx HIV/AIDS: No (05/11/2016 08:47:Tootie Lee RN) Inf Hx Human Papilloma Virus: No (05/11/2016 08:47:Tootie Lee RN) Inf Hx Pt/Partner Genital Herpes: No (05/11/2016 08:47:Tootie Lee RN) Inf Hx Tuberculosis/Exposure: No (05/11/2016 08:47:Tootie Lee RN) Inf Hx Hepatitis B,C: No (05/11/2016 08:47:Tootie Lee RN) Inf Hx Rash or Viral Illness: No (05/11/2016 08:47:Tootie Lee RN) GENETIC HISTORY Gen Hx Age >=35 at SLOAN: No (05/11/2016 08:47:Tootie Lee RN) Gen Hx Thalassemia: No (05/11/2016 08:47:Tootie Lee RN) Gen Hx Congenital Heart Defect: No (05/11/2016 08:47:Tootie Lee RN) Gen Hx Neural Tube Defect: No (05/11/2016 08:47:Tootie Lee RN) Gen Hx Down's Syndrome: No (05/11/2016 08:47:Tootie Lee RN) Gen Hx Terry-Sachs: No (05/11/2016 08:47:Tootie Lee RN) Gen Hx Zi: No (05/11/2016 08:47:Tootie Lee RN) Gen Hx Familial Dysautonomia: No (05/11/2016 08:47:Tootie Lee RN) Gen Hx Sickle Cell Disease/Trait: No (05/11/2016 08:47:Tootie Lee RN) Gen Hx Hemophilia/Blood Disorder: No (05/11/2016 08:47:Tootie Lee RN) Gen Hx Muscular Dystrophy: No (05/11/2016 08:47:Tootie Lee RN) Gen Hx Cystic Fibrosis: No (05/11/2016 08:47:Tootie Lee RN) Gen Hx Huntingtons Chorea: No (05/11/2016 08:47:Tootie Lee RN) Gen Hx Mental Retardation/Autism: No (05/11/2016 08:47:Tootie Lee RN) Gen Hx Tested for Fragile X: No (05/11/2016 08:47:Tootie Lee RN) Gen Hx Other Inher/Chromosomal: No (05/11/2016 08:47:Tootie Lee RN) Gen Hx Maternal Metabolic DO: No (05/11/2016 08:47:Tootie Lee RN) Gen Hx Pt Father or FOB Defect: No (05/11/2016 08:47:Tootie Lee RN) Gen Hx Other Genetic History: No (05/11/2016 08:47:Tootie Lee RN) Gen Hx Drugs/Meds since LMP: No (05/11/2016 08:47:Tootie Lee RN)
--- NOTE | 2016-07-02 06:16 | L&D Care Plan ---
LD CARE PLANS Datetime Report Generated by CPN: 07/02/2016 06:16 Datetime: 06/30/2016 13:23 State: Actual (Tootie Lee RN) Related To: Labor and Delivery Process; Complication(s) of ; Treatment and Procedures; Post (Tootie Lee RN) Goal(s): Patients Pain will be Assessed and Managed; Patient will Verbalize Adequate Relief of Pain or the Ability to [place] with Current Pain (Tootie Lee RN) Interventions: Assess Pain Severity on Scale of 0 (None) to 5 (Severe); Assess Type, Location and Intensity of Pain Each Time Client Reports Discomfort and Notify Provider if Unusal Pain Develops; Encourage Proper Breathing and Relaxation Techniques; Offer Alternatives Such as Repositioning, Calm Environment, Massages, Diversional Activities, Ice Pack, Splinting, and Ambulation; Administer Analgesics as Ordered; Assist with Epidural Placement as Appropriate; Evaluate Therapeutic Effectiveness of Medication and Treatments (Tootie Lee RN) Outcome: Patient will Report Absence or Relief of Pain Consistent with Established Pain Goal (Tootie Lee RN) Status: Ongoing (Tootie Lee RN) Outcome: Patient will have a Decrease in Signs and Symptoms of Discomfort (Tootie Lee RN) Status: Ongoing (Tootie Lee RN) Outcome: Pain will be Controlled During Procedures (Tootie Lee RN) Status: Ongoing (Tootie Lee RN) State: Actual (Tootie Lee RN) Related To: Labor and Delivery Process; Perceived or Actual Threat to ; Fear of Unknown; Situational Crisis; Significant Life Event (Tootie Lee RN) Goal(s): Patient will have Decreased Anxiety and be able to Function at Acceptable Levels (Tootie Lee RN) Interventions: Assess Verbal and Nonverbal Behavioral Indicators of Anxiety; Assist Patient to Identify and Verbalize Symptoms of Anxiety; Identify and Demonstrate Techniques to Control Anxiety; Assist Patient with Coping Mechanisms to Manage Anxiety; Provide Theraputic Touch for the Patient; Explain to Patient, Using a Calm Reassuring Approach and Nonmedical Terms, All Activities, Procedures, and Concerns; Instruct Patient and Family about Post Discharge Care, Limitations, Symptoms to Report and Resources Available (Tootie Lee RN) Outcome: Patient will Identify, Verbalize and Demonstrate Techniques to Control Anxiety (Tootie Lee RN) Status: Ongoing (Tootie Lee RN) Outcome: Patient's Posture, Facial Expressions, Gestures and Activity Level will Reflect Decreased Anxiety (Tootie Lee RN) Status: Ongoing (Tootie Lee RN) Outcome: Patient will Verbalize a Sense of Control and/or Acceptance of the Situation (Tootie Lee RN) Status: Ongoing (Tootie Lee RN) Outcome: Patient will Identify and Utilize Support Person (Tootie Lee RN) Status: Ongoing (Tootie Lee RN) State: Risk For (Tootie Lee RN) Related To: Labor and Delivery Process; Treatment and Procedures; Impending Alterations in Family Dynamics; Feeding and Infant Care; Community Resources and Available Support Mechanisms (Tootie Lee RN) Goal(s): Patient will Accurately Verbalize Understanding of Plan of Care and Treatment; Patient and Family will Accurately Verbalize Understanding of the Disease Process (Tootie Lee RN) Interventions: Assess Motivation and Willingness of Patient/Family to Learn; Assess Preferred Learning Mode: One to One Instruction, Reading, Videos, Group Discussion or Demonstration; Assess Barriers to Learning: Pain, Emotional State, Language Barrier, Cognitive Impairment, Visual or Hearing Deficits; Assess Patient and Family Knowledge of Disease Process, Medications and Treatment; Discuss Therapy and/or Treatment Options, Describe Rationale Behind Management, Therapy and Treatment Recommendations; Instruct Patient and Family on Signs and Symptoms to Report; Instruct Patient and Family on Medication Effects and Side Effects; Provide Appropriate and Timely Education Using Multiple Techniques; Provide Patient and Family with Support Group Information and Resources; Give Clear and Thorough Explanations and Demonstrations (Tootie Lee RN) Outcome: Patient and Family will Verbalize Understanding of Condition, Treatment and Signs and Symptoms to Report (Tootie Lee RN) Status: Ongoing (Tootie Lee RN) Outcome: Patient will Identify Perceived Learning Needs and Express Motivation to Learn (Tootie Lee RN) Status: Ongoing (Tootie Lee RN) Outcome: Patient will Verbalize Understanding of Desired Content, and/or Performs Desired Skill Prior to Discharge (Tootie Lee RN) Status: Ongoing (Tootie Lee RN) State: Risk For (Tootie Lee RN) Related To: Prolonged Labor or Induction; Premature/Prolonged Rupture of Membranes; Invasive Procedures (Tootie Lee, JAIRON) Goal(s): The Patient will be Free of Infection, Vital Signs Stable and Lab Work within Normal Parameters (Tootie Lee RN) Interventions: Instruct and Reinforce Proper Handwashing, Hygiene, and Care Techniques to Patient and Family; Monitor Vital Signs; Monitor Patient for the Following Signs of Infection: Fever, Abdominal Tenderness, Unusual Discharge; Monitor Aminiotic Fluid, Urine and Lochia for Color and Odor; Observe Wounds, Incisions and Invasive Line Sites for Redness, Drainage and Edema; Assess IV Sites per Hospital Policy; Monitor Lab and Test Results and Notify Provider of Abnormal Findings; Assess Nutritional Status and Promote Good Nutrition (Tootie Lee RN) Outcome: Patient will Remain Free of Infection (Tootie Lee RN) Status: Ongoing (Tootie Lee RN) Outcome: Infection will be Recognized Early to Allow for Prompt Treatment (Tootie Lee RN) Status: Ongoing (Tootie Lee RN) Outcome: Patient will have Vital Signs Within Expected Range (Tootie Lee RN) Status: Ongoing (Tootie Lee RN) State: Risk For (Tootie Lee RN) Related To: Prolonged Labor or Induction; Hemorrhage; Anesthesia (Tootie Lee RN) Goal(s): Patient will Achieve and Maintain a Balanced Fluid Volume Status; Hemodynamically Stable (Tootie Lee RN) Interventions: Monitor Vital Signs; Auscultate Breath Sounds; Monitor Patient for Skin Turgor, Mucous Membranes, Dry Skin, Weakness, Headaches and Confusion; Provide Oral Fluids as Ordered; Initiate and Maintain Intravenous Fluids as Ordered; Monitor Intake and Output as Indicated Per Patient Status; Accurately Measure Blood Loss; Monitor Lab and Test Results as Obtained and Notify Provider of Abnormal Findings; Monitor Patient's Weight (Tootie Lee RN) Outcome: Patient will have Clear Lung Sounds (Tootie Lee RN) Status: Ongoing (Tootie Lee RN) Outcome: Patient will have Vital Signs within Expected Range (Tootie Lee RN) Status: Ongoing (Tootie Lee RN) Outcome: Urine Output will be within Expected Range (Tootie Lee RN) Status: Ongoing (Tootie Lee RN) Outcome: Patient will have Minimal Generalized or Upper Extremity Edema (Tootie Lee RN) Status: Ongoing (Tootie Lee RN) State: Risk For (Tootie Lee RN) Related To: Labor and Delivery Process; Anesthesia; Risk to Status; Uteroplacental Perfusion; Decreased Mobility; Hemorrhage, Placenta Previa and or Placental Abruption (Tootie Lee RN) Goal(s): Patient will Remain Free from Injury (Tootie Lee RN) Interventions: Monitoring as per Hospital Protocol; Assess Neurological Status; Perform Risk Assessment of Patients with Induction and ; Perform Fall Risk Assessment and Prevention per Hospital Protocol; Perform DVT Risk Assessment and Prophylaxis per Hospital Protocol; Ensure that Oxygen, Suction, and Resuscitation Medications and Equipment are Readily Available; Confirm Patient ID Prior to Procedure(s) and Medication Administration per Hospital Policy (Tootie Lee RN) Outcome: Successful Fall Risk Prevention (Tootie Lee RN) Status: Ongoing (Tootie Lee RN) Outcome: Patient will Deliver Infant without Adverse Sequela (Tootie Lee RN) Status: Ongoing (Tootie Lee RN) Outcome: Patient's Neurological Status will Remain Stable (Tootie Lee RN) Status: Ongoing (Tootie Lee RN) State: Risk For (Tootie Lee RN) Related To: Vaginal Delivery; Invasive Procedures (Tootie Lee RN) Goal(s): Patient will Maintain Optimal Skin Integrity, Free of Breakdown, Injury or Infection (Tootie Lee RN) Interventions: Complete Screening for Pressure Ulcer Risk and Initiate Protocol per Hospital Policy; Monitor Site of Skin Impairment for Color Changes, Redness, Swelling, Warmth, Pain or Other Signs of Infection; Encourage and Assist with Position Changes; Monitor Patient's Mobility Status; Provide Adequate Nutrition and Fluids; Teach Patient Appropriate Hygienic Care; Teach Patient/Family Skin Care Management (Tootie Lee, JAIRON) Outcome: Patient will not have Evidence of Injury Such as Skin Breakdown, Scrapes, Cuts, or Bruising (Tootie Lee, JAIRON) Status: Ongoing (Tootie Lee RN) Outcome: Patient will Report Any Altered Sensation or Pain at Site of Skin Impairment (Tootie Lee, JAIRON) Status: Ongoing (Tootie Lee, JAIRON) Outcome: Patients Incisions and Wounds will be without Signs or Symptoms of Infection (Tootie Lee, JAIRON) Status: Ongoing (Tootie Lee, JAIRON) Outcome: Patient will Demonstrate Understanding of Plan to Heal Skin and Prevent Reinjury and Verbalize Risk Factors (Tootie Lee, JAIRON) Status: Ongoing (Tootie Lee RN) State: Risk For (Tootie Lee RN) Related To: Apprehension Related to Spur Care (Tootie Lee RN) Goal(s): Parents will Demonstrate Progressive Parenting Behaviors (Tootie Lee RN) Interventions: Assess for Adequacy of Support Systems; Observe and Encourage Patient/Family Attachment and Bonding Activities and Provide Feedback; Assess Patient/Family Understanding of Infant's Condition and Provide Accurate Information About Condition, Treatment and Prognosis; Assess for Patient/Family Behaviors that May Indicate Lack of Attachment; Provide a Safe Non-judgmental Environment for Patient/Family to Discuss Concerns; Promote Patient/Family Cohesiveness by Encouraging Discussion and Problem Solving; Inspector Finishing Referral as Indicated (Tootie Lee RN) Outcome: Patient/Family will Discuss Their Fears and the Possibility of Difficulties with Parenting (Tootei Lee RN) Status: Ongoing (Tootie Lee RN) Outcome: Patient/Family will Exhibit Appropriate Bonding Behaviors with Infant (Tootie Lee RN) Status: Ongoing (Tootie Lee RN) Outcome: Patient/Family will Verbalize Positive Feelings and Demonstrate Affection and Caring Toward (Tootie Lee RN) Status: Ongoing (Tootie Lee RN) State: Risk For (Tootie Lee RN) Related To: ; (Tootie Lee RN) Goal(s): Patient will have an Intake of Nutrients Sufficient to Meet Metabolic Needs (Tootie Lee RN) Interventions: Nutritional Screening and Assessment per Hospital Policy; Consult Returned Goods Inspector for Further Assessment and Recommendations Regarding Food Preferences and Nutritional Support; Allow Patient to Plan and Order Diet when Possible; Monitor Laboratory Values That Indicate Nutritional Well-being; Consult Speech Writer for Nutritional Support Regarding Requirements; Document Actual Weight Initially and Weekly (Do Not Estimate); Encourage Patient Participation in Maintaining a Food Log as Indicated; Educate Patient on the Importance of Maintaining an Adequate Caloric Intake (Tootie Lee RN) Outcome: Patient will Receive Adequate Calories and Fluid Volume to Meet Metabolic Needs (Tootie Lee RN) Status: Ongoing (Tootie Lee RN) Outcome: Patient will Select Foods or Meals that Support Adequate Nutrition (Tootie Lee RN) Status: Ongoing (Tootie Lee RN)
[2016-07-02] MEDS: SENNOSIDES/DOCUSATE 8.6-50 MG 1 EACH TABLET PO SCH (09:05)
[2016-07-02] MEDS: DOCUSATE SODIUM 100 MG CAPSULE PO SCH (09:05)
[2016-07-02] MEDS: PRENATAL VITAMIN W-O CA NO5/FE FUMARATE/FA CAPSULE PO SCH (09:05)
[2016-07-02] MEDS: FERROUS SULFATE 325 MG TABLET PO SCH (09:05)
[2016-07-02 09:14] VITALS: BP 109/66
[2016-07-02] MEDS ORDERED: ONDANSETRON 4 MG TAB.RAPDIS ONE (09:30)
[2016-07-02] MEDS ORDERED: ONDANSETRON 4 MG TAB.RAPDIS PO ONE (09:45)
--- NOTE | 2016-07-02 09:51 | PDOC DISCHARGE SUMMARY ---
Final Diagnosis Discharge Date: 07/02/16 - Final Diagnosis (1) Prolonged rupture of membranes Is this a current diagnosis for this admission?: Yes (2) Chorioamnionitis Is this a current diagnosis for this admission?: Yes (3) Vaginal delivery Is this a current diagnosis for this admission?: Yes Discharge Data - Discharge Medication Home Medications: No.40/Iron/FA/Dha [[facility] Multi-Dha Softgel] 1 each PO DAILY 07/14 Docusate Sodium [Colace 100 mg Capsule] 100 mg PO BID #60 capsule 07/02/16 Ferrous Sulfate [Feosol 325 mg Tablet] 325 mg PO BID #60 tablet 07/02/16 Ibuprofen [Motrin 800 mg Tablet] 800 mg PO Q8 #60 tablet 07/02/16 Gestational Age: 39.3 Reason(s) for Admission: PROM, Group B Strep Positive Procedures: NST Intrapartum Procedure(s): Spontaneous Vaginal Delivery - Data Baby 1 Male at 1 minute: 8 at 5 minutes: 9 Weight: 3430 kg Home with Mother: Yes Complications: Yes - ? SROM for 3 days, maternal temp after delivery - Diagnosis Test Laboratory: Temp Pulse Resp BP Pulse Ox 97.6 F 74 16 109/66 100 07/02/16 08:53 07/02/16 08:53 07/02/16 08:53 07/02/16 08:53 07/02/16 08:53 06/30/16 06/30/16 06/30/16 11:56 13:45 19:28 RBC 4.41 3.45 L Hgb 12.4 9.6 L D Hct 36.9 28.9 L Urine Opiates Screen NEGATIVE 07/01/16 06:57 RBC 3.31 L Hgb 9.3 L Hct 27.8 L Urine Opiates Screen - Discharge information/Instructions Discharge Activity: Activity As Tolerated, Pelvic Rest, No tub bath Discharge Diet: Regular Disposition: HOME, SELF-CARE Follow up with: [facility] in: 4, Weeks
== END 2016-07-02 16:29 | disposition home or self-care (01) | DRG 775 ==
LOC: LC 11:43 → LR 13:17 → 2S 19:44
PROVIDERS: ADMIT Obstetrics & Gynecology; ATTEND Obstetrics & Gynecology
PROC: 10E0XZZ Delivery of Products of Conception, External Approach (ICD-10-PCS; principal; 2016-06-30)
PROC: 3E0P7GC Introduction of Other Therapeutic Substance into Female Reproductive, Via Natural or Artificial Opening (ICD-10-PCS; 2016-06-30)
PROC: 4A1HXCZ Monitoring of Products of Conception, Cardiac Rate, External Approach (ICD-10-PCS; 2016-06-30)
DX: O42.12 Full-term premature rupture of membranes, onset of labor more than 24 hours following rupture (principal); O41.1230 Chorioamnionitis, third trimester, not applicable or unspecified; O99.824 Streptococcus B carrier state complicating childbirth; O62.3 Precipitate labor; Z28.21 Immunization not carried out because of patient refusal; Z3A.39 39 weeks gestation of pregnancy; Z37.0 Single live birth
CPT/HCPCS: 36415; 80307; 81005; 84112; 85025; 85027; 86592; 86850; 86900; 86901; 94760; J0295; J2540; J2590; J3490; Q0114; S0119

== ENCOUNTER 2016-07-03 18:40 | Emergency (ER) | payer MEDICAID ==
[2016-07-03] MEDS ORDERED: ACETAMINOPHEN 325 MG TABLET PO ONE (19:00)
--- NOTE | 2016-07-03 19:01 | ER Document Report ---
ED Medical Screen (RME) - General Stated Complaint: FEVER POST Time seen by provider: 18:58 Mode of Arrival: Wheelchair Information source: Patient Notes: 26-year-old non breast-feeding female that delivered vaginally on 06-30, and was treated for group B strep started feeling like she was getting sick prior to her being discharged yesterday. Today her fever went to 102 with chills despite Tylenol and Motrin. Her bleeding is large blood clots which is abnormal. She does have some pelvic pain. No runny nose or cough. breasts are nontender. I have greeted and performed a rapid initial assessment of this patient. A comprehensive ED assessment, evaluation of the patient, analysis of test results , and completion of the medical decision making process will be conducted by additional ED providers. TRAVEL OUTSIDE OF THE [place] IN LAST 30 DAYS: No - Related Data Allergies/Adverse Reactions: No Known Allergies Allergy (Verified 06/30/16 12:17) Past Medical History Neurological Medical History: Reports: Hx Migraine GI Medical History: Reports: Hx Gastroesophageal Reflux Disease Psychiatric Medical History: Reports: Hx Anxiety, Hx Depression - Immunizations Hx Diphtheria, Pertussis, Tetanus Vaccination: No Physical Exam - Vital signs Vitals: Temp Pulse Resp BP Pulse Ox 102.0 F H 123 H 20 119/73 100 07/03/16 18:49 07/03/16 18:49 07/03/16 18:49 07/03/16 18:49 07/03/16 18:49 Course - Vital Signs Vital signs: Temp Pulse Resp BP Pulse Ox 102.0 F H 123 H 20 119/73 100 07/03/16 18:49 07/03/16 18:49 07/03/16 18:49 07/03/16 18:49 07/03/16 18:49
[2016-07-03 19:38] LABS: ABSOLUTE EOSINOPHILS # (AUTO) 0.1 10^3/uL (0.0-0.6); ABSOLUTE LYMPHOCYTES (AUTO) 0.8 10^3/uL (0.5-4.7); ABSOLUTE MONOCYTES (AUTO) 0.4 10^3/uL (0.1-1.4); ABSOLUTE NEUT (AUTO) 5.6 10^3/uL (1.7-8.2); BASOPHILS % (AUTO) 0.2 % (0-2); EOSINOPHILS % (AUTO) 1.1 % (0-6); HEMATOCRIT 30.1 % (36.0-47.0); HEMOGLOBIN 10.1 g/dL (12.0-15.5); HGB HCT DIFFERENCE 0.2; LYMPHOCYTES % (AUTO) 11.9 % (13-45); MEAN CORPUSCULAR HGB CONC 33.4 g/dL (32.0-36.0); MEAN CORPUSCULAR VOLUME 84 fl (80-97); MONOCYTES % (AUTO) 5.3 % (3-13); RED CELL DISTRIBUTION WIDTH 18.1 % (11.5-14.0); SEGMENTED NEUTROPHILS % (AUTO) 81.5 % (42-78); WHITE BLOOD COUNT 6.9 10^3/uL (4.0-10.5)
[2016-07-03 19:53] LABS: ALANINE AMINOTRANSFERASE 21 U/L (9-52); ALBUMIN 3.5 g/dL (3.5-5.0); ALKALINE PHOSPHATASE 98 U/L (38-126); ANION GAP 11 (5-19); ASPARTATE AMINO TRANSFERASE 29 U/L (14-36); BILIRUBIN,TOTAL 0.5 mg/dL (0.2-1.3); BLOOD UREA NITROGEN 12 mg/dL (7-20); CALCIUM 9.5 mg/dL (8.4-10.2); CARBON DIOXIDE 25 mmol/L (22-30); CHLORIDE 104 mmol/L (98-107); CREATININE RESULT 0.55 mg/dL (0.52-1.25); GLUCOSE 78 mg/dL (75-110); POTASSIUM 3.4 mmol/L (3.6-5.0); SODIUM 139.5 mmol/L (137-145); TOTAL PROTEIN 6.3 g/dL (6.3-8.2)
--- NOTE | 2016-07-03 21:25 | ER Document Report ---
ED GI/ - General Chief Complaint: Fever Stated Complaint: FEVER POST Time seen by provider: 21:25 Mode of Arrival: Wheelchair Information source: Patient TRAVEL OUTSIDE OF THE [place] IN LAST 30 DAYS: No - HPI Patient complains to provider of: Diarrhea, Pelvic pain Onset: This morning Timing/Duration: Gradual Quality of pain: Achy Severity at maximum: Moderate Severity in ED: Moderate Pain Level: 3 Location: Pelvis Exacerbated by: Denies Relieved by: Denies Similar symptoms previously: No Recently seen / treated by doctor: Yes Notes: 07/04/16 03:56 Patient is a 26 year old female who is 3 days from a normal vaginal delivery, she states that she is having flulike symptoms with body aches, pain in her uterus, her pelvis, her legs, and also having chills, she reports some diarrhea but no nausea or vomiting, denies a cough, cold or congestion, no dysuria, vaginal discharge consistent with blood, with no odor and no other discharge, she does report that she was exposed to the flu while in hospital shortly after having her baby, she also reports a history of GBS infection that was treated while she was in the hospital as well - Related Data Allergies/Adverse Reactions: No Known Allergies Allergy (Verified 07/03/16 19:01) Past Medical History - General Information source: Patient - Social History Smoking Status: Never Smoker Chew tobacco use (# tins/day): No Frequency of alcohol use: None Drug Abuse: None Family History: Hypertension Patient has suicidal ideation: No Patient has homicidal ideation: No Neurological Medical History: Reports: Hx Migraine Renal/ Medical History: Denies: Hx Peritoneal Dialysis GI Medical History: Reports: Hx Gastroesophageal Reflux Disease Psychiatric Medical History: Reports: Hx Anxiety, Hx Depression - Immunizations Hx Diphtheria, Pertussis, Tetanus Vaccination: No Review of Systems - Review of Systems Constitutional: See HPI EENT: No symptoms reported Cardiovascular: No symptoms reported Respiratory: See HPI Gastrointestinal: See HPI Genitourinary: See HPI Female Genitourinary: See HPI Musculoskeletal: See HPI Skin: No symptoms reported Hematologic/Lymphatic: No symptoms reported Neurological/Psychological: No symptoms reported -: Yes All other systems reviewed and negative Physical Exam - Vital signs Vitals: Temp Pulse Resp BP Pulse Ox 102.0 F H 123 H 20 119/73 100 07/03/16 18:49 07/03/16 18:49 07/03/16 18:49 07/03/16 18:49 07/03/16 18:49 Interpretation: Tachycardic, Febrile - General General appearance: Appears well, Alert - HEENT Head: Normocephalic, Atraumatic Eyes: Normal Pupils: PERRL - Respiratory Respiratory status: No respiratory distress Chest status: Nontender Breath sounds: Normal Chest palpation: Normal - Cardiovascular Rhythm: Regular Heart sounds: Normal auscultation Murmur: No - Abdominal Inspection: Normal Distension: No distension Bowel sounds: Normal Tenderness: Tender - Suprapubic Organomegaly: No organomegaly - Back Back: Normal, Nontender - Extremities General upper extremity: Normal inspection, Nontender, Normal color, Normal ROM , Normal temperature General lower extremity: Normal inspection, Nontender, Normal color, Normal ROM , Normal temperature, Normal weight bearing. No: Namrata's sign - Neurological Neuro grossly intact: Yes Cognition: Normal Orientation: AAOx4 [place] Coma Scale Eye Opening: Spontaneous [place] Coma Scale Verbal: Oriented [place] Coma Scale Motor: Obeys Commands [place] Coma Scale Total: 15 Speech: Normal Motor strength normal: LUE, RUE, LLE, RLE Sensory: Normal - Psychological Associated symptoms: Normal affect, Normal mood - Skin Skin Temperature: Warm Skin Moisture: Dry Skin Color: Normal Course - Re-evaluation Re-evalutation: 07/04/16 04:00 Lab and imaging findings were discussed with patient at bedside, which are significant for a urinary tract infection, she does report a history of group B strep infection during , and she plans on trying to breast-feed her child, therefore she was started on Keflex, advised to follow-up with her primary care provider or [facility] in the next 1-2 days or return if symptoms worsen, patient acknowledges understanding and agreement with this plan - Vital Signs Vital signs: Temp Pulse Resp BP Pulse Ox 97.9 F 94 16 106/53 L 98 07/04/16 00:07 07/04/16 00:07 07/04/16 00:07 07/04/16 00:07 07/04/16 00:07 - Laboratory Result Diagrams: 07/03/16 19:16 07/03/16 19:16 Laboratory results interpreted by me: 07/03/16 07/03/16 07/03/16 19:16 19:16 21:30 RBC 3.60 L Hgb 10.1 L Hct 30.1 L RDW 18.1 H Plt Count 138 L Seg Neutrophils % 81.5 H Lymphocytes % 11.9 L Potassium 3.4 L Urine Blood LARGE H Ur Leukocyte Esterase LARGE H - Diagnostic Test Radiology reviewed: Image reviewed, Reports reviewed Discharge - Discharge Clinical Impression: Pelvic pain Urinary tract infection Qualifiers: Urinary tract infection type: site unspecified Hematuria presence: without hematuria Qualified Code(s): N39.0 - Urinary tract infection, site not specified Condition: Stable Disposition: HOME, SELF-CARE Instructions: Urinary Tract Infection ([facility]), Cephalexin ([facility]) Additional Instructions: Follow up with your primary care provider in one to 2 days. Return to the emergency room immediately if symptoms worsen or any additional concerns. Prescriptions: Cephalexin Monohydrate [Keflex 500 mg Capsule] 500 mg PO BID #20 capsule Hydrocodone/Acetaminophen [Hydrocodon-Acetaminophen 5-325] 1 each PO Q6 #20 tablet Forms: Return to Work Referrals: JEREMIAS TOVAR MD [Primary Care Provider] - Follow up as needed
[2016-07-03] MEDS ORDERED: HYDROCODONE/ACETAMINOPHEN 5-325 MG TABLET PO ONE (21:37)
[2016-07-03 21:50] LABS: APPEARANCE,URINE CLEAR; BILIRUBIN,URINE NEGATIVE (NEGATIVE); GLUCOSE, URINE NEGATIVE (NEGATIVE); KETONES,URINE NEGATIVE (NEGATIVE); LEUKOCYTE ESTERASE,URINE LARGE (NEGATIVE); NITRITE,URINE NEGATIVE (NEGATIVE); PROTEIN,URINE NEGATIVE (NEGATIVE); URINE SPECIFIC GRAVITY 1.011; UROBILINOGEN,URINE NEGATIVE mg/dL (<2.0)
[2016-07-03] MEDS ORDERED: ONDANSETRON HCL INJ/PF 4 MG/2 ML SDV IV ONE (22:13)
[2016-07-03] MEDS ORDERED: NORMAL SALINE 1000 ML 1,000 ML IV PRN (22:13)
[2016-07-03] MEDS ORDERED: KETOROLAC TROMETHAMINE INJ/PF 30 MG/1 ML SDV IV ONE (22:13)
[2016-07-03] MEDS ORDERED: CEPHALEXIN 500 MG CAPSULE PO ONE (22:16)
[2016-07-03] MEDS ORDERED: HYDROCODONE/ACETAMINOPHEN 5-325 MG 6 TAB/DSPK PO PRN (23:34)
[2016-07-03] MEDS ORDERED: MORPHINE SULFATE 10 MG/ML INJ IV ONE (23:34)
[2016-07-04 00:08] VITALS: BP 106/53
== END 2016-07-04 00:08 | disposition home or self-care (01) ==
LOC: ER 18:40
DX: O86.20 Urinary tract infection following delivery, unspecified (principal); O90.89 Other complications of the puerperium, not elsewhere classified; R10.2 Pelvic and perineal pain; M79.606 Pain in leg, unspecified; R19.7 Diarrhea, unspecified; R00.0 Tachycardia, unspecified; Z20.828 Contact with and (suspected) exposure to other viral communicable diseases
CPT/HCPCS: 99284; 96361; 96374; 96375; 36415; 87040; 87086; 85025; 80053; 81001; 87804; 71020; 76856; J3490; J1885; J2270; J2405; J7030

== ENCOUNTER 2018-09-05 17:58 | Outpatient (CLI) | payer MEDICAID ==
[2018-09-05 18:58] LABS: APPEARANCE,URINE SLIGHTLY-CLOUDY; BILIRUBIN,URINE NEGATIVE (NEGATIVE); COLOR,URINE YELLOW; GLUCOSE, URINE NEGATIVE (NEGATIVE); KETONES,URINE TRACE mg/dL (NEGATIVE); LEUKOCYTE ESTERASE,URINE NEGATIVE (NEGATIVE); NITRITE,URINE NEGATIVE (NEGATIVE); PROTEIN,URINE NEGATIVE (NEGATIVE); URINE SPECIFIC GRAVITY 1.009; UROBILINOGEN,URINE NEGATIVE mg/dL (<2.0)
[2018-09-05 19:14] LABS: URINE AMPHETAMINES SCREEN NEGATIVE; URINE BARBITURATES SCREEN NEGATIVE; URINE BENZODIAZEPINES SCREEN NEGATIVE; URINE COCAINE SCREEN NEGATIVE; URINE MARIJUANA (THC) SCREEN NEGATIVE; URINE METHADONE SCREEN NEGATIVE; URINE PHENCYCLIDINE SCREEN NEGATIVE
--- NOTE | 2018-09-05 20:19 | RADIOLOGY REPORT (SQ) ---
EXAM DESCRIPTION: US LIMITED COMPLETED DATE/TME: 09/05/2018 00:00 CLINICAL HISTORY: 28 years, Female, placental location/ r/o abruption, well being COMPARISON: Prior ultrasound from 07/03/2016. TECHNIQUE: Transabdominal ultrasound was performed. LIMITATIONS: None. FINDINGS: A single intrauterine gestation is identified. position is breech. The cervix is closed, measuring 3.7 cm in length. heart rate is 149 bpm. The placenta is posterior in location, demonstrating multiple placental lakes. No obvious focus of abruption is identified. Biparietal diameter is 8.55 cm Head circumference is 31.64 cm Amniotic fluid index is 16.2 cm Abdominal circumference is 29.49 cm A four-chamber heart is identified. Femoral length is 6.54 cm Estimated gestational age is 34 weeks and 2 days. IMPRESSION: Single viable intrauterine with measurements as above described. The placenta is posteriorly located demonstrating multiple placental lakes. However, no obvious abruption is identified. copyright 2010 [employer]- All Rights Reserved
== END 2018-09-05 20:48 | disposition home or self-care (01) ==
LOC: LB 17:58 → LC 20:48
PROVIDERS: ATTEND Obstetrics & Gynecology
PROC: 4A1HXCZ Monitoring of Products of Conception, Cardiac Rate, External Approach (ICD-10-PCS; principal; 2018-09-05)
DX: Z34.93 Encounter for supervision of normal pregnancy, unspecified, third trimester (principal); Z3A.33 33 weeks gestation of pregnancy
CPT/HCPCS: 59025; 76815; 80307; 81001

== ENCOUNTER 2018-10-02 22:37 | Outpatient (CLI) | payer MEDICAID ==
[2018-10-02 23:24] LABS: APPEARANCE,URINE SLIGHTLY-CLOUDY; BILIRUBIN,URINE NEGATIVE (NEGATIVE); COLOR,URINE STRAW; GLUCOSE, URINE NEGATIVE (NEGATIVE); KETONES,URINE NEGATIVE (NEGATIVE); LEUKOCYTE ESTERASE,URINE NEGATIVE (NEGATIVE); NITRITE,URINE NEGATIVE (NEGATIVE); PROTEIN,URINE NEGATIVE (NEGATIVE); URINE SPECIFIC GRAVITY 1.003; UROBILINOGEN,URINE NEGATIVE mg/dL (<2.0)
[2018-10-02 23:39] LABS: URINE AMPHETAMINES SCREEN NEGATIVE; URINE BARBITURATES SCREEN NEGATIVE; URINE BENZODIAZEPINES SCREEN NEGATIVE; URINE COCAINE SCREEN NEGATIVE; URINE MARIJUANA (THC) SCREEN NEGATIVE; URINE METHADONE SCREEN NEGATIVE; URINE PHENCYCLIDINE SCREEN NEGATIVE
--- NOTE | 2018-10-03 00:29 | Non Stress Test Report ---
Non Stress Test Datetime Report Generated by CPN: 10/03/2018 00:28 DEMOGRAPHIC EGA NST: 37.3 INDICATION Indication for Study: Ordered by Provider; Other Indication for Study (NST) Other: Labor Check MONITORING Monitor Explained: Monitor Explained; Test Explained; Patient Verbalized Understanding Time on Monitor: 10/02/2018 22:54 Time off Monitor: 10/03/2018 00:09 NST Duration: 75 NST INTERVENTIONS NST Interventions: None BABY A: [id number] BABY A Movement : Present Contraction Frequency : 3-13 FHR Baseline : 135 Accelerations : 15X15 Decelerations : None Variability : Moderate 6-25bpm NST Review: Meets Criteria for Reactive NST NST Review and Verified By : NDoyle RN NST Results: Reactive NST REPORT Report Trigger: Send Report
== END 2018-10-03 00:18 | disposition home or self-care (01) ==
LOC: LC 22:37
PROVIDERS: ATTEND Obstetrics & Gynecology
PROC: 4A1HXCZ Monitoring of Products of Conception, Cardiac Rate, External Approach (ICD-10-PCS; principal; 2018-10-02)
DX: O47.1 False labor at or after 37 completed weeks of gestation (principal); Z3A.37 37 weeks gestation of pregnancy
CPT/HCPCS: 59025; 80307; 81005

== ENCOUNTER 2018-10-09 13:36 | Outpatient (CLI) | payer MEDICAID ==
[2018-10-09 14:06] LABS: APPEARANCE,URINE SLIGHTLY-CLOUDY; BILIRUBIN,URINE NEGATIVE (NEGATIVE); COLOR,URINE YELLOW; GLUCOSE, URINE NEGATIVE (NEGATIVE); KETONES,URINE NEGATIVE (NEGATIVE); LEUKOCYTE ESTERASE,URINE LARGE (NEGATIVE); NITRITE,URINE NEGATIVE (NEGATIVE); PROTEIN,URINE NEGATIVE (NEGATIVE); URINE SPECIFIC GRAVITY 1.003; UROBILINOGEN,URINE NEGATIVE mg/dL (<2.0)
[2018-10-09 14:27] LABS: URINE AMPHETAMINES SCREEN NEGATIVE; URINE BARBITURATES SCREEN NEGATIVE; URINE BENZODIAZEPINES SCREEN NEGATIVE; URINE COCAINE SCREEN NEGATIVE; URINE MARIJUANA (THC) SCREEN NEGATIVE; URINE METHADONE SCREEN NEGATIVE; URINE PHENCYCLIDINE SCREEN NEGATIVE
--- NOTE | 2018-10-09 14:44 | Non Stress Test Report ---
Non Stress Test Datetime Report Generated by CPN: 10/09/2018 14:43 DEMOGRAPHIC EGA NST: 38.3 INDICATION Indication for Study: Decreased Movement MONITORING Monitor Explained: Monitor Explained; Test Explained; Patient Verbalized Understanding Time on Monitor: 10/09/2018 13:46 Time off Monitor: 10/09/2018 14:33 NST Duration: 47 NST INTERVENTIONS NST Interventions: PO Hydration; Reposition Patient Physician Notified NST: BritTalavera, CNM BABY A: [id number] BABY A Movement : Present Contraction Frequency : 0 FHR Baseline : 130 Accelerations : 15X15 Decelerations : None Variability : Moderate 6-25bpm NST Review: Meets Criteria for Reactive NST NST Review and Verified By : JAIRON Owens Results: Reactive NST COMMENTS NST Comments: N. Talavera, CNM on unit reviewing strip NST REPORT Report Trigger: Send Report
== END 2018-10-09 14:38 | disposition home or self-care (01) ==
LOC: LC 13:36
PROVIDERS: ATTEND Obstetrics & Gynecology
PROC: 4A1HXCZ Monitoring of Products of Conception, Cardiac Rate, External Approach (ICD-10-PCS; principal; 2018-10-09)
DX: O36.8130 Decreased fetal movements, third trimester, not applicable or unspecified (principal); Z3A.38 38 weeks gestation of pregnancy
CPT/HCPCS: 59025; 80307; 81005

== ENCOUNTER 2018-10-18 17:24 | Outpatient (CLI) | payer MEDICAID ==
[2018-10-18 18:00] LABS: APPEARANCE,URINE CLOUDY; BILIRUBIN,URINE NEGATIVE (NEGATIVE); COLOR,URINE YELLOW; GLUCOSE, URINE NEGATIVE (NEGATIVE); KETONES,URINE TRACE mg/dL (NEGATIVE); LEUKOCYTE ESTERASE,URINE LARGE (NEGATIVE); NITRITE,URINE NEGATIVE (NEGATIVE); PROTEIN,URINE 30 mg/dL (NEGATIVE); URINE SPECIFIC GRAVITY 1.013
[2018-10-18 18:24] LABS: URINE AMPHETAMINES SCREEN NEGATIVE; URINE BARBITURATES SCREEN NEGATIVE; URINE BENZODIAZEPINES SCREEN NEGATIVE; URINE COCAINE SCREEN NEGATIVE; URINE MARIJUANA (THC) SCREEN NEGATIVE; URINE METHADONE SCREEN NEGATIVE; URINE PHENCYCLIDINE SCREEN NEGATIVE
--- NOTE | 2018-10-18 18:39 | Non Stress Test Report ---
Non Stress Test Datetime Report Generated by CPN: 10/18/2018 18:39 DEMOGRAPHIC EGA NST: 39.5 INDICATION Indication for Study: Other Indication for Study (NST) Other: lc MONITORING Monitor Explained: Monitor Explained; Test Explained; Patient Verbalized Understanding Time on Monitor: 10/18/2018 17:55 Time off Monitor: 10/18/2018 18:37 NST Duration: 42 NST INTERVENTIONS NST Interventions: PO Hydration; Reposition Patient Physician Notified NST: Dr Knight BABY A: [id number] BABY A Movement : Present Contraction Frequency : irreg FHR Baseline : 140 Accelerations : 15X15 Decelerations : None Variability : Moderate 6-25bpm NST Review: Meets Criteria for Reactive NST NST Review and Verified By : Mila Camp RNC NST Results: Reactive NST REPORT Report Trigger: Send Report
== END 2018-10-18 18:44 | disposition home or self-care (01) ==
LOC: LC 17:24
PROVIDERS: ATTEND Obstetrics & Gynecology
PROC: 4A1HXCZ Monitoring of Products of Conception, Cardiac Rate, External Approach (ICD-10-PCS; principal; 2018-10-18)
DX: Z34.93 Encounter for supervision of normal pregnancy, unspecified, third trimester (principal); Z3A.39 39 weeks gestation of pregnancy
CPT/HCPCS: 59025; 80307; 81005; 84112

== ENCOUNTER 2018-10-21 05:22 | Inpatient (IN) | payer MEDICAID ==
--- NOTE | 2018-10-21 05:36 | Admission Physical ---
Datetime Report Generated by CPN: 10/21/2018 05:36 CURRENT ADMISSION Chief Complaint: Uterine Contractions Indication for Induction: Not Applicable Admit Impression : Active Labor Admit Plan: Admit to Unit; Initiate Labor Protocol ALLERGIES Medication Allergies: No Medication Allergies: No Known Allergies (10/18/2018) Latex: No Latex Allergies Food Allergies: none Environmental Allergies: none OBSTETRICAL HISTORY EDC: 10/20/2018 00:00 : 5 Para: 4 Term: 4 : 0 SAB: 0 IAB: 0 Ectopic: 0 Livin Cesareans: 0 VBACs: 0 Multiple Births: 0 Gestational Diabetes: No Rh Sensitization: No Incompetent Cervix: No EVANGELIST: No Infertility: No ART Treatment: No Uterine Anomaly: No IUGR: No Hx Previous C/S: No Macrosomia: No Hx Loss/Stillborn: No PIH: No Hx : No Placenta Previa/Abruption: Yes Depression/PP Depression: No PTL/PROM: Yes Post Hemorrhage: Yes Current Procedures: Ultrasound; NST Obstetrical History Comments: G-1 40 wks anemia G2- 39+6 contractions dilated 4 cm at 28 wks G3 39.3 no complications G4- 39.2 pp hemorrhage with transfusion, anemia G5 - Current SEE RECORDS Alcohol: No Marijuana : No Cocaine: No Other Illicit Drugs: No Cigarettes: Never Smoker. 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 Surgery: Yes Heart Disease: No Hosp/Surgery: Yes Autoimmune Disorder: No Anesthetic Complications: No Kidney Disease: No Abnormal Pap Smear: Yes Neuro/Epilepsy: No Psychiatric Disorders: No Other Medical Diseases: No Hepatitis/Liver Disease: No Significant Family History: No Varicosities/Phlebitis: No Trauma/Violence : No Thyroid Dysfunction: No Medical History Comments: blood transfusion 2017, anemia, hospitalized for childbirth x4, abnormal pap with colpo 2015 INFECTIOUS HISTORY Gonorrhea: No Genital Herpes: No Chlamydia: No Tuberculosis: No Syphilis: No Hepatitis: No HIV/AIDS Exposure: No Rash or Viral Illness: No HPV: No PHYSICAL EXAM General: Normal HEENT: Normal Neurologic: Normal Thyroid: Normal Heart: Normal Lungs: Normal Breast: Deferred Back: Normal Abdomen: Normal Genitourinary Exam: Normal Extremities: Normal DTRs: Normal Pelvic Type: Adequate Vital Signs: Reviewed VAGINAL EXAM Dilatation: 6 Effacement: 80 Station: -1 MEMBRANES Pooling: Positive Membranes: Ruptured FETUS A EGA: 40.1 Monitoring: External US FHR- Baseline: 120 Variability: Moderate 6-25bpm Decelerations: None FHR Category: Category II Presentation: Vertex Admit Comment: Admit in labor. PLANS FOR LABOR AND DELIVERY Labor and Delivery: None Pain Management: Epidural Feeding Preference: Breast Benefit of Breast Feed Discussed: Yes Circumcision: N/A INFORMED CONSENT Signature: with User ID: [email or web address]
[2018-10-21] MEDS ORDERED: RINGERS SOLUTION,LACTATED 1,000 ML IV PRN (05:37)
[2018-10-21] MEDS ORDERED: OXYTOCIN 10 UNIT/ML VIAL ONE (05:48)
[2018-10-21] MEDS ORDERED: FENTANYL/BUPIVACAINE/NS/PF 300 MCG/150 ML RTUINJ EPI ONE (05:49)
[2018-10-21] MEDS ORDERED: MISOPROSTOL 0.2 MG TABLET ONE (05:49)
[2018-10-21] MEDS ORDERED: LIDOCAINE 1% INJ-PF (10 MG/ML) 30 ML SDV ONE (05:49)
[2018-10-21] MEDS ORDERED: EPHEDRINE SULFATE INJ 50 MG/1 ML AMPULE ONE (05:49)
[2018-10-21] MEDS ORDERED: BUPIVACAINE HCL 0.25 % INJ/PF (2.5 MG/1 ML) 30 ML VIAL ONE (05:50)
[2018-10-21] MEDS ORDERED: OXYTOCIN/NORMAL SALINE 20 UNIT/1,000 ML RTUINJ ONE (05:50)
[2018-10-21 06:34] LABS: ABSOLUTE MONOCYTES (AUTO) 0.6 10^3/uL (0.1-1.4); ABSOLUTE NEUT (AUTO) 4.7 10^3/uL (1.7-8.2); BASOPHILS % (AUTO) 0.4 % (0-2); EOSINOPHILS % (AUTO) 0.5 % (0-6); HEMATOCRIT 33.1 % (36.0-47.0); HEMOGLOBIN 10.7 g/dL (12.0-15.5); LYMPHOCYTES % (AUTO) 26.4 % (13-45); MEAN CORPUSCULAR HEMOGLOBIN 26.1 pg (27.0-33.4); MEAN CORPUSCULAR HGB CONC 32.4 g/dL (32.0-36.0); MEAN CORPUSCULAR VOLUME 81 fl (80-97); MONOCYTES % (AUTO) 8.8 % (3-13); PLATELET COUNT 132 10^3/uL (150-450); RED CELL DISTRIBUTION WIDTH 16.1 % (11.5-14.0); SEGMENTED NEUTROPHILS % (AUTO) 63.9 % (42-78); TOTAL CELLS COUNTED % (AUTO) 100 %; WHITE BLOOD COUNT 7.4 10^3/uL (4.0-10.5)
[2018-10-21] MEDS ORDERED: PROMETHAZINE HCL INJ 25 MG/1 ML VIAL IV PRN (07:30)
[2018-10-21] MEDS ORDERED: NA PHOS,M-B/NA PHOS,DI-BA (ADULT) 133 ML ENEMA PR PRN (07:30)
[2018-10-21] MEDS ORDERED: DIPHENHYDRAMINE HCL 25 MG CAPSULE PO PRN (07:30)
[2018-10-21] MEDS ORDERED: ACETAMINOPHEN 650 MG SUPP.RECT PR PRN (07:30)
[2018-10-21] MEDS ORDERED: MEASLES,MUMPS&RUBELLA VACC/PF 0.5 ML VIAL SUBCUT PRN (07:30)
[2018-10-21] MEDS ORDERED: BENZOCAINE/MENTHOL AEROSOL SPRAY 56 ML TOP PRN (07:30)
[2018-10-21] MEDS ORDERED: MAGNESIUM HYDROXIDE SUSP 30 ML UDCUP PO PRN (07:30)
[2018-10-21] MEDS ORDERED: PROMETHAZINE HCL 25 MG TABLET PO PRN (07:30)
[2018-10-21] MEDS ORDERED: PROMETHAZINE HCL 25 MG SUPP.RECT PR PRN (07:30)
[2018-10-21] MEDS ORDERED: ACETAMINOPHEN WITH CODEINE #3 TABLET PO PRN (07:30)
[2018-10-21] MEDS ORDERED: OXYTOCIN/NORMAL SALINE 20 UNIT/1,000 ML RTUINJ IV PRN (07:30)
[2018-10-21] MEDS ORDERED: DIPH/PERTUSS(ACELL)/TETANUS VAC/PF 0.5 ML SYR (>=10YO) IM PRN (07:30)
[2018-10-21] MEDS ORDERED: GLYCERIN/WITCH HAZEL LEAF 1 EACH MED..WIPE TP PRN (07:30)
[2018-10-21] MEDS ORDERED: ZOLPIDEM TARTRATE 5 MG TABLET PO PRN (07:30)
[2018-10-21] MEDS ORDERED: PSEUDOEPHEDRINE HCL 30 MG TABLET PO PRN (07:30)
[2018-10-21] MEDS ORDERED: DIBUCAINE 1% OINTMENT 56 GM TP PRN (07:30)
--- NOTE | 2018-10-21 09:44 | Delivery Summary ---
Del Sum A-C Datetime Report Generated by CPN: 10/21/2018 09:44 DELIVERY PERSONNEL DELIVERY PERSONNEL: [id number] Delivery Doctor:: Otto Knight MD Labor and Delivery Nurse:: JENNIFER Escalante Labor and Delivery Nurse:: Judith Marmolejo RN Bath Solution Maker/WAREHOUSE TECHNICIAN: Lilian Aguayo, STENCILING MACHINE TENDER MATERNAL INFORMATION Delivery Anesthesia: Epidural Medications After Delivery: Pitocin Bolus-Please Comment Meds After Delivery Comment: Pitocin 20 units in 1 L NS bolusing per order Estimated Blood Loss (ml): 250 Delivery QBL: 250 Maternal Complications: Precipitous Labor (<3hrs) LABOR SUMMARY EDC: 10/20/2018 00:00 No. Babies in Womb: 1 Attempted: No Labor Anesthesia: Epidural LABOR INFORMATION Reason for Induction: Not Applicable Onset of Labor: 10/21/2018 05:00 Complete Dilatation: 10/21/2018 07:10 Oxytocin: N/A Group B Beta Strep: negative Antibiotics # of Doses: 0 Reason Steroids Not Administered: Not Applicable MEMBRANES Membranes Rupture Method: Spontaneous Rupture of Membranes: 10/21/2018 07:16 Length of Rupture (hr): 0.03 Amniotic Fluid Color: Clear Amniotic Fluid Amount: Moderate Amniotic Fluid Odor: Normal STAGES OF LABOR Stage 1 hr: 2 Stage 1 min: 10 Stage 2 hr: 0 Stage 2 min: 8 Stage 3 hr: 0 Stage 3 min: 3 Total Time in Labor hr: 2 Total Time in Labor min: 21 VAGINAL DELIVERY Episiotomy: None Laceration #1: None Laceration Extension #1: N/A Laceration #2: None Laceration Extension #2: N/A Laceration #3: None Laceration Extension #3: N/A Laceration Repair: Not Applicable Sponge Count Correct: Vaginal Sweep Performed Sharps Count Correct: N/A BABY A INFORMATION Infant Delivery Date/Time: 10/21/2018 07:18 Method of Delivery: Vaginal Born in Route : No : N/A Forceps: N/A Vacuum Extraction: N/A Shoulder Dystocia : No PRESENTATION/POSITION BABY A Presentation: Cephalic Cephalic Presentation: Vertex Vertex Position: Right Occipital Anterior Breech Presentation: N/A PLACENTA INFORMATION BABY A Placenta Delivery Time : 10/21/2018 07:21 Placenta Method of Delivery: Spontaneous Placenta Status: Delivered SCORES BABY A Heart Rate 1 min: >100 bpm Resp Effort 1 min: Good Cry Reflex Irritability 1 min: Cough or Sneeze or Pulls Away Muscle Tone 1 min: Active Motion Color 1 min: Body [place], Extremities Blue SCORE 1 MIN: 9 Heart Rate 5 min: >100 bpm Resp Effort 5 min: Good Cry Reflex Irritability 5 min: Cough or Sneeze or Pulls Away Muscle Tone 5 min: Active Motion Color 5 min: Body [place], Extremities Blue SCORE 5 MIN: 9 INFANT INFORMATION BABY A Gestational Age at Delivery: 40.0 Gestational Status: Full Term- 39- 40.6 Weeks Infant Outcome : Liveborn Condition : Stable Sex: Female IDENTIFICATION BABY A Infant Verification Date/Time: 10/21/2018 07:29 ID Band Number: [id number] Mother's Name Verified: Yes RN Verifying : Lavon Additional Verifying Personnel: Velia CORD INFORMATION BABY A No. Cord Vessels: 3 Nuchal Cord : N/A Cord Blood Taken: Yes-For Storage (Mom's Blood type +) Infant Suction: Mouth ASSESSMENT BABY A Infant Complications: None Physical Findings at Delivery: Within Normal Limits Respirations: Appears Normal Skin to Skin: Yes Fisher/ALS Called : No Care By: M. Jaleel, RN Transferred To: Remains with Mother BABY B INFORMATION : N/A SIGNATURES Signature: with User ID: [email or web address]
[2018-10-21] MEDS: DOCUSATE SODIUM 100 MG CAPSULE PO SCH ×2 (10:36→17:46)
[2018-10-21] MEDS: FAMOTIDINE 20 MG TABLET PO SCH ×2 (10:36→21:50)
[2018-10-21] MEDS: SENNOSIDES/DOCUSATE 8.6-50 MG 1 EACH TABLET PO SCH (10:36)
[2018-10-21] MEDS: FERROUS SULFATE 325 MG TABLET PO SCH ×2 (10:36→17:46)
[2018-10-21] MEDS: PRENATAL VITAMIN W DHA CAPSULE PO SCH (10:36)
[2018-10-21] MEDS: ACETAMINOPHEN WITH CODEINE #3 TABLET PO PRN ×2 (10:43→18:15)
[2018-10-21] MEDS: IBUPROFEN 800 MG TABLET PO SCH ×2 (13:51→21:50)
[2018-10-22] MEDS: IBUPROFEN 800 MG TABLET PO SCH ×3 (06:15→21:44)
[2018-10-22 07:28] LABS: HEMOGLOBIN 11.4 g/dL (12.0-15.5); MEAN CORPUSCULAR HEMOGLOBIN 26.2 pg (27.0-33.4); MEAN CORPUSCULAR HGB CONC 32.7 g/dL (32.0-36.0); MEAN CORPUSCULAR VOLUME 80 fl (80-97); PLATELET COUNT 149 10^3/uL (150-450); RED BLOOD COUNT 4.37 10^6/uL (3.72-5.28); RED CELL DISTRIBUTION WIDTH 16.2 % (11.5-14.0); WHITE BLOOD COUNT 7.7 10^3/uL (4.0-10.5)
[2018-10-22] MEDS: FERROUS SULFATE 325 MG TABLET PO SCH ×2 (09:25→17:38)
[2018-10-22] MEDS: FAMOTIDINE 20 MG TABLET PO SCH ×2 (09:25→21:44)
[2018-10-22] MEDS: DOCUSATE SODIUM 100 MG CAPSULE PO SCH ×2 (09:25→17:38)
[2018-10-22] MEDS: SENNOSIDES/DOCUSATE 8.6-50 MG 1 EACH TABLET PO SCH (09:25)
[2018-10-22] MEDS: PRENATAL VITAMIN W DHA CAPSULE PO SCH (09:25)
--- NOTE | 2018-10-22 13:52 | PDOC PROGRESS REPORT ---
Subjective-OB Progress Note for:: 10/22/18 Subjective: 28yo G5 now P5 s/p ppd1. Pt. ambulating and voiding without difficulty. Denies any concerns at this time. Desires tylenol instead of T3s for pain. Physical Exam (OB) Vital Signs: Temp Pulse Resp BP Pulse Ox 98.0 F 72 22 H 102/65 99 10/22/18 08:00 10/22/18 08:00 10/22/18 08:00 10/22/18 08:00 10/22/18 08:00 Intake & Output 10/21/18 10/22/18 10/23/18 06:59 06:59 06:59 Intake Total 400 Balance 400 Weight 67.4 kg - General General Appearance: Appears well In distress: None - PIH/Pre-Eclampsia DTR's: 2 + Clonus: Negative Headache: Absent Epigastric Pain: No Visual Changes: No - Episiotomy/Laceration Site Condition: N/A - Lochia Lochia Amount: Small 10-25 ml Lochia Color: Serosa/Brown - Abdomen Description: Soft Hernia Present: No Fundal Description: Firm, Midline Fundal Height: u/u - u/2 - Respiratory Respiratory Status: No respiratory distress - Extremities Upper extremity: Normal inspection Lower extremities: Normal inspection - Neurological Cognition: Normal Orientation: AAOx4 - Psychological Associated symptoms: Normal affect, Normal mood Objective-Diagnostic Laboratory: 10/22/18 07:17 10/22/18 07:17 WBC 7.7 RBC 4.37 Hgb 11.4 L Hct 35.0 L MCV 80 MCH 26.2 L MCHC 32.7 RDW 16.2 H Plt Count 149 L Assessment and Plan(PN) - Assessment and Plan (1) Anemia complicating , third trimester Is this a current diagnosis for this admission?: Yes Plan: increase dietary iron and FeSO4 BID (2) Vaginal delivery Is this a current diagnosis for this admission?: Yes Plan: Routine pp care - Time Spent with Patient Time with patient: Less than 15 minutes Medications reviewed and adjusted accordingly: Yes - Disposition Anticipated Discharge: Home Within: within 24 hours
[2018-10-22] MEDS ORDERED: ACETAMINOPHEN 325 MG TABLET PO PRN ×2 (15:19→23:34)
[2018-10-23] MEDS: IBUPROFEN 800 MG TABLET PO SCH (06:10)
--- NOTE | 2018-10-23 10:46 | PDOC DISCHARGE SUMMARY ---
Final Diagnosis Discharge Date: 10/23/18 - PP Day #2, doing well, no complaints, ,O+ - Final Diagnosis (1) Normal course Is this a current diagnosis for this admission?: Yes (2) Anemia complicating , third trimester Is this a current diagnosis for this admission?: Yes (3) Chorioamnionitis Is this a current diagnosis for this admission?: No (4) Prolonged rupture of membranes Is this a current diagnosis for this admission?: Yes (5) Vaginal delivery Is this a current diagnosis for this admission?: Yes Discharge Data - Discharge Medication Prescriptions: Ibuprofen [Motrin 800 mg Tablet] 800 mg PO Q8 #60 tablet Home Medications: Vit 40/Iron/Folic/Dha [[facility] Multi-Dha Softgel] 1 each PO DAILY 06/30/16 Ibuprofen [Motrin 800 mg Tablet] 800 mg PO Q8 #60 tablet 10/23/18 Reason(s) for Admission: Onset of Labor Procedures: Ultrasound Intrapartum Procedure(s): Spontaneous Vaginal Delivery - Diagnosis Test Laboratory: Temp Pulse Resp BP Pulse Ox 98.1 F 62 14 114/70 100 10/23/18 07:16 10/23/18 07:16 10/23/18 07:16 10/23/18 07:16 10/23/18 07:16 10/21/18 10/22/18 06:11 07:17 RBC 4.10 4.37 Hgb 10.7 L 11.4 L Hct 33.1 L 35.0 L - Discharge information/Instructions Discharge Activity: Activity As Tolerated, No Lifting Over 10 Pounds, Pelvic Rest Discharge Diet: As Tolerated, Regular Disposition: HOME, SELF-CARE Follow up with: [facility] in: 4, Weeks
[2018-10-23] MEDS: DOCUSATE SODIUM 100 MG CAPSULE PO SCH (11:26)
[2018-10-23] MEDS: PRENATAL VITAMIN W DHA CAPSULE PO SCH (11:26)
[2018-10-23] MEDS: SENNOSIDES/DOCUSATE 8.6-50 MG 1 EACH TABLET PO SCH (11:26)
[2018-10-23] MEDS: FAMOTIDINE 20 MG TABLET PO SCH (11:26)
[2018-10-23] MEDS: FERROUS SULFATE 325 MG TABLET PO SCH (11:26)
[2018-10-23 11:38] VITALS: BP 102/65
== END 2018-10-23 13:07 | disposition home or self-care (01) | DRG 805 ==
LOC: LC 05:22 → LR 05:34 → 2S 09:45
PROVIDERS: ADMIT Obstetrics & Gynecology; ATTEND Obstetrics & Gynecology
PROC: 10E0XZZ Delivery of Products of Conception, External Approach (ICD-10-PCS; principal; 2018-10-21)
PROC: 4A1HXCZ Monitoring of Products of Conception, Cardiac Rate, External Approach (ICD-10-PCS; 2018-10-21)
DX: O62.3 Precipitate labor (principal); O41.1230 Chorioamnionitis, third trimester, not applicable or unspecified; Z37.0 Single live birth; O99.02 Anemia complicating childbirth; D64.9 Anemia, unspecified; O42.02 Full-term premature rupture of membranes, onset of labor within 24 hours of rupture; Z3A.40 40 weeks gestation of pregnancy
CPT/HCPCS: 36415; 85025; 85027; 86592; 86850; 86900; 86901; J2590; J3010; J3490